=== PATIENT | male | born 1955 | race Caucasian/White ===

== ENCOUNTER → 2017-04-21 | Outpatient (CLI) | payer BC, OTHER ==
[~2017-04-21] MED LIST: ASPI325 PO; ATOR20 PO; ATOR40TA PO; BENA20 PO; BENAML20/5 PO; Benazepril HCl5 MG PO; CEPH500 PO; ELIQUIS2.5 MG PO; ELIQUIS5 MG PO; FENO160 PO; FENO48 PO; GABA600 PO; GLIM4 PO; Keflex500 MG PO; LEVFLO250 PO; LINE600 PO; METO100ER PO; OMEP20ER PO; SPIR25 PO; Silvadene20 GM TOP; TRADJENTA5 MG PO; Toprol Xl200 MG PO; WARF10 PO
[2017-04-21 09:22] LABS: CHOL/HDL RATIO 4.3; Cholesterol 154 mg/dL (50-200); HDL Cholesterol 36 mg/dL (>39); LDL/HDL RATIO 1.3; Low Density Lipoprotein Chol 48 mg/dL (0-110); Triglycerides 348 mg/dL (30-160); Very Low Density Lipoprot Chol 70 mg/dL (6-32)
== END | disposition home or self-care (01) ==
LOC: LAB DAV 08:53
PROVIDERS: Internal Medicine Nephrology
DX: E78.00 Pure hypercholesterolemia, unspecified (principal)
CPT/HCPCS: 80061

== ENCOUNTER → 2017-07-12 | Outpatient (CLI) | payer BC, SELFPAY | END | disposition home or self-care (01) | LOC: LAB EV 11:31 | DX: E11.65 Type 2 diabetes mellitus with hyperglycemia (principal) | CPT/HCPCS: 83036 ==

== ENCOUNTER → 2017-09-25 | Outpatient (CLI) | payer BC, SELFPAY ==
[2017-09-25 11:02] LABS: Albumin, Blood 3.8 g/dL (3.4-5.0); Bilirubin, Direct 0.1 mg/dL (0.0-0.3); Bilirubin, Indirect 0.6 mg/dL (0.1-0.7); Bilirubin, Total 0.7 mg/dL (0.1-1.0); Globulin, Blood 3.7 g/dL (2.2-4.0); Total Protein, Blood 7.5 g/dL (6.4-8.2)
== END ==
LOC: LAB DAV 09:50
PROVIDERS: Internal Medicine Nephrology
DX: R10.9 Unspecified abdominal pain (principal); R19.7 Diarrhea, unspecified
CPT/HCPCS: 80076; 82150; 83690

== ENCOUNTER 2018-05-24 08:19 | Inpatient (IN) | payer BC, MEDICARE ==
[~2018-05-24] VITALS: Ht 188 cm; Wt 131.9 kg
[~2018-05-24 08:19] MED LIST changes: -OMEP20ER PO; +OMEPRAZOLE MAGN20 MG PO
[2018-05-24] MEDS ORDERED: BIOTIN5 MG PO (08:59)
[2018-05-24] MEDS ORDERED: FURO80 PO (09:00)
[2018-05-24] MEDS ORDERED: DILT30 PO (09:00)
[2018-05-24] MEDS ORDERED: GABA100 PO (09:00)
[2018-05-24] MEDS ORDERED: NEPHRO-VITE RX1 EACH PO (09:02)
[2018-05-24] MEDS ORDERED: TAMS.4ER PO (09:02)
[2018-05-24] MEDS ORDERED: Requip0.5 MG PO (09:02)
[2018-05-24] MEDS ORDERED: INSULANPEN SC (09:03)
[2018-05-24] MEDS ORDERED: AMOCLA500 PO (09:29)
[2018-05-24 09:39] LABS: BASOPHILS ABSOLUTE AUTO 0.04 K/mm3 (0.00-0.23); BASOPHILS PERCENT AUTO 0 % (0-2); EOSINOPHILS PERCENT AUTO 2 % (0-6); Hematocrit 27.3 % (37.0-53.0); Hemoglobin 8.5 g/dL (13.5-17.5); IMMATURE GRAN ABSOLUTE AUTO 0.03 K/mm3 (0.00-0.10); IMMATURE GRAN PERCENT AUTO 0 % (0-1); LYMPHOCYTES ABSOLUTE AUTO 1.35 K/mm3 (0.84-5.20); LYMPHOCYTES PERCENT AUTO 12 % (21-46); MONOCYTES ABSOLUTE AUTO 0.88 K/mm3 (0.16-1.47); MONOCYTES PERCENT AUTO 8 % (4-13); Mean Corpuscular HGB 29.9 pg (26.0-34.0); Mean Corpuscular HGB Conc 31.1 g/dL (31.5-36.5); Mean Corpuscular Volume 96 fL (80-100); Mean Platelet Volume 11.5 fL (9.1-12.4); NEUTROPHILS ABSOLUTE AUTO 8.43 K/mm3 (1.96-9.15); NEUTROPHILS PERCENT AUTO 77 % (41-73); Platelet Count 196 K/mm3 (150-400); RDW Coefficient Variation 13.8 % (11.7-14.2); RDW Standard Deviation 48.8 fL (35.1-46.3); Red Blood Cell Count 2.84 M/mm3 (4.30-5.90); White Blood Cell Count 10.93 K/mm3 (4.00-11.30)
[2018-05-24 09:57] LABS: Albumin, Blood 3.2 g/dL (3.4-5.0); Albumin/Globulin Ratio 0.8 (0.8-1.8); Bilirubin, Total 0.4 mg/dL (0.1-1.0); Bun/Creatinine Ratio 7.3 (12.0-20.0); Calcium, Blood 8.4 mg/dL (8.5-10.1); Creatinine, Blood 4.82 mg/dL (0.60-1.20); Potassium, Blood 4.1 mmol/L (3.5-5.5); Total Protein, Blood 7.2 g/dL (6.4-8.2)
[2018-05-24] MEDS ORDERED: TRULICITY1.5 MG/0.5 SC (13:19)
[2018-05-24] MEDS ORDERED: Neupro1 EAC1 TOP (13:19)
[2018-05-24] MEDS ORDERED: VITAMIN D5000 UNIT PO (13:20)
[2018-05-24] MEDS ORDERED: FISH OIL 1,001000 MG PO (13:23)
[2018-05-24] MEDS ORDERED: DILTIAZEM 24HR300 MG PO (15:49)
--- NOTE | 2018-05-24 18:30 | NUR ---
PATIENT ADMISSION THE PATIENT WAS ADMITTED TO THE MEDICAL FLOOR, ROOM # 340 AT 1540, FROM THE . REPORT WAS RECEIVED FROM CHEO PHAM. THE PATIENT'S VITALS WNL, HE IS A&O X4, WITH LUNGS THAT WERE CLEAR, BUT DIM AT THE BASES. THE PATIENT'S ADMISSION WAS COMPLETED AT THAT TIME. THE PATIENT IS RESTING AT THIS TIME WILL CONTINUE TO MONITOR.
[2018-05-25 05:25] LABS: BASOPHILS ABSOLUTE AUTO 0.04 K/mm3 (0.00-0.23); BASOPHILS PERCENT AUTO 1 % (0-2); EOSINOPHILS ABSOLUTE AUTO 0.33 K/mm3 (0.00-0.68); EOSINOPHILS PERCENT AUTO 4 % (0-6); Hematocrit 25.2 % (37.0-53.0); Hemoglobin 8.1 g/dL (13.5-17.5); IMMATURE GRAN ABSOLUTE AUTO 0.03 K/mm3 (0.00-0.10); IMMATURE GRAN PERCENT AUTO 0 % (0-1); LYMPHOCYTES ABSOLUTE AUTO 1.36 K/mm3 (0.84-5.20); LYMPHOCYTES PERCENT AUTO 16 % (21-46); MONOCYTES ABSOLUTE AUTO 0.68 K/mm3 (0.16-1.47); MONOCYTES PERCENT AUTO 8 % (4-13); Mean Corpuscular HGB 30.5 pg (26.0-34.0); Mean Corpuscular HGB Conc 32.1 g/dL (31.5-36.5); Mean Corpuscular Volume 95 fL (80-100); Mean Platelet Volume 11.1 fL (9.1-12.4); NEUTROPHILS ABSOLUTE AUTO 6.11 K/mm3 (1.96-9.15); NEUTROPHILS PERCENT AUTO 71 % (41-73); Platelet Count 187 K/mm3 (150-400); RDW Coefficient Variation 13.8 % (11.7-14.2); RDW Standard Deviation 47.6 fL (35.1-46.3); Red Blood Cell Count 2.66 M/mm3 (4.30-5.90); White Blood Cell Count 8.55 K/mm3 (4.00-11.30)
[2018-05-25 05:45] LABS: Albumin, Blood 2.8 g/dL (3.4-5.0); Albumin/Globulin Ratio 0.8 (0.8-1.8); Bilirubin, Total 0.6 mg/dL (0.1-1.0); Bun/Creatinine Ratio 7.4 (12.0-20.0); Calcium, Blood 8.1 mg/dL (8.5-10.1); Creatinine, Blood 5.65 mg/dL (0.60-1.20); Globulin, Blood 3.7 g/dL (2.2-4.0); Magnesium, Blood 2.3 mg/dL (1.6-2.4); Phosphorus, Blood 4.8 mg/dL (2.5-4.9); Total Protein, Blood 6.5 g/dL (6.4-8.2)
--- NOTE | 2018-05-25 07:30 | NUR ---
call light in reach, a+o, waiting to talk to hospitalist, wrapped toe to protect, room air, up on own, walking rounds completed with day staff
[2018-05-25 18:26] LABS: Vancomycin, Random 8.2 ug/mL
--- NOTE | 2018-05-25 19:02 | NUR ---
SHIFT SUMMARY ANDREA WENT TO HD TODAY. STARTED NEW PIV. INDEPENDENT IN ROOM. WOUND ON L FOOT CLEANSED AND NEW DRESSING PLACED. CBGS WNL. NEED TO CALL PODIATRY ON SUNDAY PER DR VILLARREAL, SHE IS AWARE THAT THERE IS NO PODIATRY RECORDS ASSISTANT THIS WEEKEND. DENIED PAIN. TOOK MEDS PRESCRIBED. WCTM
[2018-05-26 05:10] LABS: Hematocrit 29.5 % (37.0-53.0); Hemoglobin 9.4 g/dL (13.5-17.5)
[2018-05-26 06:03] LABS: Anion Gap 9 mmol/L (6-16); Blood Urea Nitrogen 32 mg/dL (8-24); Bun/Creatinine Ratio 7.2 (12.0-20.0); CO2, Blood 34 mmol/L (21-32); Calcium, Blood 8.6 mg/dL (8.5-10.1); Chloride, Blood 96 mmol/L (98-108); Creatinine, Blood 4.42 mg/dL (0.60-1.20); Glomerular Filtration Rate 14 (60-); Glucose, Blood 115 mg/dL (70-99); Magnesium, Blood 2.4 mg/dL (1.6-2.4); Phosphorus, Blood 5.1 mg/dL (2.5-4.9); Sodium, Blood 139 mmol/L (136-145)
--- NOTE | 2018-05-26 07:31 | NUR ---
a+o, rewrapped toe post shower, awaiting chance to call poditry consult, no feeling in feet or hands, call light in reach, saline locked room air
[2018-05-26 15:54] LABS: Vancomycin, Random 17.1 ug/mL
--- NOTE | 2018-05-26 17:20 | NUR ---
SHIFT SUMMARY NO ACUTE CHANGES. PATIENT INDEPENDENT IN HIS ROOM. DENIES PAIN, NAUSEA, OR SHORTNESS OF BREATH. WOUND CARE GIVEN THIS MORNING. VISITED WITH FAMILY AT BEDSIDE. CALL LIGHT IN REACH, WILL CONTINUE TO MONITOR.
[2018-05-27 05:32] LABS: BASOPHILS ABSOLUTE AUTO 0.07 K/mm3 (0.00-0.23); BASOPHILS PERCENT AUTO 1 % (0-2); EOSINOPHILS PERCENT AUTO 5 % (0-6); Hematocrit 29.3 % (37.0-53.0); Hemoglobin 9.5 g/dL (13.5-17.5); IMMATURE GRAN ABSOLUTE AUTO 0.03 K/mm3 (0.00-0.10); IMMATURE GRAN PERCENT AUTO 0 % (0-1); LYMPHOCYTES ABSOLUTE AUTO 1.68 K/mm3 (0.84-5.20); LYMPHOCYTES PERCENT AUTO 20 % (21-46); MONOCYTES ABSOLUTE AUTO 0.71 K/mm3 (0.16-1.47); MONOCYTES PERCENT AUTO 9 % (4-13); Mean Corpuscular HGB Conc 32.4 g/dL (31.5-36.5); Mean Platelet Volume 10.7 fL (9.1-12.4); NEUTROPHILS ABSOLUTE AUTO 5.41 K/mm3 (1.96-9.15); NEUTROPHILS PERCENT AUTO 65 % (41-73); Platelet Count 210 K/mm3 (150-400); RDW Coefficient Variation 13.8 % (11.7-14.2); RDW Standard Deviation 47.2 fL (35.1-46.3); Red Blood Cell Count 3.17 M/mm3 (4.30-5.90)
[2018-05-27 05:43] LABS: Mean Corpuscular Volume 92 fL (80-100)
[2018-05-27 05:49] LABS: Albumin, Blood 2.8 g/dL (3.4-5.0); Anion Gap 8 mmol/L (6-16); Blood Urea Nitrogen 44 mg/dL (8-24); Bun/Creatinine Ratio 8.3 (12.0-20.0); CO2, Blood 32 mmol/L (21-32); Calcium, Blood 8.5 mg/dL (8.5-10.1); Chloride, Blood 98 mmol/L (98-108); Creatinine, Blood 5.31 mg/dL (0.60-1.20); Glomerular Filtration Rate 12 (60-); Glucose, Blood 72 mg/dL (70-99); Magnesium, Blood 2.2 mg/dL (1.6-2.4); Phosphorus, Blood 5.7 mg/dL (2.5-4.9); Sodium, Blood 138 mmol/L (136-145)
--- NOTE | 2018-05-27 07:31 | NUR ---
a+o, saline locked, room air, report given to day shift, concerned about dialysis and poditrey consult which are scheduled to day, informed day shift
[2018-05-27 14:52] LABS: Vancomycin, Random 14.6 ug/mL
--- NOTE | 2018-05-27 18:05 | NUR ---
SHIFT SUMMARY NO ACUTE CHANGES. DR. BALDERAS CONSULTED TODAY, PATIENT WILL HAVE TOE AMPUTATED TOMORROW. NPO AT MIDNIGHT. PATIENT DENIES PAIN, NAUSEA, OR SHORTNESS OF BREATH. INDEPENDENT IN ROOM. CALL LIGHT IN REACH, WILL CONTINUE TO MONITOR.
[2018-05-28 05:31] LABS: Hematocrit 30.6 % (37.0-53.0); Hemoglobin 9.7 g/dL (13.5-17.5)
[2018-05-28 05:48] LABS: Anion Gap 10 mmol/L (6-16); Blood Urea Nitrogen 52 mg/dL (8-24); Bun/Creatinine Ratio 9.8 (12.0-20.0); CO2, Blood 29 mmol/L (21-32); Calcium, Blood 8.4 mg/dL (8.5-10.1); Chloride, Blood 102 mmol/L (98-108); Creatinine, Blood 5.31 mg/dL (0.60-1.20); Glomerular Filtration Rate 12 (60-); Glucose, Blood 113 mg/dL (70-99); Magnesium, Blood 2.4 mg/dL (1.6-2.4); Potassium, Blood 4.6 mmol/L (3.5-5.5); Sodium, Blood 141 mmol/L (136-145)
--- NOTE | 2018-05-28 07:51 | NUR ---
ready for surgery, npo since 2099, held am meds, call light in reach, saline locked, room air, no feeling in feet, walking rounds completed with day staff
--- NOTE | 2018-05-28 10:52 | NUR ---
Patient gave permission to nursing manager to care for him.
[2018-05-28 12:31] LABS: Vancomycin, Random 12.7 ug/mL
--- NOTE | 2018-05-28 13:34 | NUR ---
PT SDS A&O. VSS. 18G IV TO RT AC PATENT. LT ARM HAS FISTULA.
--- NOTE | 2018-05-28 13:46 | NUR ---
AND DR SANTIAGO HAS SEEN PT. NO NEW ORDERS GIVEN. PT DOES NOT HAVE FAMILY HERE BUT NUMBER FROM WAS OBTAINED.
--- NOTE | 2018-05-28 13:56 | NUR ---
DIRECTOR PAYMENT RN (YOLI). BEDSIDE REPORT DONE.
--- NOTE | 2018-05-28 14:29 | NUR ---
05/28/18 1429 Niranjan Duke LIDOCAINE 1% AND BUPIVICAINE 0.5% 1:1 MIXTURE GIVEN PRIOR TO INCISION.
--- NOTE | 2018-05-28 16:09 | NUR ---
PATIENT RETURNED FROM SURGERY @ 4939. A&O X4, WOUND VAC IN PLACE. 4TH AND 5TH TOE AMPUTATED. DENIES ANY PAIN, NAUSEA, OR SOB. DENIES ANY OTHER COMPLAINS. VITAL SIGNS BP 116/73, PULSE 75, RESP 16, TEMP 97.7, 98%. POST OP VITALS PER PROTOCOL. RN WILL CONTINUE TO MONITOR.
--- NOTE | 2018-05-28 19:26 | NUR ---
PATIENT A&O X4. DENIES ANY PAIN, NAUSEA, SOB. SURGERY TODAY, LEFT 4TH AND 5TH TOE AMPUTATION. WOUND VAC IN PLACE. EXTREMETY ELEVATED. FLUIDS RUNNING PER ORDER. POST OP VSS. NO ACUTE CHANGES.
[2018-05-29 06:11] LABS: BASOPHILS ABSOLUTE AUTO 0.06 K/mm3 (0.00-0.23); BASOPHILS PERCENT AUTO 1 % (0-2); EOSINOPHILS ABSOLUTE AUTO 0.23 K/mm3 (0.00-0.68); EOSINOPHILS PERCENT AUTO 3 % (0-6); Hematocrit 35.8 % (37.0-53.0); Hemoglobin 11.6 g/dL (13.5-17.5); IMMATURE GRAN ABSOLUTE AUTO 0.03 K/mm3 (0.00-0.10); IMMATURE GRAN PERCENT AUTO 0 % (0-1); LYMPHOCYTES ABSOLUTE AUTO 1.68 K/mm3 (0.84-5.20); LYMPHOCYTES PERCENT AUTO 21 % (21-46); MONOCYTES ABSOLUTE AUTO 0.58 K/mm3 (0.16-1.47); MONOCYTES PERCENT AUTO 7 % (4-13); Mean Corpuscular HGB 29.7 pg (26.0-34.0); Mean Corpuscular HGB Conc 32.4 g/dL (31.5-36.5); Mean Corpuscular Volume 92 fL (80-100); Mean Platelet Volume 11.1 fL (9.1-12.4); NEUTROPHILS ABSOLUTE AUTO 5.28 K/mm3 (1.96-9.15); NEUTROPHILS PERCENT AUTO 67 % (41-73); Platelet Count 166 K/mm3 (150-400); RDW Coefficient Variation 13.9 % (11.7-14.2); RDW Standard Deviation 46.5 fL (35.1-46.3); White Blood Cell Count 7.86 K/mm3 (4.00-11.30)
[2018-05-29 06:12] LABS: Albumin, Blood 2.9 g/dL (3.4-5.0); Anion Gap 8 mmol/L (6-16); Blood Urea Nitrogen 41 mg/dL (8-24); Bun/Creatinine Ratio 9.1 (12.0-20.0); CO2, Blood 28 mmol/L (21-32); Calcium, Blood 8.2 mg/dL (8.5-10.1); Chloride, Blood 103 mmol/L (98-108); Creatinine, Blood 4.52 mg/dL (0.60-1.20); Glomerular Filtration Rate 14 (60-); Glucose, Blood 111 mg/dL (70-99); Magnesium, Blood 2.2 mg/dL (1.6-2.4); Phosphorus, Blood 5.3 mg/dL (2.5-4.9); Potassium, Blood 4.7 mmol/L (3.5-5.5); Sodium, Blood 139 mmol/L (136-145)
--- NOTE | 2018-05-29 07:29 | NUR ---
room air, ns infusing, call light in reach, walking rounds completed with day staff, wound vac working well
--- NOTE | 2018-05-29 11:19 | NUR ---
SPOKE WITH DR. GARCIA STATED TO HOLD OFF WOUND VAC CHANGES UNTIL 05/30.
[2018-05-29 16:40] LABS: Vancomycin, Random 19.8 ug/mL
[2018-05-29] MEDS ORDERED: ACET325 PO (17:26)
[2018-05-29] MEDS ORDERED: Bactrim Ds Tab1 EACH PO (17:27)
--- NOTE | 2018-05-29 19:49 | NUR ---
SHIFT SUMMARY PATIENT A&O X4, INDEPENDENT IN THE ROOM. DENIES ANY PAIN. IV X2 IN RIGHT ARM D/C, WNL. DISCHARGE INSTRUCTIONS REVIEWED. WOUND VAC IN PLACE. EXTRA WOUNDVAC SUPPLIES SENT WITH PATIENT. FOLLOW UP APPOINTMENT MADE WITH DR. BALDERAS TOMORROW AT 1030AM. ALL BELONGINGS IN HAND. ESCORTED OUT IN WHEELCHAIR BY BLENDER OPERATOR.
== END 2018-05-29 18:51 | disposition home or self-care (01) | DRG 617 ==
LOC: ER 08:19 → ERHOLD 10:41 → MEDS 10:41
PROVIDERS: Emergency Medicine; Internal Medicine Nephrology; Orthopaedic Surgery; Pharmacist; ADMIT Internal Medicine
PROC: 5A1D70Z Performance of Urinary Filtration, Intermittent, Less than 6 Hours Per Day (ICD-10-PCS; 2018-05-25)
PROC: 30233N1 Transfusion of Nonautologous Red Blood Cells into Peripheral Vein, Percutaneous Approach (ICD-10-PCS; 2018-05-25)
PROC: 0Y6W0Z0 Detachment at Left 4th Toe, Complete, Open Approach (ICD-10-PCS; 2018-05-28)
PROC: 0JBR0ZZ Excision of Left Foot Subcutaneous Tissue and Fascia, Open Approach (ICD-10-PCS; 2018-05-28)
PROC: 5A1D70Z Performance of Urinary Filtration, Intermittent, Less than 6 Hours Per Day (ICD-10-PCS; 2018-05-28)
PROC: 0Y6Y0Z0 Detachment at Left 5th Toe, Complete, Open Approach (ICD-10-PCS; principal; 2018-05-28 14:00)
DX: E11.69 Type 2 diabetes mellitus with other specified complication (principal); E11.52 Type 2 diabetes mellitus with diabetic peripheral angiopathy with gangrene; I96 Gangrene, not elsewhere classified; I12.0 Hypertensive chronic kidney disease with stage 5 chronic kidney disease or end stage renal disease; M86.9 Osteomyelitis, unspecified; E11.621 Type 2 diabetes mellitus with foot ulcer; L97.523 Non-pressure chronic ulcer of other part of left foot with necrosis of muscle; N18.6 End stage renal disease; E11.22 Type 2 diabetes mellitus with diabetic chronic kidney disease; Z99.2 Dependence on renal dialysis; Z87.891 Personal history of nicotine dependence; N40.1 Benign prostatic hyperplasia with lower urinary tract symptoms; G47.33 Obstructive sleep apnea (adult) (pediatric); E11.42 Type 2 diabetes mellitus with diabetic polyneuropathy; E66.01 Morbid (severe) obesity due to excess calories; K21.9 Gastro-esophageal reflux disease without esophagitis; Z86.718 Personal history of other venous thrombosis and embolism; E78.5 Hyperlipidemia, unspecified; E11.610 Type 2 diabetes mellitus with diabetic neuropathic arthropathy; L03.032 Cellulitis of left toe; G25.81 Restless legs syndrome
CPT/HCPCS: 36415; 80053; 80069; 80202; 82947; 83735; 84100; 84132; 85014; 85018; 85025; 85651; 86140; 86850; 86900; 86901; 86923; 87040; 87070; 87071; 87075; 87205; 93005; 93010; 93922; 93971; 96374; 96375; 99285-25; J0696; J0881; J2250; J3010; J3370; J7030; J7050; P9016

== ENCOUNTER 2018-06-07 00:18 | Day surgery (SDC) | payer BC, MEDICARE ==
[~2018-06-07 00:18] MED LIST changes: +ACET325 PO; +AMOCLA500 PO; +BIOTIN5 MG PO; +Bactrim Ds Tab1 EACH PO; +DILT30 PO; +DILTIAZEM 24HR300 MG PO; +FISH OIL 1,001000 MG PO; +FURO80 PO; +GABA100 PO; +INSULANPEN SC; +NEPHRO-VITE RX1 EACH PO; +Neupro1 EAC1 TOP; +Requip0.5 MG PO; +TAMS.4ER PO; +TRULICITY1.5 MG/0.5 SC; +VITAMIN D5000 UNIT PO
== END 2018-06-07 12:00 | disposition home or self-care (01) ==
LOC: WOUND 00:18
DX: E11.621 Type 2 diabetes mellitus with foot ulcer (principal); L97.522 Non-pressure chronic ulcer of other part of left foot with fat layer exposed; E11.69 Type 2 diabetes mellitus with other specified complication; M86.9 Osteomyelitis, unspecified; G47.30 Sleep apnea, unspecified; E11.51 Type 2 diabetes mellitus with diabetic peripheral angiopathy without gangrene; E11.22 Type 2 diabetes mellitus with diabetic chronic kidney disease; I13.2 Hypertensive heart and chronic kidney disease with heart failure and with stage 5 chronic kidney disease, or end stage renal disease; N18.6 End stage renal disease; E11.40 Type 2 diabetes mellitus with diabetic neuropathy, unspecified; I82.409 Acute embolism and thrombosis of unspecified deep veins of unspecified lower extremity; I49.9 Cardiac arrhythmia, unspecified; M14.672 Charcot's joint, left ankle and foot
CPT/HCPCS: G0463

== ENCOUNTER 2018-06-10 13:46 | Day surgery (SDC) | payer BC, MEDICARE | END 2018-06-10 22:49 | disposition home or self-care (01) | LOC: WOUND 13:46 | DX: T81.89XA Other complications of procedures, not elsewhere classified, initial encounter (principal); E11.621 Type 2 diabetes mellitus with foot ulcer; L97.826 Non-pressure chronic ulcer of other part of left lower leg with bone involvement without evidence of necrosis; I13.2 Hypertensive heart and chronic kidney disease with heart failure and with stage 5 chronic kidney disease, or end stage renal disease; E11.22 Type 2 diabetes mellitus with diabetic chronic kidney disease; N18.6 End stage renal disease; I50.9 Heart failure, unspecified; I48.91 Unspecified atrial fibrillation; E11.42 Type 2 diabetes mellitus with diabetic polyneuropathy; E11.40 Type 2 diabetes mellitus with diabetic neuropathy, unspecified; E78.5 Hyperlipidemia, unspecified; G47.30 Sleep apnea, unspecified; Z86.718 Personal history of other venous thrombosis and embolism; Z89.422 Acquired absence of other left toe(s); Z87.39 Personal history of other diseases of the musculoskeletal system and connective tissue ==

== ENCOUNTER 2018-06-14 00:22 | Day surgery (SDC) | payer BC, MEDICARE | END 2018-06-14 23:19 | disposition home or self-care (01) | LOC: WOUND 00:22 | DX: E11.621 Type 2 diabetes mellitus with foot ulcer (principal); M86.9 Osteomyelitis, unspecified; E11.40 Type 2 diabetes mellitus with diabetic neuropathy, unspecified; I13.11 Hypertensive heart and chronic kidney disease without heart failure, with stage 5 chronic kidney disease, or end stage renal disease; E11.22 Type 2 diabetes mellitus with diabetic chronic kidney disease; I50.9 Heart failure, unspecified; N18.6 End stage renal disease; I25.10 Atherosclerotic heart disease of native coronary artery without angina pectoris; G47.30 Sleep apnea, unspecified; Z89.422 Acquired absence of other left toe(s); Z87.39 Personal history of other diseases of the musculoskeletal system and connective tissue ==

== ENCOUNTER 2018-06-19 01:25 | Day surgery (SDC) | payer BC, MEDICARE | END 2018-06-19 23:11 | disposition home or self-care (01) | LOC: WOUND 01:25 | DX: E11.69 Type 2 diabetes mellitus with other specified complication (principal); M86.8X8 Other osteomyelitis, other site; S91.105A Unspecified open wound of left lesser toe(s) without damage to nail, initial encounter; E11.42 Type 2 diabetes mellitus with diabetic polyneuropathy; M14.672 Charcot's joint, left ankle and foot; Z89.442 Acquired absence of left ankle; Z87.39 Personal history of other diseases of the musculoskeletal system and connective tissue | CPT/HCPCS: G0463 ==

== ENCOUNTER 2018-06-21 15:00 | Day surgery (SDC) | payer BC, MEDICARE | END 2018-06-21 23:05 | disposition home or self-care (01) | LOC: WOUND 15:00 | DX: E11.69 Type 2 diabetes mellitus with other specified complication (principal); L97.526 Non-pressure chronic ulcer of other part of left foot with bone involvement without evidence of necrosis; M14.672 Charcot's joint, left ankle and foot; E11.42 Type 2 diabetes mellitus with diabetic polyneuropathy; I13.2 Hypertensive heart and chronic kidney disease with heart failure and with stage 5 chronic kidney disease, or end stage renal disease; E11.22 Type 2 diabetes mellitus with diabetic chronic kidney disease; N18.6 End stage renal disease; I50.9 Heart failure, unspecified; I48.91 Unspecified atrial fibrillation; G47.30 Sleep apnea, unspecified; E78.5 Hyperlipidemia, unspecified; Z89.422 Acquired absence of other left toe(s); Z86.718 Personal history of other venous thrombosis and embolism ==

== ENCOUNTER 2018-06-24 00:20 | Day surgery (SDC) | payer BC, MEDICARE | END 2018-06-24 22:46 | disposition home or self-care (01) | LOC: WOUND 00:20 | DX: T81.89XA Other complications of procedures, not elsewhere classified, initial encounter (principal); E11.621 Type 2 diabetes mellitus with foot ulcer; L97.522 Non-pressure chronic ulcer of other part of left foot with fat layer exposed; G47.30 Sleep apnea, unspecified; E11.51 Type 2 diabetes mellitus with diabetic peripheral angiopathy without gangrene; E11.42 Type 2 diabetes mellitus with diabetic polyneuropathy; E11.22 Type 2 diabetes mellitus with diabetic chronic kidney disease; I13.2 Hypertensive heart and chronic kidney disease with heart failure and with stage 5 chronic kidney disease, or end stage renal disease; I50.9 Heart failure, unspecified; N18.6 End stage renal disease; Z89.422 Acquired absence of other left toe(s) ==

== ENCOUNTER 2018-06-26 14:55 | Day surgery (SDC) | payer BC, MEDICARE | END 2018-06-26 22:59 | disposition home or self-care (01) | LOC: WOUND 14:55 | DX: T87.89 Other complications of amputation stump (principal); E11.622 Type 2 diabetes mellitus with other skin ulcer; L97.526 Non-pressure chronic ulcer of other part of left foot with bone involvement without evidence of necrosis; E11.51 Type 2 diabetes mellitus with diabetic peripheral angiopathy without gangrene; E11.22 Type 2 diabetes mellitus with diabetic chronic kidney disease; I13.2 Hypertensive heart and chronic kidney disease with heart failure and with stage 5 chronic kidney disease, or end stage renal disease; I50.9 Heart failure, unspecified; E11.40 Type 2 diabetes mellitus with diabetic neuropathy, unspecified; N18.6 End stage renal disease; G47.30 Sleep apnea, unspecified ==

== ENCOUNTER 2018-06-28 15:25 | Day surgery (SDC) | payer BC, MEDICARE | END 2018-06-28 23:37 | disposition home or self-care (01) | LOC: WOUND 15:25 | DX: T81.89XA Other complications of procedures, not elsewhere classified, initial encounter (principal); E11.621 Type 2 diabetes mellitus with foot ulcer; L97.526 Non-pressure chronic ulcer of other part of left foot with bone involvement without evidence of necrosis; E11.22 Type 2 diabetes mellitus with diabetic chronic kidney disease; I13.2 Hypertensive heart and chronic kidney disease with heart failure and with stage 5 chronic kidney disease, or end stage renal disease; I50.9 Heart failure, unspecified; N18.6 End stage renal disease; E11.40 Type 2 diabetes mellitus with diabetic neuropathy, unspecified; E11.51 Type 2 diabetes mellitus with diabetic peripheral angiopathy without gangrene; G47.30 Sleep apnea, unspecified ==

== ENCOUNTER 2018-07-01 10:51 | Day surgery (SDC) | payer BC, MEDICARE | END 2018-07-01 22:46 | disposition home or self-care (01) | LOC: WOUND 10:51 | DX: T87.89 Other complications of amputation stump (principal); E11.621 Type 2 diabetes mellitus with foot ulcer; L97.526 Non-pressure chronic ulcer of other part of left foot with bone involvement without evidence of necrosis; E11.42 Type 2 diabetes mellitus with diabetic polyneuropathy; M14.672 Charcot's joint, left ankle and foot; E11.51 Type 2 diabetes mellitus with diabetic peripheral angiopathy without gangrene; E11.40 Type 2 diabetes mellitus with diabetic neuropathy, unspecified; E11.22 Type 2 diabetes mellitus with diabetic chronic kidney disease; I13.2 Hypertensive heart and chronic kidney disease with heart failure and with stage 5 chronic kidney disease, or end stage renal disease; N18.6 End stage renal disease ==

== ENCOUNTER 2018-07-03 14:44 | Day surgery (SDC) | payer BC, MEDICARE | END 2018-07-03 22:42 | disposition home or self-care (01) | LOC: WOUND 14:44 | DX: T87.89 Other complications of amputation stump (principal); E11.621 Type 2 diabetes mellitus with foot ulcer; L97.526 Non-pressure chronic ulcer of other part of left foot with bone involvement without evidence of necrosis; M14.672 Charcot's joint, left ankle and foot; E11.42 Type 2 diabetes mellitus with diabetic polyneuropathy; G47.30 Sleep apnea, unspecified; E11.51 Type 2 diabetes mellitus with diabetic peripheral angiopathy without gangrene; I13.2 Hypertensive heart and chronic kidney disease with heart failure and with stage 5 chronic kidney disease, or end stage renal disease; I50.9 Heart failure, unspecified; N18.6 End stage renal disease; E11.40 Type 2 diabetes mellitus with diabetic neuropathy, unspecified; Z89.422 Acquired absence of other left toe(s); Z87.39 Personal history of other diseases of the musculoskeletal system and connective tissue ==

== ENCOUNTER 2018-07-05 14:50 | Day surgery (SDC) | payer BC, MEDICARE | END 2018-07-05 15:32 | disposition home or self-care (01) | LOC: WOUND 14:50 | DX: T87.89 Other complications of amputation stump (principal); E11.621 Type 2 diabetes mellitus with foot ulcer; L97.526 Non-pressure chronic ulcer of other part of left foot with bone involvement without evidence of necrosis; M14.672 Charcot's joint, left ankle and foot; E11.42 Type 2 diabetes mellitus with diabetic polyneuropathy; E11.22 Type 2 diabetes mellitus with diabetic chronic kidney disease; I13.2 Hypertensive heart and chronic kidney disease with heart failure and with stage 5 chronic kidney disease, or end stage renal disease; I50.9 Heart failure, unspecified; N18.6 End stage renal disease; G47.30 Sleep apnea, unspecified; Z89.422 Acquired absence of other left toe(s); Z87.39 Personal history of other diseases of the musculoskeletal system and connective tissue ==

== ENCOUNTER 2018-07-08 11:14 | Day surgery (SDC) | payer BC, MEDICARE | END 2018-07-08 22:48 | disposition home or self-care (01) | LOC: WOUND 11:14 | DX: T87.89 Other complications of amputation stump (principal); E11.621 Type 2 diabetes mellitus with foot ulcer; L97.526 Non-pressure chronic ulcer of other part of left foot with bone involvement without evidence of necrosis; G47.30 Sleep apnea, unspecified; E11.22 Type 2 diabetes mellitus with diabetic chronic kidney disease; I13.2 Hypertensive heart and chronic kidney disease with heart failure and with stage 5 chronic kidney disease, or end stage renal disease; I50.9 Heart failure, unspecified; N18.6 End stage renal disease; E11.51 Type 2 diabetes mellitus with diabetic peripheral angiopathy without gangrene; E11.42 Type 2 diabetes mellitus with diabetic polyneuropathy; I48.91 Unspecified atrial fibrillation; E78.5 Hyperlipidemia, unspecified; M14.672 Charcot's joint, left ankle and foot; Z86.718 Personal history of other venous thrombosis and embolism; Z87.39 Personal history of other diseases of the musculoskeletal system and connective tissue; Z89.422 Acquired absence of other left toe(s) ==

== ENCOUNTER 2018-07-10 14:40 | Day surgery (SDC) | payer BC, MEDICARE | END 2018-07-10 22:48 | disposition home or self-care (01) | LOC: WOUND 14:40 | DX: T87.89 Other complications of amputation stump (principal); E11.69 Type 2 diabetes mellitus with other specified complication; M86.9 Osteomyelitis, unspecified; E11.42 Type 2 diabetes mellitus with diabetic polyneuropathy; I13.0 Hypertensive heart and chronic kidney disease with heart failure and stage 1 through stage 4 chronic kidney disease, or unspecified chronic kidney disease; E11.22 Type 2 diabetes mellitus with diabetic chronic kidney disease; N18.6 End stage renal disease; I50.9 Heart failure, unspecified; I48.91 Unspecified atrial fibrillation; G47.30 Sleep apnea, unspecified; E78.5 Hyperlipidemia, unspecified; Z86.718 Personal history of other venous thrombosis and embolism ==

== ENCOUNTER 2018-07-12 14:54 | Day surgery (SDC) | payer BC, MEDICARE | END 2018-07-12 23:00 | disposition home or self-care (01) | LOC: WOUND 14:54 | DX: T87.89 Other complications of amputation stump (principal); E11.621 Type 2 diabetes mellitus with foot ulcer; L97.529 Non-pressure chronic ulcer of other part of left foot with unspecified severity; M14.672 Charcot's joint, left ankle and foot; E11.42 Type 2 diabetes mellitus with diabetic polyneuropathy; Z89.422 Acquired absence of other left toe(s); Z87.39 Personal history of other diseases of the musculoskeletal system and connective tissue ==

== ENCOUNTER 2018-07-15 11:07 | Day surgery (SDC) | payer BC, MEDICARE | END 2018-07-15 23:06 | disposition home or self-care (01) | LOC: WOUND 11:07 | DX: T87.89 Other complications of amputation stump (principal); M14.672 Charcot's joint, left ankle and foot; E11.42 Type 2 diabetes mellitus with diabetic polyneuropathy; G47.30 Sleep apnea, unspecified; E78.5 Hyperlipidemia, unspecified; E11.22 Type 2 diabetes mellitus with diabetic chronic kidney disease; I13.2 Hypertensive heart and chronic kidney disease with heart failure and with stage 5 chronic kidney disease, or end stage renal disease; I50.9 Heart failure, unspecified; N18.6 End stage renal disease; Z87.39 Personal history of other diseases of the musculoskeletal system and connective tissue; Z89.422 Acquired absence of other left toe(s); Z86.718 Personal history of other venous thrombosis and embolism ==

== ENCOUNTER 2018-07-24 14:35 | Day surgery (SDC) | payer BC, MEDICARE | END 2018-07-25 22:48 | disposition home or self-care (01) | LOC: WOUND 14:35 | DX: E11.69 Type 2 diabetes mellitus with other specified complication (principal); M86.9 Osteomyelitis, unspecified; E11.622 Type 2 diabetes mellitus with other skin ulcer; L97.822 Non-pressure chronic ulcer of other part of left lower leg with fat layer exposed; M14.672 Charcot's joint, left ankle and foot; I13.0 Hypertensive heart and chronic kidney disease with heart failure and stage 1 through stage 4 chronic kidney disease, or unspecified chronic kidney disease; E11.22 Type 2 diabetes mellitus with diabetic chronic kidney disease; N18.6 End stage renal disease; I50.9 Heart failure, unspecified; E11.42 Type 2 diabetes mellitus with diabetic polyneuropathy; E78.5 Hyperlipidemia, unspecified; I48.91 Unspecified atrial fibrillation; G47.30 Sleep apnea, unspecified; Z86.718 Personal history of other venous thrombosis and embolism; Z89.422 Acquired absence of other left toe(s); Z87.39 Personal history of other diseases of the musculoskeletal system and connective tissue ==

== ENCOUNTER 2018-08-07 11:26 | Day surgery (SDC) | payer BC, MEDICARE | END 2018-08-07 22:48 | disposition home or self-care (01) | LOC: WOUND 11:26 | DX: E11.69 Type 2 diabetes mellitus with other specified complication (principal); E11.621 Type 2 diabetes mellitus with foot ulcer; M86.9 Osteomyelitis, unspecified; L97.522 Non-pressure chronic ulcer of other part of left foot with fat layer exposed; M14.672 Charcot's joint, left ankle and foot; I13.0 Hypertensive heart and chronic kidney disease with heart failure and stage 1 through stage 4 chronic kidney disease, or unspecified chronic kidney disease; E11.22 Type 2 diabetes mellitus with diabetic chronic kidney disease; N18.6 End stage renal disease; I50.9 Heart failure, unspecified; E11.42 Type 2 diabetes mellitus with diabetic polyneuropathy; I48.91 Unspecified atrial fibrillation; G47.30 Sleep apnea, unspecified; E78.5 Hyperlipidemia, unspecified; Z86.718 Personal history of other venous thrombosis and embolism; Z89.422 Acquired absence of other left toe(s); Z87.39 Personal history of other diseases of the musculoskeletal system and connective tissue | CPT/HCPCS: G0463 ==

== ENCOUNTER 2018-08-14 15:03 | Day surgery (SDC) | payer BC, MEDICARE | END 2018-08-14 22:53 | disposition home or self-care (01) | LOC: WOUND 15:03 | DX: T81.89XA Other complications of procedures, not elsewhere classified, initial encounter (principal); E11.621 Type 2 diabetes mellitus with foot ulcer; L97.522 Non-pressure chronic ulcer of other part of left foot with fat layer exposed; G47.30 Sleep apnea, unspecified; I13.2 Hypertensive heart and chronic kidney disease with heart failure and with stage 5 chronic kidney disease, or end stage renal disease; I50.9 Heart failure, unspecified; N18.6 End stage renal disease; E11.51 Type 2 diabetes mellitus with diabetic peripheral angiopathy without gangrene; M14.672 Charcot's joint, left ankle and foot; E11.42 Type 2 diabetes mellitus with diabetic polyneuropathy; Z89.422 Acquired absence of other left toe(s); Z87.39 Personal history of other diseases of the musculoskeletal system and connective tissue | CPT/HCPCS: G0463 ==

== ENCOUNTER 2018-08-27 11:16 | Emergency (ER) | payer BC, MEDICARE ==
[~2018-08-27] VITALS: Ht 188 cm; Wt 129.3 kg
[2018-08-27 11:57] LABS: BASOPHILS ABSOLUTE AUTO 0.09 K/mm3 (0.00-0.23); BASOPHILS PERCENT AUTO 1 % (0-2); EOSINOPHILS ABSOLUTE AUTO 0.24 K/mm3 (0.00-0.68); EOSINOPHILS PERCENT AUTO 4 % (0-6); Hematocrit 34.1 % (37.0-53.0); Hemoglobin 11.3 g/dL (13.5-17.5); IMMATURE GRAN ABSOLUTE AUTO 0.03 K/mm3 (0.00-0.10); IMMATURE GRAN PERCENT AUTO 0 % (0-1); LYMPHOCYTES ABSOLUTE AUTO 1.05 K/mm3 (0.84-5.20); LYMPHOCYTES PERCENT AUTO 15 % (21-46); MONOCYTES ABSOLUTE AUTO 0.56 K/mm3 (0.16-1.47); MONOCYTES PERCENT AUTO 8 % (4-13); Mean Corpuscular HGB 31.9 pg (26.0-34.0); Mean Corpuscular HGB Conc 33.1 g/dL (31.5-36.5); Mean Corpuscular Volume 96 fL (80-100); Mean Platelet Volume 11.3 fL (9.1-12.4); NEUTROPHILS ABSOLUTE AUTO 4.98 K/mm3 (1.96-9.15); NEUTROPHILS PERCENT AUTO 72 % (41-73); Platelet Count 183 K/mm3 (150-400); RDW Coefficient Variation 14.5 % (11.7-14.2); RDW Standard Deviation 50.4 fL (35.1-46.3); Red Blood Cell Count 3.54 M/mm3 (4.30-5.90); White Blood Cell Count 6.95 K/mm3 (4.00-11.30)
[2018-08-27 12:20] LABS: Alanine Aminotransfer (ALT/SGP 31 U/L (12-78); Albumin, Blood 3.8 g/dL (3.4-5.0); Albumin/Globulin Ratio 1.1 (0.8-1.8); Alk Phos 135 U/L (50-136); Anion Gap 7 mmol/L (6-16); Aspartate Aminotrans (AST/SGOT 23 U/L (12-37); Bilirubin, Total 0.4 mg/dL (0.1-1.0); Blood Urea Nitrogen 30 mg/dL (8-24); Bun/Creatinine Ratio 11.2 (12.0-20.0); CO2, Blood 35 mmol/L (21-32); Calcium, Blood 8.7 mg/dL (8.5-10.1); Chloride, Blood 97 mmol/L (98-108); Creatinine, Blood 2.67 mg/dL (0.60-1.20); Globulin, Blood 3.6 g/dL (2.2-4.0); Glomerular Filtration Rate 26 (60-); Glucose, Blood 223 mg/dL (70-99); Potassium, Blood 4.2 mmol/L (3.5-5.5); Sodium, Blood 139 mmol/L (136-145); Total Protein, Blood 7.4 g/dL (6.4-8.2); Troponin I <0.015 ng/mL (0.000-0.040)
== END 2018-08-27 14:23 | disposition home or self-care (01) ==
LOC: ER 11:16
PROVIDERS: Emergency Medicine
DX: R07.81 Pleurodynia (principal); I12.9 Hypertensive chronic kidney disease with stage 1 through stage 4 chronic kidney disease, or unspecified chronic kidney disease; E11.22 Type 2 diabetes mellitus with diabetic chronic kidney disease; N18.9 Chronic kidney disease, unspecified; Z79.899 Other long term (current) drug therapy; Z87.891 Personal history of nicotine dependence
CPT/HCPCS: 36415; 71046; 71260; 80053; 83880; 84484; 85025; 93005; 93010; 99285-25; Q9967

== ENCOUNTER 2018-09-04 14:44 | Day surgery (SDC) | payer BC, MEDICARE | END 2018-09-04 22:47 | disposition home or self-care (01) | LOC: WOUND | DX: T87.89 Other complications of amputation stump (principal); E11.621 Type 2 diabetes mellitus with foot ulcer; E11.22 Type 2 diabetes mellitus with diabetic chronic kidney disease; M14.672 Charcot's joint, left ankle and foot; E11.42 Type 2 diabetes mellitus with diabetic polyneuropathy; I13.2 Hypertensive heart and chronic kidney disease with heart failure and with stage 5 chronic kidney disease, or end stage renal disease; I50.9 Heart failure, unspecified; N18.6 End stage renal disease; G47.30 Sleep apnea, unspecified; E78.5 Hyperlipidemia, unspecified; I48.91 Unspecified atrial fibrillation; Z87.39 Personal history of other diseases of the musculoskeletal system and connective tissue; Z86.718 Personal history of other venous thrombosis and embolism | CPT/HCPCS: G0463 ==

== ENCOUNTER → 2018-10-13 | Outpatient (CLI) | payer BC, MEDICARE | END | disposition home or self-care (01) | LOC: LAB SHORT 12:42 → LAB EV 12:42 | DX: L08.9 Local infection of the skin and subcutaneous tissue, unspecified (principal) | CPT/HCPCS: 87070; 87205 ==

== ENCOUNTER 2019-02-28 19:02 | Observation (INO) | payer BC, MEDICARE ==
[~2019-02-28] VITALS: Ht 188 cm; Wt 137.8 kg
[2019-02-28 19:53] LABS: BASOPHILS PERCENT AUTO 0 % (0-2); EOSINOPHILS PERCENT AUTO 0 % (0-6); Hematocrit 39.1 % (37.0-53.0); IMMATURE GRAN ABSOLUTE AUTO 0.16 K/mm3 (0.00-0.10); IMMATURE GRAN PERCENT AUTO 1 % (0-1); LYMPHOCYTES ABSOLUTE AUTO 0.53 K/mm3 (0.84-5.20); LYMPHOCYTES PERCENT AUTO 4 % (21-46); MONOCYTES ABSOLUTE AUTO 0.51 K/mm3 (0.16-1.47); MONOCYTES PERCENT AUTO 4 % (4-13); Mean Corpuscular HGB 31.3 pg (26.0-34.0); Mean Corpuscular HGB Conc 33.2 g/dL (31.5-36.5); Mean Corpuscular Volume 94 fL (80-100); Mean Platelet Volume 11.6 fL (9.1-12.4); NEUTROPHILS ABSOLUTE AUTO 11.65 K/mm3 (1.96-9.15); NEUTROPHILS PERCENT AUTO 91 % (41-73); NRBC ABSOLUTE 0.02 K/mm3 (0.00-0.02); NRBC Auto 0.2 /100 WBC (0.0-0.2); Platelet Count 232 K/mm3 (150-400); RDW Coefficient Variation 13.5 % (11.7-14.2); RDW Standard Deviation 46.5 fL (35.1-46.3); Red Blood Cell Count 4.16 M/mm3 (4.30-5.90); White Blood Cell Count 12.85 K/mm3 (4.00-11.30)
[2019-02-28 20:10] LABS: Source, Urine Clean Catch
[2019-02-28 20:15] LABS: Base Excess Venous -0.2 mmol/L; PCO2 Venous 43.3 mmHg (38-42); PO2 Venous 75.7 mmHg (38-42); pH Blood Venous 7.37 (7.34-7.37)
[2019-02-28 20:16] LABS: Bilirubin, Urine Neg (Neg); Blood, Urine 4+ (Neg); Glucose Qualitative, Urine 4+ (Neg); Ketones, Urine Neg (Neg); Leukocyte Esterase, Urine Neg (Neg); Nitrite, Urine Neg (Neg); Protein, Urine 4+ (Neg); Urobilinogen, Urine NORM (Normal)
[2019-02-28 20:24] LABS: Appearance, Urine Clear (Clear); Color, Urine Yellow (P-Yellow)
[2019-02-28 20:25] LABS: Bacteria Rare /hpf; Squamous Epithelial Cells Not Seen /hpf (Few); White Blood Cells, Urine Not Seen /hpf (0-5)
[2019-02-28 20:38] LABS: Albumin, Blood 3.1 g/dL (3.4-5.0); Albumin/Globulin Ratio 0.8 (0.8-1.8); Bilirubin, Total 0.3 mg/dL (0.1-1.0); Bun/Creatinine Ratio 17.1 (12.0-20.0); Calcium, Blood 7.8 mg/dL (8.5-10.1); Creatinine, Blood 4.33 mg/dL (0.60-1.20); Globulin, Blood 3.7 g/dL (2.2-4.0); Potassium, Blood 5.3 mmol/L (3.5-5.5); Total Protein, Blood 6.8 g/dL (6.4-8.2)
[2019-02-28] MEDS ORDERED: Humalog100 UNIT/3 SC (21:31)
[2019-02-28] MEDS ORDERED: ROPINIROLE HCL1 MG PO (21:32)
[2019-02-28] MEDS ORDERED: MULVITB PO (21:32)
[2019-02-28] MEDS ORDERED: GABA100 PO ×3 (21:32→22:58)
[2019-02-28] MEDS ORDERED: CARTIA XT PO (21:33)
[2019-02-28] MEDS ORDERED: CALCITRIOL0.5 MCG PO (21:34)
[2019-02-28] MEDS ORDERED: TRESIBA FL100 UNIT/1 SC (21:36)
[2019-02-28] MEDS ORDERED: ELIQUIS5 MG PO (21:38)
[2019-02-28] MEDS ORDERED: Ropinirole HCl1 MG PO ×2 (22:59)
--- NOTE | 2019-02-28 23:00 | NUR ---
ASSUMED PT CARE FROM ALEE RN AT 2150. PT ARRIVED ON UNIT ALERT AND ORIENTED AND ABLE TO MAKE NEEDS KNOWN. INSULIN GTT INFUSING AT 6.9 UNITS/HR, WHICH WAS TURNED DOWN TO 3 UNITS/HR UPON ARRIVAL. CHECKED BLOOD SUGAR UPON ARRIVAL WITH READING TO HIGH TO READ ON GLUCOMETER. CHAIR AND COUCH MAKER ARRIVED SHORTLY AFTER TO OBTAIN BLOOD GLUCOSE. DR. ALONSO AT BEDSIDE SHORTLY AFTER PT'S ARRIVAL. DR. BUSTILLO CALLED TO GIVE ORDERS FOR PERITONEAL DIALYSIS AND MORNING LABS. AV FISTULA TO LEFT FOREARM POSTIIVE BRUIT/THRILL. 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 PT HYPERTENSIVE WITH SBP IN THE 200'S UPON ARRIVAL; HOWEVER, ONCE SETTLED; BP DECREASED TO SBP 150'S. RT AT BEDSIDE TO SET UP CPAP. CALL LIGHT LEFT WITHIN REACH. PT ABLE TO MAKE HIS NEEDS KNOWN. WILL CONTINUE TO MONITOR.
--- NOTE | 2019-02-28 23:17 | NUR ---
CHEO QUIROZ AT BEDSIDE TO SET UP PERITONEAL DIALYSIS
[2019-02-28 23:30] LABS: Glucose, Blood 662 mg/dL (70-99)
--- NOTE | 2019-02-28 23:56 | NUR ---
PERITONEAL DIALYSIS ORDERED BY DR BUSTILLO FOR PATIENT ADMITTED TO ICU WITH CRITCAL HYPERGLYCEMIA. PATIENT AWAKE, ALERT AND CURRENTLY IN NO OVERT DISTRESS FOLLOWING STABILIZING TREATMENT IN ER AND ICU. CYCLER OBTAINED FROM STORAGE AND SET UP AND PROGRAMMED PER DR BUSTILLO'S RX. FOLLOWING TEST AND PRIME PATIENT AESEPTICALLY CONNECTED AND THERAPY STARTED. PATIENT IS NORMALLY " DRY " IN THE DAYTIME, INITIAL DRAIN WAS MINIMAL AND REQUIRED BYPASS. FILL #1 TOLERATED WITH NO DISCOMFORT REPORTED. EXIT SITE CARE WAS DONE. SITE CLEANSED WITH EXCEPT AND NEW STERILE DRESSING APPLIED WITH STRAIN RELIEFS. NO TENDERNESS OR DISCHARGE NOTED. ICU STAFF AWARE OF OVERNIGHT CCPD IN PROGRESS AND POSSIBLE ALARMS THAT MAY OCCUR AND MEASURES TO ADDRESS. [facility] BACK UP AVAILABLE BY PHONE.
[2019-03-01 00:12] LABS: Glucose, Blood 589 mg/dL (70-99)
[2019-03-01 01:11] LABS: Glucose, Blood 541 mg/dL (70-99)
[2019-03-01 02:36] LABS: Glucose, Blood 530 mg/dL (70-99)
[2019-03-01 03:37] LABS: Hematocrit 37.1 % (37.0-53.0); Hemoglobin 12.3 g/dL (13.5-17.5); Mean Corpuscular HGB 30.7 pg (26.0-34.0); Mean Corpuscular HGB Conc 33.2 g/dL (31.5-36.5); Mean Corpuscular Volume 93 fL (80-100); Mean Platelet Volume 11.3 fL (9.1-12.4); Platelet Count 205 K/mm3 (150-400); RDW Coefficient Variation 13.3 % (11.7-14.2); RDW Standard Deviation 45.1 fL (35.1-46.3); Red Blood Cell Count 4.01 M/mm3 (4.30-5.90)
[2019-03-01 04:10] LABS: Glucose, Blood 474 mg/dL (70-99)
[2019-03-01 04:14] LABS: Alanine Aminotransfer (ALT/SGP 41 U/L (12-78); Albumin, Blood 2.8 g/dL (3.4-5.0); Albumin/Globulin Ratio 0.8 (0.8-1.8); Alk Phos 129 U/L (50-136); Anion Gap 11 mmol/L (6-16); Aspartate Aminotrans (AST/SGOT 28 U/L (12-37); Bilirubin, Total 0.3 mg/dL (0.1-1.0); Blood Urea Nitrogen 71 mg/dL (8-24); CO2, Blood 25 mmol/L (21-32); Calcium, Blood 7.7 mg/dL (8.5-10.1); Chloride, Blood 99 mmol/L (98-108); Creatinine, Blood 4.18 mg/dL (0.60-1.20); Globulin, Blood 3.4 g/dL (2.2-4.0); Glomerular Filtration Rate 15 (60-); Glucose, Blood 463 mg/dL (70-99); Phosphorus, Blood 4.3 mg/dL (2.5-4.9); Potassium, Blood 4.9 mmol/L (3.5-5.5); Sodium, Blood 135 mmol/L (136-145); Total Protein, Blood 6.2 g/dL (6.4-8.2)
--- NOTE | 2019-03-01 05:35 | NUR ---
END OF SHIFT SUMMARY NO SIGNIFICANT CHANGES SINCE LAST ENTRY. PT CURRENTLY AT 5 UNITS/HR ON INSULIN GTT. NS INFUSING AT 75MLS/HR. PT IS CURRENTLY DIALYZING VIA PERITONEAL DIALYSIS. PT IS INDEPENDENT WITH URINAL USE. VOIDS ADEQUATELY IN URINAL. PT EAGER TO GET HOME. VERY COOPERATIVE AND COMPLIANT WITH CARE. WILL CONTINUE TO MONITOR UNTIL REPORT IS HANDED OFF TO ONCOMING RN.
--- NOTE | 2019-03-01 07:10 | NUR ---
ASSUMED CARE: RECEIVED BEDSIDE REPORT FROM DARCI RN. PT SITTING UP IN BED UPON ENTERING THE ROOM. PT IS IN HOME CLOTHES AND DENIES ANY PAIN OR DISCOMFORT. BLOOD SUGAR CHECKED DURING REPORT BLOOD SUGAR NOTED TO BE 348, WILL KEEP INSULIN AT CURRENT RATE OF 5 UNITS/HR FOR NOW AND REASSESS WITH NEXT BLOOD SUGAR CHECK. PERITONEAL DIALYSIS CURRENTLY RUNNING AT BEDSIDE. WILL CONTINUE TO MONITOR AND ASSESS FURTHER.
--- NOTE | 2019-03-01 10:51 | NUR ---
DIALYSIS-PD PT NOT CONNECTED TO PD TIL MIDNIGHT,SO LATE BEING COMPLETED.SITE CLEAR. DC'ED TX PER PROTOCAL. SITTING UP IN BED EATING. A&O. DISCUSSED HIS TX IN THE HOSPITAL. ID [id number]. UF [id number]. CHARTED ON I&O. COLOR CLEAR, VERY LIGHT YELLOW. NO SEDATMENT NOTED, NO BLOOD.
--- NOTE | 2019-03-01 13:30 | NUR ---
INSULIN DRIP: DRIP TURNED OFF AT THIS TIME.
--- NOTE | 2019-03-01 18:36 | NUR ---
SHIFT SUMMARY PATIENT IS PLEASANT, ALERT AND ORIENTED INDEPENDENT. BROUGHT TO THE FLOOR FROM ICU AT 1800. PATIENT IS PLEASANT. BLOOD SUGARS HAVE BEEN HIGH ALL DAY BUT SLOWLY COMING DOWN. HE IS PERITONEAL DIALYSIS.
[2019-03-01 19:42] LABS: Glucose, Blood 377 mg/dL (70-99)
--- NOTE | 2019-03-01 20:51 | NUR ---
DIALYSIS-PD PT MOVED OUT OF ICU TO MEDICAL. DR BUSTILLO ORDERED 20 U REG INSULIN TO EACH 6 LITER BAG OF DIANEAL 2.5% DEXTROSE BAGS. SET FOR 9 HOURS TOTAL. 1.43 DWELL TIME, 27462 TOTAL FLUID, 2400 FILL, 1000 LAST FILL. SITE WNL. PT ALERT AND ORIENTED. CONNECTED THE TX TO THE PT AFTER. PRIMING AND PROGRAMING THE MACHINE. DISCUSSED THE TX WITH THE PT AND RN. GAVE HER MY PHONE FOR ALARMS.
[2019-03-02 05:05] LABS: BASOPHILS ABSOLUTE AUTO 0.03 K/mm3 (0.00-0.23); BASOPHILS PERCENT AUTO 0 % (0-2); EOSINOPHILS PERCENT AUTO 0 % (0-6); Hematocrit 42.8 % (37.0-53.0); Hemoglobin 14.1 g/dL (13.5-17.5); IMMATURE GRAN ABSOLUTE AUTO 0.27 K/mm3 (0.00-0.10); IMMATURE GRAN PERCENT AUTO 2 % (0-1); LYMPHOCYTES ABSOLUTE AUTO 1.27 K/mm3 (0.84-5.20); LYMPHOCYTES PERCENT AUTO 10 % (21-46); MONOCYTES ABSOLUTE AUTO 0.85 K/mm3 (0.16-1.47); MONOCYTES PERCENT AUTO 7 % (4-13); Mean Corpuscular HGB 30.8 pg (26.0-34.0); Mean Corpuscular HGB Conc 32.9 g/dL (31.5-36.5); Mean Corpuscular Volume 93 fL (80-100); Mean Platelet Volume 11.1 fL (9.1-12.4); NEUTROPHILS ABSOLUTE AUTO 9.85 K/mm3 (1.96-9.15); NEUTROPHILS PERCENT AUTO 80 % (41-73); NRBC ABSOLUTE 0.02 K/mm3 (0.00-0.02); NRBC Auto 0.2 /100 WBC (0.0-0.2); Platelet Count 232 K/mm3 (150-400); RDW Coefficient Variation 13.4 % (11.7-14.2); RDW Standard Deviation 45.4 fL (35.1-46.3); Red Blood Cell Count 4.58 M/mm3 (4.30-5.90); White Blood Cell Count 12.27 K/mm3 (4.00-11.30)
--- NOTE | 2019-03-02 05:20 | NUR ---
03/02/19 0445 AWAKENED FOR AM VITALS AND LABWORK. STATES HE SLEPT WELL. CONTINUOUS PERITONEAL DIALYSIS IN PROCESS ALL NIGHT WITHOUT PROBLEMS. VITALS STABLE. DENIES ANY S/S OR DISCOMFORT AT THIS TIME.
[2019-03-02 05:45] LABS: Alanine Aminotransfer (ALT/SGP 42 U/L (12-78); Albumin, Blood 2.9 g/dL (3.4-5.0); Albumin/Globulin Ratio 0.8 (0.8-1.8); Alk Phos 124 U/L (50-136); Anion Gap 11 mmol/L (6-16); Aspartate Aminotrans (AST/SGOT 20 U/L (12-37); Bilirubin, Total 0.5 mg/dL (0.1-1.0); Blood Urea Nitrogen 68 mg/dL (8-24); Bun/Creatinine Ratio 16.7 (12.0-20.0); CO2, Blood 23 mmol/L (21-32); Calcium, Blood 8.3 mg/dL (8.5-10.1); Chloride, Blood 101 mmol/L (98-108); Creatinine, Blood 4.07 mg/dL (0.60-1.20); Globulin, Blood 3.5 g/dL (2.2-4.0); Glomerular Filtration Rate 16 (60-); Glucose, Blood 376 mg/dL (70-99); Magnesium, Blood 2.2 mg/dL (1.6-2.4); Phosphorus, Blood 4.4 mg/dL (2.5-4.9); Potassium, Blood 4.7 mmol/L (3.5-5.5); Sodium, Blood 135 mmol/L (136-145); Total Protein, Blood 6.4 g/dL (6.4-8.2)
--- NOTE | 2019-03-02 12:11 | NUR ---
DIALYSIS PT UP EATING BREAKFAST. TX DC'ED PER PROTOCAL. ID [id number] ML. UF [id number]. SOLUTION AFLUENT CLEAR. SITE CLEAR.
[2019-03-02] MEDS ORDERED: Humulin R500 UNIT/1 (12:42)
--- NOTE | 2019-03-02 15:10 | NUR ---
DISCHARGE SUMMARY PATIENT IS PLEASANT, NO ACUTE CONCERNS. NO QUESTIONS AT TME OF DISCARGE. PATIENT MEDICATIONS SENT TO PATIENTS PHARMACY OF CHOICE. REFERRALS PLACED.
== END 2019-03-02 13:05 | disposition home or self-care (01) ==
LOC: ER 19:02 → ICUW 19:04 → ER 21:19 → ICUE 21:19 → ICUW 21:19 → MEDS 21:19 → ICUW 22:02 → ICUE 22:02 → MEDS 03-01 17:32 → ICUE 03-01 17:32 → ENPENDDIS 03-02 12:38 → MEDS 03-02 13:05
PROVIDERS: Internal Medicine; Internal Medicine Nephrology; Physician Assistant; ADMIT Internal Medicine
DX: E11.65 Type 2 diabetes mellitus with hyperglycemia (principal); I16.0 Hypertensive urgency; I12.0 Hypertensive chronic kidney disease with stage 5 chronic kidney disease or end stage renal disease; E11.22 Type 2 diabetes mellitus with diabetic chronic kidney disease; N18.6 End stage renal disease; D63.1 Anemia in chronic kidney disease; N25.81 Secondary hyperparathyroidism of renal origin; K21.9 Gastro-esophageal reflux disease without esophagitis; N40.0 Benign prostatic hyperplasia without lower urinary tract symptoms; E78.5 Hyperlipidemia, unspecified; E87.1 Hypo-osmolality and hyponatremia; G47.30 Sleep apnea, unspecified; E11.40 Type 2 diabetes mellitus with diabetic neuropathy, unspecified; E66.9 Obesity, unspecified; Z68.38 Body mass index [BMI] 38.0-38.9, adult; Z99.2 Dependence on renal dialysis; Z86.718 Personal history of other venous thrombosis and embolism; Z79.01 Long term (current) use of anticoagulants; Z79.4 Long term (current) use of insulin; Z79.899 Other long term (current) drug therapy; Z91.048 Other nonmedicinal substance allergy status
CPT/HCPCS: 36415; 80053; 80069; 81001; 82010; 82803; 82947; 83735; 83880; 83930; 84100; 85025; 85027; 93005; 93010; 99284-25; G0257; G0378; J1815; J7030

== ENCOUNTER 2019-09-08 00:13 | Day surgery (SDC) | payer MEDICARE ==
[~2019-09-08 00:13] MED LIST changes: +CALCITRIOL0.5 MCG PO; +CARTIA XT PO; +Humalog100 UNIT/3 SC; +Humulin R500 UNIT/1; +MULVITB PO; +ROPINIROLE HCL1 MG PO; +Ropinirole HCl1 MG PO; +TRESIBA FL100 UNIT/1 SC
[2019-09-08] MEDS ORDERED: LANTUS SOL100 UNIT/1 SC (15:20)
[2019-09-08] MEDS ORDERED: MELATONIN5 M1 PO (15:21)
== END 2019-09-08 16:30 | disposition home or self-care (01) ==
LOC: ATC 00:13
DX: E11.22 Type 2 diabetes mellitus with diabetic chronic kidney disease (principal); N18.6 End stage renal disease; D63.1 Anemia in chronic kidney disease; N25.81 Secondary hyperparathyroidism of renal origin; Z99.2 Dependence on renal dialysis; Z79.01 Long term (current) use of anticoagulants; Z79.4 Long term (current) use of insulin
CPT/HCPCS: 36415; 36430; 86850; 86900; 86901; 86923; J7050; P9016

== ENCOUNTER 2019-11-21 16:08 | Emergency (ER) | payer MEDICARE, BC ==
[~2019-11-21] VITALS: Ht 188 cm; Wt 137.4 kg
[~2019-11-21 16:08] MED LIST changes: +LANTUS SOL100 UNIT/1 SC; +MELATONIN5 M1 PO
== END 2019-11-21 17:47 | disposition home or self-care (01) ==
LOC: ER 16:08
DX: T85.691A Other mechanical complication of intraperitoneal dialysis catheter, initial encounter (principal); E11.40 Type 2 diabetes mellitus with diabetic neuropathy, unspecified; I10 Essential (primary) hypertension; E78.5 Hyperlipidemia, unspecified; F17.200 Nicotine dependence, unspecified, uncomplicated; Z79.899 Other long term (current) drug therapy; Z91.09 Other allergy status, other than to drugs and biological substances; Z79.4 Long term (current) use of insulin; Z86.718 Personal history of other venous thrombosis and embolism
CPT/HCPCS: 76857; 99284-25

== ENCOUNTER → 2020-06-28 | Outpatient (CLI) | payer MEDICARE, BC ==
[2020-06-28 11:39] LABS: BASOPHILS ABSOLUTE AUTO 0.07 K/mm3 (0.00-0.23); BASOPHILS PERCENT AUTO 1 % (0-2); EOSINOPHILS ABSOLUTE AUTO 0.11 K/mm3 (0.00-0.68); EOSINOPHILS PERCENT AUTO 1 % (0-6); Hematocrit 31.6 % (37.0-53.0); Hemoglobin 10.2 g/dL (13.5-17.5); IMMATURE GRAN ABSOLUTE AUTO 0.05 K/mm3 (0.00-0.10); IMMATURE GRAN PERCENT AUTO 0 % (0-1); LYMPHOCYTES ABSOLUTE AUTO 1.32 K/mm3 (0.84-5.20); LYMPHOCYTES PERCENT AUTO 10 % (21-46); MONOCYTES ABSOLUTE AUTO 1.06 K/mm3 (0.16-1.47); MONOCYTES PERCENT AUTO 8 % (4-13); Mean Corpuscular HGB 29.8 pg (26.0-34.0); Mean Corpuscular HGB Conc 32.3 g/dL (31.5-36.5); Mean Corpuscular Volume 92 fL (80-100); Mean Platelet Volume 12.3 fL (9.1-12.4); NEUTROPHILS ABSOLUTE AUTO 11.15 K/mm3 (1.96-9.15); NEUTROPHILS PERCENT AUTO 81 % (41-73); Platelet Count 215 K/mm3 (150-400); RDW Coefficient Variation 15.1 % (11.7-14.2); RDW Standard Deviation 49.5 fL (35.1-46.3); Red Blood Cell Count 3.42 M/mm3 (4.30-5.90); White Blood Cell Count 13.76 K/mm3 (4.00-11.30)
[2020-06-28 11:49] LABS: Albumin, Blood 2.7 g/dL (3.4-5.0); Albumin/Globulin Ratio 0.7 (0.8-1.8); Bilirubin, Total 0.4 mg/dL (0.1-1.0); Bun/Creatinine Ratio 6.7 (12.0-20.0); Potassium, Blood 4.5 mmol/L (3.5-5.5); Total Protein, Blood 6.7 g/dL (6.4-8.2)
[2020-06-28 11:59] LABS: Creatinine, Blood 8.72 mg/dL (0.60-1.20)
== END | disposition home or self-care (01) ==
LOC: LAB EV 11:34 → LAB SHORT 11:34
PROVIDERS: Physician Assistant
DX: N17.9 Acute kidney failure, unspecified (principal); R11.2 Nausea with vomiting, unspecified
CPT/HCPCS: 80053; 83690; 85025

== ENCOUNTER 2021-01-17 16:04 | Emergency (ER) | payer MEDICARE, BC ==
[~2021-01-17] VITALS: Ht 188 cm; Wt 131.5 kg
[2021-01-17 17:48] LABS: BASOPHILS ABSOLUTE AUTO 0.07 K/mm3 (0.00-0.23); BASOPHILS PERCENT AUTO 1 % (0-2); EOSINOPHILS ABSOLUTE AUTO 0.29 K/mm3 (0.00-0.68); EOSINOPHILS PERCENT AUTO 2 % (0-6); Hematocrit 39.3 % (37.0-53.0); IMMATURE GRAN ABSOLUTE AUTO 0.05 K/mm3 (0.00-0.10); IMMATURE GRAN PERCENT AUTO 0 % (0-1); LYMPHOCYTES ABSOLUTE AUTO 1.12 K/mm3 (0.84-5.20); LYMPHOCYTES PERCENT AUTO 9 % (21-46); MONOCYTES ABSOLUTE AUTO 0.93 K/mm3 (0.16-1.47); MONOCYTES PERCENT AUTO 8 % (4-13); Mean Corpuscular HGB 32.2 pg (26.0-34.0); Mean Corpuscular HGB Conc 33.1 g/dL (31.5-36.5); Mean Corpuscular Volume 97 fL (80-100); Mean Platelet Volume 11.1 fL (9.1-12.4); NEUTROPHILS ABSOLUTE AUTO 9.51 K/mm3 (1.96-9.15); NEUTROPHILS PERCENT AUTO 79 % (41-73); Platelet Count 135 K/mm3 (150-400); RDW Coefficient Variation 14.7 % (11.7-14.2); Red Blood Cell Count 4.04 M/mm3 (4.30-5.90); White Blood Cell Count 11.97 K/mm3 (4.00-11.30)
[2021-01-17 18:08] LABS: Troponin I <0.015 ng/mL (0.000-0.040)
[2021-01-17 18:12] LABS: Alanine Aminotransfer (ALT/SGP 22 U/L (12-78); Albumin/Globulin Ratio 0.7 (0.8-1.8); Alk Phos 113 U/L (50-136); Anion Gap 11 mmol/L (6-16); Aspartate Aminotrans (AST/SGOT 11 U/L (12-37); Bilirubin, Total 0.3 mg/dL (0.1-1.0); Blood Urea Nitrogen 68 mg/dL (8-24); Bun/Creatinine Ratio 5.8 (12.0-20.0); CO2, Blood 27 mmol/L (21-32); Chloride, Blood 97 mmol/L (98-108); Globulin, Blood 4.1 g/dL (2.2-4.0); Glomerular Filtration Rate 4 (60-); Glucose, Blood 285 mg/dL (70-99); Potassium, Blood 4.1 mmol/L (3.5-5.5); Sodium, Blood 135 mmol/L (136-145); Total Protein, Blood 7.1 g/dL (6.4-8.2)
== END 2021-01-17 19:37 | disposition home or self-care (01) ==
LOC: ER 16:04
PROVIDERS: Physician Assistant
DX: I48.91 Unspecified atrial fibrillation (principal); I49.3 Ventricular premature depolarization; E11.22 Type 2 diabetes mellitus with diabetic chronic kidney disease; I12.0 Hypertensive chronic kidney disease with stage 5 chronic kidney disease or end stage renal disease; N18.6 End stage renal disease; F17.210 Nicotine dependence, cigarettes, uncomplicated; Z99.2 Dependence on renal dialysis; Z79.899 Other long term (current) drug therapy
CPT/HCPCS: 36415; 80053; 83735; 84484; 85025; 93005; 93010; 99284-25

== ENCOUNTER 2021-02-10 11:28 | Emergency (ER) | payer MEDICARE, BC ==
[~2021-02-10] VITALS: Ht 188 cm; Wt 136.1 kg
[2021-02-10 12:27] LABS: BASOPHILS ABSOLUTE AUTO 0.07 K/mm3 (0.00-0.23); BASOPHILS PERCENT AUTO 1 % (0-2); EOSINOPHILS ABSOLUTE AUTO 0.43 K/mm3 (0.00-0.68); EOSINOPHILS PERCENT AUTO 5 % (0-6); Hemoglobin 11.7 g/dL (13.5-17.5); IMMATURE GRAN ABSOLUTE AUTO 0.03 K/mm3 (0.00-0.10); IMMATURE GRAN PERCENT AUTO 0 % (0-1); LYMPHOCYTES ABSOLUTE AUTO 0.89 K/mm3 (0.84-5.20); LYMPHOCYTES PERCENT AUTO 9 % (21-46); MONOCYTES PERCENT AUTO 11 % (4-13); Mean Corpuscular HGB 31.7 pg (26.0-34.0); Mean Corpuscular HGB Conc 32.5 g/dL (31.5-36.5); Mean Corpuscular Volume 98 fL (80-100); Mean Platelet Volume 11.5 fL (9.1-12.4); NEUTROPHILS ABSOLUTE AUTO 7.08 K/mm3 (1.96-9.15); NEUTROPHILS PERCENT AUTO 75 % (41-73); Platelet Count 120 K/mm3 (150-400); RDW Coefficient Variation 14.5 % (11.7-14.2); RDW Standard Deviation 51.6 fL (35.1-46.3); Red Blood Cell Count 3.69 M/mm3 (4.30-5.90)
[2021-02-10] MEDS ORDERED: Mupirocin22 GM TOP (12:45)
== END 2021-02-10 13:15 | disposition home or self-care (01) ==
LOC: ER 11:28
PROVIDERS: Emergency Medicine
DX: S90.222A Contusion of left lesser toe(s) with damage to nail, initial encounter (principal); S80.812A Abrasion, left lower leg, initial encounter; S80.811A Abrasion, right lower leg, initial encounter; J40 Bronchitis, not specified as acute or chronic; W01.10XA Fall on same level from slipping, tripping and stumbling with subsequent striking against unspecified object, initial encounter; E11.22 Type 2 diabetes mellitus with diabetic chronic kidney disease; I12.0 Hypertensive chronic kidney disease with stage 5 chronic kidney disease or end stage renal disease; N18.6 End stage renal disease; Z99.2 Dependence on renal dialysis
CPT/HCPCS: 36415; 71045; 85025; 93005; 93010; 99284-25; A9270

== ENCOUNTER 2021-02-16 22:34 | Emergency (ER) | payer MEDICARE, BC ==
[~2021-02-16] VITALS: Ht 188 cm; Wt 136.1 kg
[~2021-02-16 22:34] MED LIST changes: +Mupirocin22 GM TOP
== END 2021-02-17 00:10 | disposition home or self-care (01) ==
LOC: ER 22:34
DX: L29.8 Other pruritus (principal); I12.9 Hypertensive chronic kidney disease with stage 1 through stage 4 chronic kidney disease, or unspecified chronic kidney disease; E11.22 Type 2 diabetes mellitus with diabetic chronic kidney disease; N18.9 Chronic kidney disease, unspecified; F17.210 Nicotine dependence, cigarettes, uncomplicated; Z79.899 Other long term (current) drug therapy; Z79.4 Long term (current) use of insulin; Z86.718 Personal history of other venous thrombosis and embolism
CPT/HCPCS: 99283; A9270

== ENCOUNTER 2021-03-17 15:23 | Emergency (ER) | payer MEDICARE, BC ==
[~2021-03-17] VITALS: Ht 188 cm; Wt 129.3 kg
[2021-03-17 16:04] LABS: BASOPHILS ABSOLUTE AUTO 0.05 K/mm3 (0.00-0.23); BASOPHILS PERCENT AUTO 0 % (0-2); EOSINOPHILS ABSOLUTE AUTO 0.18 K/mm3 (0.00-0.68); EOSINOPHILS PERCENT AUTO 2 % (0-6); Hematocrit 35.2 % (37.0-53.0); Hemoglobin 11.6 g/dL (13.5-17.5); IMMATURE GRAN ABSOLUTE AUTO 0.05 K/mm3 (0.00-0.10); IMMATURE GRAN PERCENT AUTO 0 % (0-1); LYMPHOCYTES ABSOLUTE AUTO 1.03 K/mm3 (0.84-5.20); LYMPHOCYTES PERCENT AUTO 9 % (21-46); MONOCYTES ABSOLUTE AUTO 1.04 K/mm3 (0.16-1.47); MONOCYTES PERCENT AUTO 9 % (4-13); Mean Corpuscular HGB 32.1 pg (26.0-34.0); Mean Corpuscular Volume 98 fL (80-100); NEUTROPHILS ABSOLUTE AUTO 8.85 K/mm3 (1.96-9.15); NEUTROPHILS PERCENT AUTO 79 % (41-73); Platelet Count 184 K/mm3 (150-400); RDW Coefficient Variation 15.1 % (11.7-14.2); RDW Standard Deviation 54.4 fL (35.1-46.3); Red Blood Cell Count 3.61 M/mm3 (4.30-5.90)
[2021-03-17 16:05] LABS: Calcium, Ionized (POC) 1.14 mmol/L (1.10-1.46); Chloride (POC) 95 mmol/L (98-108); Creatinine (POC) 13.9 mg/dL (0.8-1.3); Glucose (ISTAT POC) 163 mg/dL (70-99); Hemoglobin (POC) 11.6 g/dL (13.5-17.5); Potassium (POC) 5.1 mmol/L (3.5-5.5); Sodium (POC) 130 mmol/L (135-148); Total CO2 (POC) 25 mmol/L (21-32)
[2021-03-17 16:27] LABS: International Normalized Ratio 0.95
[2021-03-17 16:36] LABS: Troponin I 0.028 ng/mL (0.000-0.040)
[2021-03-17 16:39] LABS: Bun/Creatinine Ratio 6.1 (12.0-20.0); Calcium, Blood 9.3 mg/dL (8.5-10.1); Creatinine, Blood 13.5 mg/dL (0.60-1.20); Potassium, Blood 5.1 mmol/L (3.5-5.5)
[2021-03-17 17:07] LABS: Influenza A, PCR NEGATIVE (NEGATIVE); Influenza B, PCR NEGATIVE (NEGATIVE); Resp Syncytial Virus, PCR NEGATIVE (NEGATIVE); SARS-Cov-2 (COVID-19) PCR, MMC NEGATIVE (NEGATIVE)
[2021-03-17] MEDS ORDERED: Cardizem Cd180 MG PO (18:23)
== END 2021-03-17 18:50 | disposition home or self-care (01) ==
LOC: ER 15:23
PROVIDERS: Student in an Organized Health Care Education/Training Program
DX: S91.111A Laceration without foreign body of right great toe without damage to nail, initial encounter (principal); S40.011A Contusion of right shoulder, initial encounter; S90.31XA Contusion of right foot, initial encounter; I95.9 Hypotension, unspecified; R00.1 Bradycardia, unspecified; E87.8 Other disorders of electrolyte and fluid balance, not elsewhere classified; N18.6 End stage renal disease; Z99.2 Dependence on renal dialysis; W01.10XA Fall on same level from slipping, tripping and stumbling with subsequent striking against unspecified object, initial encounter; Z79.899 Other long term (current) drug therapy; Z79.4 Long term (current) use of insulin; I10 Essential (primary) hypertension; E11.40 Type 2 diabetes mellitus with diabetic neuropathy, unspecified; G47.30 Sleep apnea, unspecified; E78.5 Hyperlipidemia, unspecified; I48.91 Unspecified atrial fibrillation; F17.200 Nicotine dependence, unspecified, uncomplicated
CPT/HCPCS: 0241U; 36415; 70450; 71045; 73030; 73630; 80047; 80048; 83605; 83735; 84145; 84484; 85014; 85025; 85610; 85730; 90471; 90714; 93005; 93010; 99285-25; A9270; J7030

== ENCOUNTER 2021-04-19 13:13 | Inpatient (IN) | payer MEDICARE, BC ==
[~2021-04-19] VITALS: Ht 188 cm; Wt 123.4 kg
[~2021-04-19 13:13] MED LIST changes: +Cardizem Cd180 MG PO
[2021-04-19 13:36] LABS: BASOPHILS ABSOLUTE AUTO 0.04 K/mm3 (0.00-0.23); BASOPHILS PERCENT AUTO 0 % (0-2); EOSINOPHILS ABSOLUTE AUTO 0.48 K/mm3 (0.00-0.68); EOSINOPHILS PERCENT AUTO 3 % (0-6); Hematocrit 30.2 % (37.0-53.0); Hemoglobin 9.7 g/dL (13.5-17.5); IMMATURE GRAN ABSOLUTE AUTO 0.12 K/mm3 (0.00-0.10); IMMATURE GRAN PERCENT AUTO 1 % (0-1); LYMPHOCYTES ABSOLUTE AUTO 1.57 K/mm3 (0.84-5.20); LYMPHOCYTES PERCENT AUTO 10 % (21-46); MONOCYTES ABSOLUTE AUTO 1.61 K/mm3 (0.16-1.47); MONOCYTES PERCENT AUTO 10 % (4-13); Mean Corpuscular HGB 31.7 pg (26.0-34.0); Mean Corpuscular HGB Conc 32.1 g/dL (31.5-36.5); Mean Corpuscular Volume 99 fL (80-100); NEUTROPHILS ABSOLUTE AUTO 12.75 K/mm3 (1.96-9.15); NEUTROPHILS PERCENT AUTO 77 % (41-73); Platelet Count 193 K/mm3 (150-400); RDW Coefficient Variation 13.9 % (11.7-14.2); RDW Standard Deviation 50.3 fL (35.1-46.3); Red Blood Cell Count 3.06 M/mm3 (4.30-5.90); White Blood Cell Count 16.57 K/mm3 (4.00-11.30)
[2021-04-19 14:10] LABS: Calcium, Ionized (POC) 1.01 mmol/L (1.10-1.46); Chloride (POC) 101 mmol/L (98-108); Glucose (ISTAT POC) 102 mg/dL (70-99); Hemoglobin (POC) 8.5 g/dL (13.5-17.5); Potassium (POC) 7.6 mmol/L (3.5-5.5); Sodium (POC) 132 mmol/L (135-148); Total CO2 (POC) 25 mmol/L (21-32)
[2021-04-19 14:39] LABS: Alanine Aminotransfer (ALT/SGP 22 U/L (12-78); Albumin, Blood 2.6 g/dL (3.4-5.0); Albumin/Globulin Ratio 0.7 (0.8-1.8); Alk Phos 104 U/L (50-136); Anion Gap 13 mmol/L (6-16); Aspartate Aminotrans (AST/SGOT 14 U/L (12-37); Bilirubin, Direct <0.1 mg/dL (0.0-0.3); Bilirubin, Indirect Unable to Calculate mg/dL (0.1-0.7); Bilirubin, Total 0.3 mg/dL (0.1-1.0); Blood Urea Nitrogen 57 mg/dL (8-24); CO2, Blood 24 mmol/L (21-32); Calcium, Blood 9.5 mg/dL (8.5-10.1); Chloride, Blood 99 mmol/L (98-108); Globulin, Blood 3.7 g/dL (2.2-4.0); Glomerular Filtration Rate 4 (60-); Glucose, Blood 46 mg/dL (70-99); Potassium, Blood 4.5 mmol/L (3.5-5.5); Sodium, Blood 136 mmol/L (136-145); Total Protein, Blood 6.3 g/dL (6.4-8.2)
[2021-04-19 15:10] LABS: Influenza A, PCR NEGATIVE (NEGATIVE); Influenza B, PCR NEGATIVE (NEGATIVE); Resp Syncytial Virus, PCR NEGATIVE (NEGATIVE); SARS-Cov-2 (COVID-19) PCR, MMC NEGATIVE (NEGATIVE)
--- NOTE | 2021-04-19 16:45 | NUR ---
ADMIT PT ARRIVED TO ICU 15 FROM EDUCATIONAL PSYCHOLOGY PROFESSOR. TEMP PACER IN PLACE ON L CHEST. CORONARY CARE UNIT NURSE WITH NEARLY 100% CAPTURE. PT WAS LETHARGIC UPON ARRIVAL, CBG CHECKED AND PT WAS 59. 1/2 AMP D50 GIVEN AND PT BECAME ALERT AND ORIENTED. PT THEN DRANK 4 OZ APPLE JUICE. CALLED DR. ROLAND AND RECEIVED OK TO SWITCH PT FROM GLUCOSE LAB DRAWS TO FINGER STICKS EVERY 4 HOURS. ALSO RECEIVED ORDERS TO CONSULT DR. BUSTILLO FOR PERITONEAL DIALYSIS. DR. BUSTILLO NOTIFIED BY MIGEL SIMS RN. WITH DIALYSIS NOTIFIED PER DR. BUSTILLO'S ORDERS.
[2021-04-19 16:46] LABS: Calcium, Blood 9.8 mg/dL (8.5-10.1); Creatinine, Blood 11.5 mg/dL (0.60-1.20); Potassium, Blood 4.3 mmol/L (3.5-5.5)
--- NOTE | 2021-04-19 18:37 | NUR ---
PT CONTINUED TO BECOME HYPOGLYCEMIC AGAIN ABOUT AN HOUR AFTER HE GOT HERE. MORE D50 GIVEN AND ONCE PT WAS MORE ALERT PT DRANK MORE JUICE, BUT THEN HE VOMITTED IT BACK UP. ZOFRAN GIVEN PER MAY. SPOKE WITH DR. BENNETT AND RECEIVED ORDERS FOR MROE D50 AND TO START D5 DRIP. PT'S BLOOD SUGAR CAME UP TO 104, BUT PT'S MENTATION HAS NOT IMPROVED. DR. BENNETT NOTIFIED AND ORDERED STAT ABG. RT NOTIFIED. DR. BENNETT TO THE BEDSIDE.
--- NOTE | 2021-04-19 19:37 | NUR ---
DIALYSIS-PD PT IS CONFUSED AND JERKY. HAS TROUBLE STAYING AWAKE. ANSWER QUESTION APPROPRIATELY ABOUT PD. UNABLE TO GET A CULTURE DUE TO RX HAS NO LAST FILL. WILL TRY TO GET ONE TOMORROW. RX 11 HOURS, 5 EXCHANGES, 2300ML FILL,300 LAST FULL,1 HR 42 MIN DWELL TIME STARTED AT 1910. DUE TO LARGE VOLUME, I PLACED THE DRAIN TUBE TO DRAIN IN THE TOILET. OUR DRAINAGE BAG IS TOO SMALL. SITE CLEAR. CLEANED AND DRESSED. I PUSHED ON HIS ABD, HE DENIES ANY PAIN.
[2021-04-19 19:48] LABS: Base Excess Venous 2.1 mmol/L; Bicarbonate Venous 25.1 mmol/L (24.0-30.0); PCO2 Venous 54.1 mmHg (38-42); PO2 Venous 32.6 mmHg (38-42); pH Blood Venous 7.32 (7.34-7.37)
--- NOTE | 2021-04-20 00:07 | NUR ---
ASSUMED CARE AT 1900 PATIENT IS LETHARGIC, RESPONDS TO VERBAL STIMULI. ORIENTED X3, UNABLE TO TELL ME THE MONTH, AND IS SLOW TO RESPOND. PATIENT OS VERY RESTLESS AND UNABLE TO STOP MOVING, HAS TO BE REMININDED CONSTANTLY THAT HE HAS A TEMP PACEMAKER AND PERITONEAL DIALYSIS. PATIENT CURRENTLY ON CPAP HE USES ONE AT HOME. 02 SATS 99%. PATIENT IS PACED AT 60s. BP VERY LABILE. PATIENT STATES HE NEEDS TO HAVE BM, PLACED ON BEDPAN MULTIPLE TIMES AND NO BM SO FAR. LINEN CHANGE DONE, BRIEF IN PLACE.
[2021-04-20 03:53] LABS: BASOPHILS ABSOLUTE AUTO 0.03 K/mm3 (0.00-0.23); BASOPHILS PERCENT AUTO 0 % (0-2); EOSINOPHILS ABSOLUTE AUTO 0.36 K/mm3 (0.00-0.68); EOSINOPHILS PERCENT AUTO 2 % (0-6); Hematocrit 28.9 % (37.0-53.0); Hemoglobin 9.2 g/dL (13.5-17.5); IMMATURE GRAN PERCENT AUTO 1 % (0-1); LYMPHOCYTES ABSOLUTE AUTO 1.19 K/mm3 (0.84-5.20); LYMPHOCYTES PERCENT AUTO 7 % (21-46); MONOCYTES ABSOLUTE AUTO 1.32 K/mm3 (0.16-1.47); MONOCYTES PERCENT AUTO 8 % (4-13); Mean Corpuscular HGB Conc 31.8 g/dL (31.5-36.5); Mean Corpuscular Volume 97 fL (80-100); Mean Platelet Volume 10.9 fL (9.1-12.4); NEUTROPHILS ABSOLUTE AUTO 13.81 K/mm3 (1.96-9.15); NEUTROPHILS PERCENT AUTO 82 % (41-73); Platelet Count 175 K/mm3 (150-400); RDW Coefficient Variation 13.9 % (11.7-14.2); RDW Standard Deviation 49.5 fL (35.1-46.3); Red Blood Cell Count 2.97 M/mm3 (4.30-5.90); White Blood Cell Count 16.81 K/mm3 (4.00-11.30)
[2021-04-20 04:36] LABS: Albumin, Blood 2.4 g/dL (3.4-5.0); Albumin/Globulin Ratio 0.7 (0.8-1.8); Bilirubin, Total 0.4 mg/dL (0.1-1.0); Bun/Creatinine Ratio 5.2 (12.0-20.0); Calcium, Blood 9.2 mg/dL (8.5-10.1); Creatinine, Blood 11.2 mg/dL (0.60-1.20); Globulin, Blood 3.6 g/dL (2.2-4.0); Phosphorus, Blood 8.2 mg/dL (2.5-4.9); Potassium, Blood 4.7 mmol/L (3.5-5.5)
--- NOTE | 2021-04-20 06:33 | NUR ---
SHIFT SUMMARY PATIENT IS ALERT AND ORIENTED X3 AT START OF SHIFT, ABLE TO STATE PLACE, YEAR SELF, PATIENT NOW ORIENTED X1-2, UNABLE TO STATE YEAR OR PLACE. MORE ALERT THAN START OF SHIFT. 02 SATS >93% ON 2L VIA NC. BP LABILE, PATIENT DOES NOT HOLD STILL AND IS DIFFICULT TO GET CONSISTENT BP READING ON. TEMP PACEMAKER IN PLACE, HR >60 THROUGH THE NIGHT. PACER MAY NOT BE PACING EVERY BEAT, RHYTHM STRIPS IN CHART. PATIENT HAD AN EPISODE OF VOMITING, MEDICATED PER EMAR. BLOOD GLUCOSE STABLE ON D5 INF. PATIENT VERY DIFFICULT TO REDIRECT AND NEEDS CONSTANT REMINDERS THAT HE HAS DIALYSIS GOING AND A TEMP PACEMAKER. PATIENT CONSTANTLY MOVING. PICTURES IN CHART OF WOUNDS.
--- NOTE | 2021-04-20 07:19 | NUR ---
DIALYSIS - PD PT STILL THRASHING AROUND. HAD ONE LEG UP IN THE AIR. BUT HE ANSWERS QUESTIONS APPROPRIATELY. SITE CLEAR. ID [id number], UF [id number] ML. TX NOT COMPLETED PRESCIBED, LAST FILL APPROXIMATELY 160ML SHORT OF PRESCRIBED AMT.
--- NOTE | 2021-04-20 08:47 | NUR ---
LUIS M RN, TERESSA, @ BEDSIDE FOR PD FLUID SAMPLE. SPEC SENT TO LAB BY TERESSA. SPOKE W/ PT'S SPOUSE, RAMÓN, FOR PT UPDATE & FOR FULL MED LIST. SHE REPORTS PT ACTUALLY DOES TAKE MEDS FOR RESTLESS LEG, THOUGH THEY DON'T HELP MUCH, HE IS OFTEN RESTLESS & KICKING HIS LEGS AROUND. WILL CALL YESSI & LEANN SHORTLY FOR FULL MED REC.
[2021-04-20] MEDS ORDERED: PREGABALIN50 MG PO (09:16)
[2021-04-20] MEDS ORDERED: DILTIAZEM 24HR180 M3 PO (09:17)
[2021-04-20] MEDS ORDERED: Rena-Vite Tabl0.8 MG PO (09:19)
[2021-04-20] MEDS ORDERED: OMEPRAZOLE20 M2 PO (09:20)
--- NOTE | 2021-04-20 09:44 | NUR ---
UPDATE: PACER OFF. DR SKINNER @ BEDSIDE FOR AM EVAL. WHILE @ REST, MONITOR INDICATES 100% CAPTURE. FREQUENT PVCs. RATE 70s. PACER TURNED OFF BY BRODY. ORDERS TO TURN PACER BACK ON W/ RATE OF 60 IF HR BEGINS TO TREND DOWN INTO THE 30s. BRODY WILL RETURN IN 1hr TO EVALUATE REMOVING THE TEMP PACER. INSPECTOR MACHINED PARTS AWARE.
[2021-04-20] MEDS ORDERED: ROPINIROLE HCL0.5 MG PO (09:52)
[2021-04-20] MEDS ORDERED: ZOLOFT50 MG PO (09:53)
[2021-04-20] MEDS ORDERED: RENVELA800 MG PO (09:54)
[2021-04-20] MEDS ORDERED: MIDODRINE HCL10 M6 PO (09:57)
[2021-04-20] MEDS ORDERED: HUMALOG KW100 UNIT/1 SQ (09:57)
[2021-04-20] MEDS ORDERED: TRESIBA FL100 UNIT/2 (10:11)
[2021-04-20] MEDS ORDERED: ALUMINUM H320 MG/5 M PO (10:14)
--- NOTE | 2021-04-20 11:19 | NUR ---
I called and spoke with the patient's this morning (Duke Blair [phone]) who lives with the patient in their single story home with two steps to the side enterance of the home. This enterance is the easiest for the patient. He currently uses a four wheeled walker every day, and a CPAP machine. He also has a cane for his use, if needed. Patient was receiving [facility] health services. Patient's works part time, so patient is mainly home alone during the day. Although, his brother lives with them as well and helps provide ADL support if needed. Patient's and daughter help provide transportation, patient no longer drives. Patient's reports he has had no feeling in his hands for a few months and creates a barrier at times. She manages his medication. Their preferred pharmacy is [facility]. There is no preference for a SNF, he has never been to one. The patient is not a .
--- NOTE | 2021-04-20 11:34 | NUR ---
UPDATE: PACER DC'd DR SKINNER @ BEDSIDE. PT CONTINUES TO HAVE FREQUENT PVCs & CONSISTENTLY IN BIGEMINY W/ RATE 60s-70s. BP HYPOTENSIVE @ TIMES, MAPs 55-65. DR SKINNER IS PLEASE W/ PT PROGRESS W/ PACER OFF. TEMP PACER REMOVED BY BRODY, PRESSURE HELD TO INSERTION SITE FOR APPROX 10min, W/ RESULTING HEMOSTASIS. CHG DRESSING PLACED. PT CONTINUES TO BE RESTLESS, FREQUENTLY TURNING IN BED & KICKING LEGS. MENTATION APPEARS TO BE IMPROVING, PT ABLE TO RECALL WHAT MEDS HE TAKES & FOLLOW COMMANDS.
--- NOTE | 2021-04-20 12:27 | NUR ---
UPDATE: HYPOGLYCEMIA & HOME MEDS. PT OBSERVED TO HAVE DEC LOC W/ INC AMS, PICKING @ GOWN & DIFFICULT TO AROUSE. CBG READS 47, PT MEDICATED W/ 1/2amp D50 PER PROTOCOL. RECHECK WAS 79 & PT IS MUCH MORE ALERT & ABLE TO ANSWER QUESTIONS. DR PIZARRO CALLED & UPDATED. DISCUSSED PT's HOME MEDS FOR RLS, BONS TO PLACE ORDERS. ALSO DISCUSSED D5 gtt AND WHETHER TO INC RATE. ORDERS TO KEEP RATE @ 50ml/hr & CONTINUE W/ Q2hr CBGs. PT NO LONGER NPO, REGULAR TRAY ORDERED TO KEEP SUGARS UP -PER BONCarlos. WILL CONTINUE TO REASSESS & REPORT APPROPRIATE.
[2021-04-20 13:43] LABS: Automated BF WBC Count 0.077 K/mm3 (0-999)
[2021-04-20 14:32] LABS: Body Fluid WBC Count 77 /mm3 (0-999)
[2021-04-20 14:34] LABS: RBC Count, Body Fluid 28 /mm3 (0-0)
--- NOTE | 2021-04-20 14:45 | NUR ---
UPDATE: HYPOGLYCEMIA PT CONTINUES TO HAVE EPISODES OF SYMPTOMATIC HYPOGLYCEMIA; CONFUSED, SOMNOLENT. LAST TWO CBGs 41 & 56, REQUIRING PRN D50. PT REFUSES LUNCH. DR PIZARRO UPDATED, ORDERS RECEIVED TO INC D5 gtt TO 75ml/hr. DR PIZARRO TO F/U W/ PT's AUTOMATION TEST ENGINEER.
[2021-04-20] MEDS ORDERED: Calcium Carbon500 MG PO (15:25)
[2021-04-20] MEDS ORDERED: TAMS.4ER PO (15:26)
[2021-04-20] MEDS ORDERED: BRINTELLIX10 MG PO (15:29)
--- NOTE | 2021-04-20 15:30 | NUR ---
UPDATE: RECENT MED Hx FROM SPOUSE. FULL & ACCURATE MED LIST RECEIVED FROM [facility] & HOME MEDS RECONCILED. SPOUSE CALLED & UPDATED ON PT PROGRESSION. SPOUSE STS THE PT HAS BEEN HAVING EPISODES OF HYPOGLYCEMIA OVER THE PAST FEW DAYS W/ CBGs 70s-150s. THE DAY HE WAS ADMITTED, CBGs WERE IN THE 50s W/ HR 30s-40s @ HOME. OVER THE PAST FEW WEEKS, PT HAS HAD A SIGNIFICANT DECREASE IN APETITE & WEIGHT LOSS.
[2021-04-20 16:15] LABS: Total Cell Count, Body Fluid 100
[2021-04-20 16:16] LABS: Appearance, Body Fluid Clear (Clear); Color, Body Fluid No color (None-Yellow)
--- NOTE | 2021-04-20 16:23 | NUR ---
UPDATE: DR SKINNER UPDATED, ECHO & EKG ORDERED. PT CONTINUES TO BE IN BIGEMINY, W/ PVC COUNT IN THE 30s. INTERMITTENT 1-2 BEAT PAUSES. PT GENERALLY ALTERED W/ EPISODES OF UNRESPONSIVENESS, REQUIRING STERNAL RUB TO AROUSE. EPISODES OF HYPOGLYCEMIA ALSO CONTINUE, SEE PREVIOUS NOTATIONS. EKG DONE. DR SKINNER CALLED & UPDATED BY SPORTS BOOK SERVERDOMENIC. ART CRITIC @ BEDSIDE & RESULTS TO DICTATE FURTHER PLAN OF CARE PER DR SKINNER.
[2021-04-20] MEDS ORDERED: GENT15TO TOP (16:43)
[2021-04-20] MEDS ORDERED: CALCITRIOL0.5 MC1 PO (16:47)
[2021-04-20] MEDS ORDERED: ATOR40TA PO (16:52)
--- NOTE | 2021-04-20 18:06 | NUR ---
SHIFT SUMMARY: PT RESTING IN BED W/ EYES CLOSED. RR EVEN & UNLABORED. INTERMITTENT NONPRODUCTIVE COUGH. PT NO LONGER RESTLESS IN BED OR PULLING @ EQUIP. HE CONTINUES TO BE CONFUSED, FOLLOWING SOME COMMANDS & EASILY STARTLED BUT ABLE TO BE REORIENTED W/ VERBAL REDIRECTION. DIALYSIS RNs @ BEDSIDE TO INITIATE OVERNIGHT PD. NO ACUTE CHANGES SINCE PREVIOUS NOTATION. AWAITING ECHO RESULTS. BLE WOUNDS REDRESSED W/ HEEL PROTECTORS & MEPITEL. PT UNABLE TO TOLERATE & PULLED DRESSINGS OFF. WOUNDS LEFT STOCK PREPARATION SUPERVISOR.
--- NOTE | 2021-04-20 18:48 | NUR ---
TO ICU 15 FOR EVENING PD TX. PT LYING IN BED, QUIET BUT RESTLESS.COOPERATIVE BUT MILDLY CONFUSED. ORIENTED TO PERSON AND PLACE. SITE WNL, SKIN CLEANED OF ADHESIVE, PT RESTLESS. REPORT TO RN.
--- NOTE | 2021-04-20 19:00 | NUR ---
UPDATE: PD CATH PULLED PT AGAIN PULLING @ VS EQUIP., CONFUSED. PT REMOVED PD TUBING. DIALYSIS RNs @ BEDSIDE REPLACING TUBING & MANAGING SITE. PD REINSTATED.
--- NOTE | 2021-04-20 19:49 | NUR ---
ADDEMDUM TO EARLIER ASSESSMENT: 1899 PT DISCONNECTED HIS CATHETER AND LINE WAS CONTAMINATED. PD LINE CAPPED WITH STERIL CAP. TX RESTARTED WITH NEW FLUID AND TUBING. SAME RX. LINE SECURED WITH COBAN AND RN EDUCATED ON WHAT TO DO IF DISCONNECT HAPPENS AGAIN. PT PUT IN SOFT RESTRAINTS. CONTINUES CONFUSED AND WANTING TO TOUCH PD LINES. CALL TO RICHIE GUZMAN RN TO UPDATE FOR TOMORROW. WILL BE AVAILABLE TO ICU STAFF THROUGHOUT THE NIGHT. DOUGLAS
--- NOTE | 2021-04-20 20:53 | NUR ---
ASSUMED CARE AT 1900 PATIENT IS LETHARGIC BUT OPENS EYES SPONTANEOUSLY. ORIENTED TIMES SELF AND THAT HE IS IN THE HOSPITAL, UNABLE TO STATE WHICH HOSPITAL, YEAR, MONTH OR CITY. NEEDS REORIENTED FREQUENTLY. 02 SATS >93% ON 2L VIA NC, NOW ON CPAP TO SLEEP, SATS 100%. HR A. FIB WITH BIGEMINY, EPISODES OF BRADYCARDIA DOWN TO THE UPPER 40s. BP LABILE AT TIMES, MAP REMIANS >60. PATIENT CURRENTLY RECIEVING PERITONEAL DIALYSIS. AT START OF SHIFT PATIENT UNHOOKED HIS DIALYSIS WHILE IT WAS GOING, PLACED IN RESTRAINTS FOR SAFETY. MEPILEX APPLIED TO COCCYX. HEEL PROTECTORS APPLIED TO BLE. CLEAN GOWN AND LINEN CHANGED, PATIENT TURNED.
[2021-04-21 04:02] LABS: BASOPHILS ABSOLUTE AUTO 0.02 K/mm3 (0.00-0.23); BASOPHILS PERCENT AUTO 0 % (0-2); EOSINOPHILS ABSOLUTE AUTO 0.32 K/mm3 (0.00-0.68); EOSINOPHILS PERCENT AUTO 3 % (0-6); Hematocrit 27.4 % (37.0-53.0); Hemoglobin 8.8 g/dL (13.5-17.5); IMMATURE GRAN ABSOLUTE AUTO 0.05 K/mm3 (0.00-0.10); IMMATURE GRAN PERCENT AUTO 0 % (0-1); LYMPHOCYTES ABSOLUTE AUTO 1.18 K/mm3 (0.84-5.20); LYMPHOCYTES PERCENT AUTO 10 % (21-46); MONOCYTES ABSOLUTE AUTO 1.01 K/mm3 (0.16-1.47); MONOCYTES PERCENT AUTO 8 % (4-13); Mean Corpuscular HGB 31.2 pg (26.0-34.0); Mean Corpuscular HGB Conc 32.1 g/dL (31.5-36.5); Mean Corpuscular Volume 97 fL (80-100); Mean Platelet Volume 11.2 fL (9.1-12.4); NEUTROPHILS ABSOLUTE AUTO 9.83 K/mm3 (1.96-9.15); NEUTROPHILS PERCENT AUTO 79 % (41-73); Platelet Count 137 K/mm3 (150-400); RDW Coefficient Variation 13.8 % (11.7-14.2); Red Blood Cell Count 2.82 M/mm3 (4.30-5.90); White Blood Cell Count 12.41 K/mm3 (4.00-11.30)
[2021-04-21 04:42] LABS: Albumin, Blood 2.3 g/dL (3.4-5.0); Albumin/Globulin Ratio 0.6 (0.8-1.8); Bilirubin, Total 0.3 mg/dL (0.1-1.0); Bun/Creatinine Ratio 4.8 (12.0-20.0); Creatinine, Blood 11.8 mg/dL (0.60-1.20); Globulin, Blood 3.7 g/dL (2.2-4.0); Phosphorus, Blood 8.3 mg/dL (2.5-4.9); Potassium, Blood 4.3 mmol/L (3.5-5.5)
--- NOTE | 2021-04-21 06:01 | NUR ---
SHIFT SUMMARY PATIENT CONFUSED AND ORIENTED TO SELF ONLY AT START OF SHIFT, NOW ABLE TO STATE YEAR, MONTH, CITY, AND SELF. FOLLOWS COMMANDS BETTER AND EASIY REDIRECTED WHEN NEEDED. PATIENT WORE CPAP FOR ABOUT AN HOUR WHILE SLEEPING, HAS BEEN AWAKE MOSTTHE NIGHT ON 2L VIA NC, 02 SATS 95%. HR A.FIB 70s-80s, WITH BIGEMINY. BP STABLE WITH MAP >60. PD ONGOING THROUGH THE NIGHT, NO ISSUES. D10 REMIANS INF, CBG THIS AM ABOVE 100 AND STABLE THROUGHT THE NIGHT. PATIENT REFUSES REPOSITIONING AND IS ABLE TO REPOSITION HIMSELF, BOOSTED IN BED A COUPLE TIMES THROUGH THE NIGHT. MEPILEX ON COCCYX. PATIENT KICKS OFF HEEL PROTECTORS. CALL LIGHT IN REACH.
--- NOTE | 2021-04-21 07:42 | NUR ---
PATIENT IN BED / AWAKE / QUESTIONABLE ORIENT. OVERNIGHT CCPD COMPLETE ORDERED. PT DISCONNECTED AND CAPPED. CYCLER STRIPPED AND CLEANED. DR BUSTILLO CONSULTED VIA PHONE FOR NEW ORDERS/ PLAN OF CARE.
--- NOTE | 2021-04-21 08:44 | NUR ---
[place] of Care: Care assumed at 0700hr. Patient alert and oriented to self, place, reason for admission. Intermittent confusion r/t current date/time. Denies pain, discomfort, SOB, or dyspnea. VSS, spO2-96% on RA. Heart rhythm shows Afibb, with frequent PVC's, rate 70's-80's. BP stable. Peritoneal dialysis finished shortly before shift change. Jules GRIDER (dialysis), to room shortly after shift change to disconnect catheter. Peritoneal site and catheter C/D/I. Power-glide to ANABELLE patent and intact, infusing without difficulty. D10% infusing at 75ml/hr, blood glucose stable in low 100's. Will assess glucose q2-4hr. Calm and cooperative with staff. Will continue to monitor.
--- NOTE | 2021-04-21 10:02 | NUR ---
ASSUMPTION OF CARE: ASSUMED CARE AT 0700; PATIENT SEEMED TO BE RESTLESS BUT HAD NO COMPLAINTS OF PAIN OR SOB. CONNECTED TO PERITONEAL DIALYSIS BUT WAS DISCONNECTED BY BAG ADJUSTER SHORTLY AFTER ASSUMING CARE OF PATIENT. VSS; PATIENT IS IN AFIB WITH FREQUENT PVCs AT A RATE OF 70-80BPM. O2 SAT 96% ON RA. PATIENT IS RECEIVING D10W FOR PREVIOUS LOW BLOOD SUGARS. MOST RECENT CBG AT 0730 WAS 114. WILL CONTINUE TO MONITOR BLOOD SUGARS Q2-4HR.
--- NOTE | 2021-04-21 11:58 | NUR ---
DR. MAIN SPOKE WITH REGARDING PATIENTS SODIUM AND BLOOD SUGAR. PRIMARY RN, DOMENIC, GIVEN ORDER TO SWITCH PATIENT TO D51/2NS AND RUN AT THE SAME RATE OF 75ML/HR. WILL CONTINUE TO MONITOR BLOOD GLUCOSE Q2-4HR. PATIENT WAS BLADDER SCANNED AND READ AT 100-140ML. LASIX WAS GIVEN.
--- NOTE | 2021-04-21 16:57 | NUR ---
Shift Summary: Patient remains stable throughout shift. Sleeping most of shift, but responds to verbal stimuli, oriented x4. Continues to deny pain, discomfort, SOB. Blood sugars remains in 90's, after changing fluids from d10% to d5 1/2NS (see previous note). Amount of PVC's increased throughout the morning and into the afternoon, over 30/min at times. Patient also had x2-3 pauses up to 1.7sec. BP remained stable. Call then placed to Dr. Holley (approx 1400) to report patient's rhythm. Dr. Holley reported to patient's room shortly after phone call. Received plan to take patient to labor economics teacher for angiogram tomorrow 03/22. Also informed that Dr. Holley not concerned about the high amount of PVC's as long as patient is asymptomatic and BP remains stable. Pauses also ok unless greater than 3sec. Patient remains stable, will continue to monitor.
--- NOTE | 2021-04-21 18:38 | NUR ---
PATIENT AWAKE / ALERT / SOMEWHAT BLUNTED AFFECT. DINNER TRAY UNTOUCHED ON OVERBED TABLE. CYCLER STRUNG, PRIMED AND PROGRAMMED PER RX. EXIT SITE CARE DONE. EXIT CLEANSED WITH EXCEPT AND NEW STERILE DRESSING APPLIED. WHILE CYCLER PRIMING, PT WAS ASSISTED WITH SEVERAL BITES OF DINNER. PT SOON BECAME NAUSEATED AND VOMITED IN WASTE BASKET. PT ASSISTED WITH WARM WASHCLOTHS AND WATER TO RINSE MOUTH. DIAGNOSTIC SALES SPECIALIST NOTIFIED OF EMISIS. WHEN DIAGNOSTIC SALES SPECIALIST ASSESSED PT HE WAS NO LONGER NAUSEATED AND REPORTED HIS STOMACH WAS SETTLED AT THAT TIME. WHEN PRIME COMPLETE, PT WAS AESEPTICALLY CONNECTED AND THERPY STARTED. THERAPY MONITORED THROUGH INITIAL DRAIN AND START OF FILL #1. NO COMPLAINT OR SIGN OF DISCOMFORT NOTED. ICU STAFF AWARE OF OVERNIGHT THERAPY IN PROGRESS. PT COMFORTABLE IN BED. OF DISCOMFORT
--- NOTE | 2021-04-21 19:33 | NUR ---
ASSUMED CARE PATIENT IS ALERT AND ORIENTED X4, SLOW TO RESPOND AT TIMES. FOLLOWING COMMANDS AND COOPERATIVE WITH CARE. 02 SATS 98% ON RA WHILE AWAKE. CPAP CURRENTLY ON WHILE SLEEPING. LUNGS CLEAR TO DIMINISHED. HR A.FIB WITH MANY PVCs PER REPORT DR. SKINNER IS AWARE. BP STABLE. BLOOD GLUCOSE CHECKED AT START OF SHIFT. PATIENT CURRENTLY RECIEVING PD. WOUNDS ON BLE OPEN TO AIR. MEPILEX ON COCCYX. PATIENT IS ABLE TO REPOSITION SELF. CALL LIGHT IN REACH.
[2021-04-22 04:31] LABS: BASOPHILS ABSOLUTE AUTO 0.03 K/mm3 (0.00-0.23); BASOPHILS PERCENT AUTO 0 % (0-2); EOSINOPHILS ABSOLUTE AUTO 0.35 K/mm3 (0.00-0.68); EOSINOPHILS PERCENT AUTO 3 % (0-6); Hematocrit 27.2 % (37.0-53.0); Hemoglobin 8.9 g/dL (13.5-17.5); IMMATURE GRAN ABSOLUTE AUTO 0.06 K/mm3 (0.00-0.10); IMMATURE GRAN PERCENT AUTO 1 % (0-1); LYMPHOCYTES ABSOLUTE AUTO 1.12 K/mm3 (0.84-5.20); LYMPHOCYTES PERCENT AUTO 11 % (21-46); MONOCYTES ABSOLUTE AUTO 1.04 K/mm3 (0.16-1.47); MONOCYTES PERCENT AUTO 10 % (4-13); Mean Corpuscular HGB 31.2 pg (26.0-34.0); Mean Corpuscular HGB Conc 32.7 g/dL (31.5-36.5); Mean Corpuscular Volume 95 fL (80-100); Mean Platelet Volume 10.6 fL (9.1-12.4); NEUTROPHILS ABSOLUTE AUTO 7.87 K/mm3 (1.96-9.15); NEUTROPHILS PERCENT AUTO 75 % (41-73); Platelet Count 133 K/mm3 (150-400); RDW Coefficient Variation 13.7 % (11.7-14.2); RDW Standard Deviation 47.1 fL (35.1-46.3); Red Blood Cell Count 2.85 M/mm3 (4.30-5.90); White Blood Cell Count 10.47 K/mm3 (4.00-11.30)
--- NOTE | 2021-04-22 05:26 | NUR ---
SHIFT SUMMARY PATIENT IS ALERT AND ORIENTED THROUGH THE NIGHT. SLOW TO RESPOND TO QUESTIONS AND EASILY STARTLED. 02 SATS >95% ON CPAP WHILE SLEEPING. HR A.FIB WITH PVCs 50s-70s, SOME PAUSES LESS THAN THREE SECONDS THROUGH THE NIGHT. BP STABLE. PATIENT RECIEVING PD THROUGH THE NIGHT. NPO AFTER MIDNIGHT. PATIENT ABLE TO REPOSITION SELF IN BED, HELPED BOOST PATIENT IN BED MULTIPLE TIMES. BLOOD GLUCOSE STABLE THROUGH THE NIGHT WITH D5 1/2NS INF. CALL LIGHT IN REACH.
[2021-04-22 05:57] LABS: Albumin, Blood 2.2 g/dL (3.4-5.0); Albumin/Globulin Ratio 0.6 (0.8-1.8); Bilirubin, Total 0.5 mg/dL (0.1-1.0); Calcium, Blood 8.7 mg/dL (8.5-10.1); Globulin, Blood 3.6 g/dL (2.2-4.0); Total Protein, Blood 5.8 g/dL (6.4-8.2)
[2021-04-22 05:59] LABS: Bun/Creatinine Ratio 4.4 (12.0-20.0); Creatinine, Blood 12.2 mg/dL (0.60-1.20)
--- NOTE | 2021-04-22 07:07 | NUR ---
ASSUME CARE: I have assumed care of pt at this time. Pt is awake and alert; PD just completed.
--- NOTE | 2021-04-22 07:40 | NUR ---
PT AWAKE / RESING IN BED UPON ENCOUNTER THIS AM. OVERNIGHT CCPD COMPLETED ORDERED. PT AESEPTICALLY DISCONNECTED AND CAPPED. CYCLER STRIPPED AND CLEANED. DR BUSTILLO CONSULTED VIA PHONE FOR NEW ORDERS / PLAN OF CARE. NEW ORDERS RECEIVED FOR ADDITIONAL EXCHANGE AND INCREASED DWELL VOLUME TO 2600/FILL.
--- NOTE | 2021-04-22 08:15 | NUR ---
SENIOR ANDROID DEVELOPER: Pt transferred to concrete mixing plant laborer in hospital bed by RN.
--- NOTE | 2021-04-22 09:27 | NUR ---
RETURN: Pt returned from greenskeeper laborer with TR band in place to maintain hemostasis. Distal perfusion intact.
--- NOTE | 2021-04-22 15:01 | NUR ---
UPDATE: This RN spoke with Dr. Holley and Dr. Borden regarding follow up ECHO; will cancel ECHO per provider.
--- NOTE | 2021-04-22 15:16 | NUR ---
PROVIDER UPDATE: Pt complaining of sharp, 8, right sided chest pain when he inhales. Dr Holley called and notified. Will obtain EKG.
--- NOTE | 2021-04-22 18:37 | NUR ---
PATIENT AWAKE AND ALERT THIS EVENING. CONVERSANT AND ABLE TO EAT DINNER WITHOUT NAUSEA. CYCLER STRUNG, PRIMED AND PROGRAMMED PER RX. EXIT SITE CARE DONE. NEW STERILE DRESSING APPLIED. PT CONNECTED AND THERAPY STARTED WHEN PRIME COMPLETE. PT MONITORED THROUGH INITIAL DRAIN AND START OF FILL #1 FOR ANY SIGNS OF DISCOMFORT. ICU STAFF AWARE ON OVERNIGHT THERAPY IN PROGRESS.
--- NOTE | 2021-04-22 18:46 | NUR ---
SHIFT SUMMARY: AM dose of midodrine held this morning due to elevated BP. Pt to labor operator and returned with TR band in place. TR band was removed after two hours as there was no recent ACT in chart. There were no complications with removal; arterial insertion site is clean, dry, and dressed with occlusive dressing. He transferred to chair with assistance. Medium sized liquid stool today. Foam dressing changed on coccyx; small, pencil eraser sized wound cleaned with water. Foam dressings applied to skin tears on bilateral shins as well.
--- NOTE | 2021-04-22 19:57 | NUR ---
ASSUMED CARE PATIENT LYING IN BED AWAKE. PERITONEAL DIALYSIS IN PROGRESS TO RT ABD. SPO2 MID TO HIGH 90'S ON ROOM AIR AND HR 60'S-90'S; BP STABLE SBP 120'S-130'S WITH MAPS GREATER THAN 65. WATER CUP AND CELL PHONE SITTING ON BEDSIDE TABLE. CPAP MACHINE IN ROOM BUT NOT RUNNING AT THIS TIME. PATIENT HAS MULTIPLE CLOVER DRESSINGS TO CARISSA LEGS WITH OPEN BLEEDING SORES UNDERNEATH. PG TO ANABELLE AND 20G TO RT AC NOT INFUSING MEDICATIONS AT THIS TIME. BEDSIDE REPORT COMPLETED WITH MARIIA GRIDER.
--- NOTE | 2021-04-22 22:58 | NUR ---
TRANSCUTANEOUS PACING PATIENT HAS AN INCREASE IN BRADYCARDIA EPISODES WITH RATE DROPPING INTO THE 30'S-40'S WITH POOR PERFUSION AND LENGTHENING PAUSES. TRANSCUTANEOUS PACING PADS PLACED ON PATIENT AND ZOLL SET AT RATE 36 W/ mA 8 AT THIS TIME.
--- NOTE | 2021-04-22 23:28 | NUR ---
SETTINGS ADJUSTED-EXTERNAL PACER RATE INCREASED FROM 36 TO 40; mA REMAIN @ 8. DR. SKINNER UPDATED ON PATIENT CONDITION AND INITIATION OF TRANSCUTANEOUS PACING. NO OTHER ORDERS GIVEN.
--- NOTE | 2021-04-22 23:41 | NUR ---
SETTING ADJUST-EXTERNAL PACER PACING CAPTURE NOT CONSISTANT; mA INCREASED FROM 8 TO 10. RATE STILL AT 40 BPM.
[2021-04-23 04:36] LABS: BASOPHILS ABSOLUTE AUTO 0.05 K/mm3 (0.00-0.23); BASOPHILS PERCENT AUTO 0 % (0-2); EOSINOPHILS ABSOLUTE AUTO 0.42 K/mm3 (0.00-0.68); EOSINOPHILS PERCENT AUTO 4 % (0-6); Hematocrit 26.9 % (37.0-53.0); Hemoglobin 8.9 g/dL (13.5-17.5); IMMATURE GRAN ABSOLUTE AUTO 0.06 K/mm3 (0.00-0.10); IMMATURE GRAN PERCENT AUTO 1 % (0-1); LYMPHOCYTES ABSOLUTE AUTO 1.19 K/mm3 (0.84-5.20); LYMPHOCYTES PERCENT AUTO 11 % (21-46); MONOCYTES ABSOLUTE AUTO 1.16 K/mm3 (0.16-1.47); MONOCYTES PERCENT AUTO 10 % (4-13); Mean Corpuscular HGB 31.7 pg (26.0-34.0); Mean Corpuscular HGB Conc 33.1 g/dL (31.5-36.5); Mean Corpuscular Volume 96 fL (80-100); Mean Platelet Volume 11.1 fL (9.1-12.4); NEUTROPHILS ABSOLUTE AUTO 8.42 K/mm3 (1.96-9.15); NEUTROPHILS PERCENT AUTO 75 % (41-73); Platelet Count 157 K/mm3 (150-400); RDW Coefficient Variation 13.7 % (11.7-14.2); RDW Standard Deviation 47.8 fL (35.1-46.3); Red Blood Cell Count 2.81 M/mm3 (4.30-5.90)
--- NOTE | 2021-04-23 04:45 | NUR ---
SETTING ADJUST-EXTERNAL PACER RATE INCREASED FROM 40BPM TO 50BPM; mA STILL @ 10.
--- NOTE | 2021-04-23 05:43 | NUR ---
DR. SKINNER UPDATE/SETTING ADJUST DR. SKINNER CALLED AND UPDATE ON PATIENT CONDITION GIVEN. ORDERS RECIEVED TO TURN RATE DOWN TO 40 AWAITING EVALUATION THIS MORNING.
[2021-04-23 05:44] LABS: Albumin, Blood 2.2 g/dL (3.4-5.0); Albumin/Globulin Ratio 0.6 (0.8-1.8); Bilirubin, Total 0.4 mg/dL (0.1-1.0); Calcium, Blood 8.9 mg/dL (8.5-10.1); Globulin, Blood 3.8 g/dL (2.2-4.0); Potassium, Blood 3.7 mmol/L (3.5-5.5)
[2021-04-23 05:45] LABS: Bun/Creatinine Ratio 4.8 (12.0-20.0); Creatinine, Blood 12.2 mg/dL (0.60-1.20)
[2021-04-23 05:47] LABS: Phosphorus, Blood 9.1 mg/dL (2.5-4.9)
--- NOTE | 2021-04-23 06:32 | NUR ---
SHIFT SUMMARY PATIENT REMAINED PACED THROUGHOUT SHIFT, BUT ONCE HE WOKE UP JUST AFTER 0600 HIS RHYTHM DID NOT SHOW ADEQUATE CAPTURING. PACER TURNED OFF AND UNDERLYING RHYTHM SEEN A-FIB WITH FREQUENT PVC'S RATE 60'S-70'S. AWAITING DR. SKINNER RE-EVAL THIS MORINNG. NO MEDICATIONS INF AT THIS TIME. MORNING LABS SHOWED CRITICAL CREATININE OF 12.200 AND PHOS 9.1. CALLED LAB RESULTS TO DR. UBSTILLO WITH NO NEW ORDERS; RECHECK LABS TOMORROW MORNING. NO OTHER MAJOR CHANGES DURING SHIFT.
--- NOTE | 2021-04-23 07:19 | NUR ---
ASSUME CARE: I have assumed care of patient.
--- NOTE | 2021-04-23 08:05 | NUR ---
DIALYSIS PD I HAVEN'T SEEN THE PT FOR 2 DAYS, HE IS SO MUCH MORE ALERT. WHILE I WAS DISCONNECTING THE PD TX, HE WAS GIVING ME INSTRUCTIONS ON HOW TO DO. HE WAS ASKING QUESTIONS ABOUT SOME OF WIRES ON HIM AND APPEARED TO UNDERSTAND THE ANSWERS. ID [id number], UF [id number]. OUTPUT CLEAR. HAD A LOW FLOW ERROR DURING THE NIGHT. THE RN CALLED ME. INSTRUCTED HER TO MOVE THE PT'S POSITION. RESOLVED PROBLEM. TX COMPLETED PRESCRIBED.
--- NOTE | 2021-04-23 16:28 | NUR ---
UPDATE: Dr Muñoz called and updated regarding pt's hypotension. Verbal order for one time dose of 10mg midodrine in aditi of 5mg. He was also notified that amphojel is on back order.
--- NOTE | 2021-04-23 18:57 | NUR ---
DIALYSIS-PD PT IS MUCH MORE ALERT AND ORIENTED. SAME PROGRAM LAST NIGHT. HE HAS THE SAME RN LAST NIGHT. CLEANED AND DRESSED HIS TUBE SITE. IT IS CLEAR AND DRY. HE MADE IT THROUGH ID WITHOUT ANY ALARMS. REPORTED TO HIS RN. HE ASKED SOME APPROPRIATE QUESTION ABOUT THE TX. STARTED AT 1840.
--- NOTE | 2021-04-23 19:34 | NUR ---
SHIFT SUMMARY: front desk monitor with frequent PVCs and pauses again today. BP low after midodrine dose was lowered today; one time 10mg dose obtained. Pt has been alert and oreinted. Dr Holley notified of pt status at 1700 per his request. Case was discussed with Dr Holley and charge master specialist; at this time cardiology plans to follow as outpatient without further inpatient intervention. Dr Borden was consulted and pt transitioned to medical status.
[2021-04-24 04:37] LABS: Hematocrit 27.4 % (37.0-53.0)
[2021-04-24 05:25] LABS: Albumin, Blood 2.2 g/dL (3.4-5.0); Anion Gap 16 mmol/L (6-16); Blood Urea Nitrogen 54 mg/dL (8-24); Bun/Creatinine Ratio 4.5 (12.0-20.0); CO2, Blood 26 mmol/L (21-32); Chloride, Blood 95 mmol/L (98-108); Glomerular Filtration Rate 4 (60-); Glucose, Blood 131 mg/dL (70-99); Phosphorus, Blood 8.8 mg/dL (2.5-4.9); Potassium, Blood 3.4 mmol/L (3.5-5.5); Sodium, Blood 137 mmol/L (136-145)
--- NOTE | 2021-04-24 05:32 | NUR ---
SHIFT SUMMARY PATIENT SLEPT T/O SHIFT. VS REMAINED STABLE WITH HR IN 60'S-80'S AND BP WITH MAPS GREATER THAN 65. NO URINE OUTPUT; DIALYSIS CONTINUED T/O SHIFT. PATIENT IS MORE ORIENTED THIS MORNING UPON WAKING UP AND KNOWS WHERE HE IS NOW. NO OTHER CHANGES DURING SHIFT.
--- NOTE | 2021-04-24 07:18 | NUR ---
ASSUME CARE: I have assumed care of this pt.
--- NOTE | 2021-04-24 11:06 | NUR ---
DIALYSIS-PD 08 DISCONNECTED PT FROM PD PER PROTOCAL. TX COMPLETED PRESCRIBED. UF [id number], ID [id number]. SOLUTION CLEAR. PT ASKED ME SOME QUESTIONS ABOUT PD. HIS QUESTIONS WERE APPROPRATE AND HE SEEMED TO UNDERSTAND THE ANSWERS. NO ALARMS DURING THE NIGHT.
--- NOTE | 2021-04-24 14:38 | NUR ---
DISCHARGE: Discharge, follow up, and medication teaching discussed with patient and his daughter. Pt verbalizes understanding and agreement. He is transported out to private vehicle by nurse via wheelchair.
== END 2021-04-24 14:50 | disposition home or self-care (01) | DRG 260 ==
LOC: ER 13:13 → ICUW 14:24
PROVIDERS: Family Medicine; Internal Medicine; Internal Medicine Nephrology; Student in an Organized Health Care Education/Training Program; ADMIT Family Medicine
PROC: 5A1223Z Performance of Cardiac Pacing, Continuous (ICD-10-PCS; principal; 2021-04-19)
PROC: 02HK3JZ Insertion of Pacemaker Lead into Right Ventricle, Percutaneous Approach (ICD-10-PCS; 2021-04-19)
PROC: B2111ZZ Fluoroscopy of Multiple Coronary Arteries using Low Osmolar Contrast (ICD-10-PCS; 2021-04-22)
PROC: 4A023N7 Measurement of Cardiac Sampling and Pressure, Left Heart, Percutaneous Approach (ICD-10-PCS; 2021-04-22)
DX: I48.19 Other persistent atrial fibrillation (principal); N18.6 End stage renal disease; I13.2 Hypertensive heart and chronic kidney disease with heart failure and with stage 5 chronic kidney disease, or end stage renal disease; E87.0 Hyperosmolality and hypernatremia; R00.1 Bradycardia, unspecified; I50.9 Heart failure, unspecified; D72.829 Elevated white blood cell count, unspecified; E87.5 Hyperkalemia; E83.39 Other disorders of phosphorus metabolism; E66.9 Obesity, unspecified; G47.33 Obstructive sleep apnea (adult) (pediatric); E11.22 Type 2 diabetes mellitus with diabetic chronic kidney disease; E11.40 Type 2 diabetes mellitus with diabetic neuropathy, unspecified; Z20.822 Contact with and (suspected) exposure to COVID-19; I35.0 Nonrheumatic aortic (valve) stenosis; I47.2 Ventricular tachycardia; E11.649 Type 2 diabetes mellitus with hypoglycemia without coma; T38.3X5A Adverse effect of insulin and oral hypoglycemic [antidiabetic] drugs, initial encounter; E11.51 Type 2 diabetes mellitus with diabetic peripheral angiopathy without gangrene; I95.9 Hypotension, unspecified; R91.1 Solitary pulmonary nodule; D63.1 Anemia in chronic kidney disease; I71.2 Thoracic aortic aneurysm, without rupture; E55.9 Vitamin D deficiency, unspecified; I25.10 Atherosclerotic heart disease of native coronary artery without angina pectoris; Z99.89 Dependence on other enabling machines and devices; Z99.2 Dependence on renal dialysis; Z87.891 Personal history of nicotine dependence; Z98.52 Vasectomy status; Z98.890 Other specified postprocedural states; Z79.899 Other long term (current) drug therapy
CPT/HCPCS: 0241U; 33210; 36415; 71045; 76937; 80047; 80048; 80053; 80069; 80076; 82803; 82947; 83605; 83690; 83735; 83880; 84100; 84145; 84484; 85014; 85018; 85025; 87040; 87070; 87075; 87205; 89051; 93005; 93010; 93306; 93454; 94660; 94762; 96374; 96375; 96376; 99152; 99153; 99285-25; A9270; C1751; C1769; C1887; C1894; J0461; J0610; J0881; J1644; J1815; J2250; J2370; J2405; J2543; J3010; J7030; J7042; J7050; J7070; J7799; Q9967

== ENCOUNTER 2021-05-29 11:00 | Inpatient (IN) | payer MEDICARE, BC ==
[~2021-05-29] VITALS: Ht 188 cm; Wt 110.4 kg
[~2021-05-29 11:00] MED LIST changes: +ALUMINUM H320 MG/5 M PO; +BRINTELLIX10 MG PO; +CALCITRIOL0.5 MC1 PO; +Calcium Carbon500 MG PO; +DILTIAZEM 24HR180 M3 PO; +GENT15TO TOP; +HUMALOG KW100 UNIT/1 SQ; +MIDODRINE HCL10 M6 PO; +OMEPRAZOLE20 M2 PO; +PREGABALIN50 MG PO; +RENVELA800 MG PO; +ROPINIROLE HCL0.5 MG PO; +Rena-Vite Tabl0.8 MG PO; +TRESIBA FL100 UNIT/2; +ZOLOFT50 MG PO
[2021-05-29 11:32] LABS: BASOPHILS ABSOLUTE AUTO 0.06 K/mm3 (0.00-0.23); BASOPHILS PERCENT AUTO 0 % (0-2); EOSINOPHILS ABSOLUTE AUTO 0.07 K/mm3 (0.00-0.68); EOSINOPHILS PERCENT AUTO 0 % (0-6); Hematocrit 39.1 % (37.0-53.0); Hemoglobin 13.2 g/dL (13.5-17.5); IMMATURE GRAN ABSOLUTE AUTO 0.09 K/mm3 (0.00-0.10); IMMATURE GRAN PERCENT AUTO 0 % (0-1); LYMPHOCYTES ABSOLUTE AUTO 0.91 K/mm3 (0.84-5.20); LYMPHOCYTES PERCENT AUTO 4 % (21-46); MONOCYTES ABSOLUTE AUTO 1.42 K/mm3 (0.16-1.47); MONOCYTES PERCENT AUTO 7 % (4-13); Mean Corpuscular HGB 30.7 pg (26.0-34.0); Mean Corpuscular HGB Conc 33.8 g/dL (31.5-36.5); Mean Corpuscular Volume 91 fL (80-100); Mean Platelet Volume 11.1 fL (9.1-12.4); NEUTROPHILS ABSOLUTE AUTO 18.82 K/mm3 (1.96-9.15); NEUTROPHILS PERCENT AUTO 88 % (41-73); Platelet Count 223 K/mm3 (150-400); RDW Coefficient Variation 15.1 % (11.7-14.2); RDW Standard Deviation 49.9 fL (35.1-46.3); White Blood Cell Count 21.37 K/mm3 (4.00-11.30)
[2021-05-29 11:51] LABS: Albumin, Blood 3.2 g/dL (3.4-5.0); Albumin/Globulin Ratio 0.7 (0.8-1.8); Bilirubin, Total 0.4 mg/dL (0.1-1.0); Bun/Creatinine Ratio 4.1 (12.0-20.0); Calcium, Blood 10.1 mg/dL (8.5-10.1); Creatinine, Blood 9.68 mg/dL (0.60-1.20); Globulin, Blood 4.5 g/dL (2.2-4.0); Potassium, Blood 3.1 mmol/L (3.5-5.5); Total Protein, Blood 7.7 g/dL (6.4-8.2)
[2021-05-29 12:44] LABS: Influenza A, PCR NEGATIVE (NEGATIVE); Influenza B, PCR NEGATIVE (NEGATIVE); Resp Syncytial Virus, PCR NEGATIVE (NEGATIVE); SARS-Cov-2 (COVID-19) PCR, MMC NEGATIVE (NEGATIVE)
--- NOTE | 2021-05-29 16:40 | NUR ---
DAY SHIFT SUMMARY ER ADMIT TO MED FLOOR D/T SEPSIS. PT IS A PERITONEAL DIALYSIS PT STATING HE LAST HAD PD YESTERDAY. A/O X3 SLIGHTLY CONFUSED AND SLOW TO RESPOND AT TIMES. ORIENTED TO SELF AND SURROUNDING BUT NOT TIME. PT STATES THE YEAR 2011. PT STATES HE HAS LITTLE TO NO URINE OUTPUT. SCATTERED BRUISING PRESENT WITH A BLACKENED AREA AT PT LEFT ELBOW. PT ORIENTED TO ROOM/ SURROUNDINGS/ CALL LIGHT. CALL LIGHT WITHIN REACH.
--- NOTE | 2021-05-30 01:10 | NUR ---
PERITONEAL DIALYSIS PATIENT TO ROOM 328 MED FLOOR WITH C/O WEAKNESS AND SOME CONFUSION OPNGOING FOR THE RECENT PAST. DR BUSTILLO IN ROOM WHEN THIS NURSE ARRIVED. PERITONEAL EFFLUENT SAMPLE OBTAINED FOR CULTURE, GRAM STAIN, CELL COUNT AND DIFFERENTIAL PER DR BUSTILLO'S ORDER. SAMPLE CLEAR / EMELINA AND OBSERVED BY DR BUSTILLO, THEN TRANSPORTED TO LAB. OVERNIGHT CCPD SET UP PER ORDER AND THERAPY STARTED WHEN PRIME COMPLETE. PD CATH EXIT SITE CLEAR, DRY, TIGHT AND NON-TENDER. PT DOES NOT DRESS EXIT SITE PER REGULAR ROUTINE SO DRESSING DEFERRED. CATHETER AND LINE SECURED IN PT'S " PD BELT " TO PREVENT TUGGING AT SITE DURING NIGHT. MED FLOOR STAFF AWARE OF OVERNIGHT CCPD THERAPY IN PROGRESS.
[2021-05-30 04:57] LABS: BASOPHILS ABSOLUTE AUTO 0.06 K/mm3 (0.00-0.23); BASOPHILS PERCENT AUTO 0 % (0-2); EOSINOPHILS ABSOLUTE AUTO 0.12 K/mm3 (0.00-0.68); EOSINOPHILS PERCENT AUTO 1 % (0-6); Hematocrit 36.1 % (37.0-53.0); Hemoglobin 12.4 g/dL (13.5-17.5); IMMATURE GRAN ABSOLUTE AUTO 0.06 K/mm3 (0.00-0.10); IMMATURE GRAN PERCENT AUTO 0 % (0-1); LYMPHOCYTES ABSOLUTE AUTO 1.18 K/mm3 (0.84-5.20); LYMPHOCYTES PERCENT AUTO 6 % (21-46); MONOCYTES ABSOLUTE AUTO 1.65 K/mm3 (0.16-1.47); MONOCYTES PERCENT AUTO 9 % (4-13); Mean Corpuscular HGB 31.3 pg (26.0-34.0); Mean Corpuscular HGB Conc 34.3 g/dL (31.5-36.5); Mean Corpuscular Volume 91 fL (80-100); Mean Platelet Volume 11.5 fL (9.1-12.4); NEUTROPHILS ABSOLUTE AUTO 15.55 K/mm3 (1.96-9.15); NEUTROPHILS PERCENT AUTO 84 % (41-73); Platelet Count 210 K/mm3 (150-400); RDW Coefficient Variation 14.9 % (11.7-14.2); RDW Standard Deviation 49.8 fL (35.1-46.3); Red Blood Cell Count 3.96 M/mm3 (4.30-5.90); White Blood Cell Count 18.62 K/mm3 (4.00-11.30)
--- NOTE | 2021-05-30 05:06 | NUR ---
PT IS AWAKE THIS MORNING. PT HAS BEEN FIDGITY ALL NIGHT, WITH THIS HE ACCIDENTLY SCRAPED HIS LEFT SECOND TOE ON THE EDGE OF THE BED CAUSING IT TO BLEED. PT HAS DIABETIC NERUOPATHY SO HE IS UNABLE TO FEEL SENSATION BELOW THE KNEE. CLEANSED TO WOUND WITH SALINE. NEPHROLOGY CONSULTED DUE TO HX OF PERITONEAL DIALYSIS AND ELEVATED CREATININE. PT RECIEVING PD OF RIGHT NOW AND TOLERATING JUST FINE. OTHERWISE NO ACUTE EVENTS OVERNIGHT. PT BELONGINGS AND CALL LIGHT WITHIN REACH . WILL REQUEST BED MOTOR EQUIPMENT SERGEANT FOR THE MORNING.
[2021-05-30 05:25] LABS: Magnesium, Blood 2.1 mg/dL (1.6-2.4)
[2021-05-30 05:30] LABS: Albumin, Blood 2.8 g/dL (3.4-5.0); Anion Gap 17 mmol/L (6-16); Blood Urea Nitrogen 43 mg/dL (8-24); Bun/Creatinine Ratio 4.2 (12.0-20.0); CO2, Blood 23 mmol/L (21-32); Calcium, Blood 9.4 mg/dL (8.5-10.1); Chloride, Blood 90 mmol/L (98-108); Glomerular Filtration Rate 5 (60-); Glucose, Blood 214 mg/dL (70-99); Phosphorus, Blood 7.8 mg/dL (2.5-4.9); Potassium, Blood 3.4 mmol/L (3.5-5.5); Sodium, Blood 130 mmol/L (136-145)
--- NOTE | 2021-05-30 15:01 | NUR ---
HEADACHE/CHRONIC PAIN 650MG PO TYLENOL GIVEN AT 1359 FOR HEADACHE AND CHRONIC BODY PAIN, PT DENIES RELIEF FROM HEADACHE AND BODY PAIN AT THIS TIME.
--- NOTE | 2021-05-30 15:28 | NUR ---
DIALYSIS-PD COME UP TO CHECK ON PT. PT EXTREMELY RESTLESS. SEEMS SLIGHTLY CONFUSED. KNEW WHO WERE. SITTING UP IN THE RECLINER TRYING TO EAT BREAKFAST. NO DRESSING ON PD SITE. CLEANED AND DRESSED. WENT BACK UP AT 1245 TO DC TX. MOST OF THE DRESSING WAS GONE. REDRESSED AND DC TX PER PROTOCAL . ID [id number], UF [id number] ML SITE CLEAR. FLUID CLEAR.
--- NOTE | 2021-05-30 16:16 | NUR ---
PT TO CT SCAN VIA [facility] FOR HEAD CT
--- NOTE | 2021-05-30 16:40 | NUR ---
PT RETURN FROM CAT SCAN, TRANSFERRED BACK TO BED
--- NOTE | 2021-05-30 16:47 | NUR ---
HEADACHE PT GIVEN O.5 MG IV DILAUDID FOR HEADACHE, WITH REASSESSMENT PT REPORTS NO RELIEF
--- NOTE | 2021-05-30 18:19 | NUR ---
PT STARTED THE DAY WITH A "FALL", HE STATED THAT HE "SLID" TO THE FLOOR, THERE WERE NO NEW CONTUSIONS OR ABRAISIONS NOTED AND HE WAS ASSISTED TO BEDSIDE CHAIR WHERE HE ATE SMALL AMOUNT OF BREAKFAST. MD, CURRICULUM DEVELOPMENT SPECIALIST AND FAMILY NOTIFIED OF PT FALL. DR BURNS UP TO SEE PT AND HOME MEDICATIONS ORDERED. PT HAS BEEN C/O OF HEADACHE, SPOUSE SAYS HE HAS HAD IT FOR 3-4 DAYS, CT OF HEAD ORDERED AND COMPLETED, IV DILAUDID ORDERED TYLENOL DID NOT WORK AND PT REPORTED DILAUDID NOT VERY EFFECTIVE EITHER. FAMILY IN AND OUT THIS AFTERNOON, TO RETURN TOMORROW. PD DIALYSIS LAST NIGHT. WILL CONTINUE TO MONITOR AND REPORT TO ONCOMING RN.
[2021-05-30] MEDS ORDERED: ROPI1 PO (18:39)
[2021-05-30] MEDS ORDERED: RENVELA800 MG PO (18:40)
[2021-05-30] MEDS ORDERED: TRESIBA FL100 UNIT/2 (18:41)
--- NOTE | 2021-05-30 19:58 | NUR ---
DIALYSIS-PD PT VERY RESTLESS. MOVING FROM SIDE TO SIDE CONSTANTLY. ASKED HIM TO PUT ON A MASK, HE TRIED UNSUCCESSFULLY. TOTAL VOLUME [id number]. FILL 2500, CYCLES 6, LAST FILL 2000 DWELL, TIME 79 MIN. CHANGED DRESSING 3 TIMES TODAY.
[2021-05-31 05:09] LABS: BASOPHILS ABSOLUTE AUTO 0.04 K/mm3 (0.00-0.23); BASOPHILS PERCENT AUTO 0 % (0-2); EOSINOPHILS ABSOLUTE AUTO 0.09 K/mm3 (0.00-0.68); EOSINOPHILS PERCENT AUTO 0 % (0-6); Hematocrit 36.5 % (37.0-53.0); Hemoglobin 12.3 g/dL (13.5-17.5); IMMATURE GRAN ABSOLUTE AUTO 0.11 K/mm3 (0.00-0.10); IMMATURE GRAN PERCENT AUTO 1 % (0-1); LYMPHOCYTES ABSOLUTE AUTO 0.88 K/mm3 (0.84-5.20); LYMPHOCYTES PERCENT AUTO 4 % (21-46); MONOCYTES ABSOLUTE AUTO 1.39 K/mm3 (0.16-1.47); MONOCYTES PERCENT AUTO 7 % (4-13); Mean Corpuscular HGB 31.1 pg (26.0-34.0); Mean Corpuscular HGB Conc 33.7 g/dL (31.5-36.5); Mean Corpuscular Volume 92 fL (80-100); Mean Platelet Volume 11.1 fL (9.1-12.4); NEUTROPHILS ABSOLUTE AUTO 17.56 K/mm3 (1.96-9.15); NEUTROPHILS PERCENT AUTO 88 % (41-73); NRBC ABSOLUTE 0.02 K/mm3 (0.00-0.02); NRBC Auto 0.1 /100 WBC (0.0-0.2); Platelet Count 196 K/mm3 (150-400); RDW Coefficient Variation 14.9 % (11.7-14.2); RDW Standard Deviation 50.3 fL (35.1-46.3); Red Blood Cell Count 3.95 M/mm3 (4.30-5.90); White Blood Cell Count 20.07 K/mm3 (4.00-11.30)
--- NOTE | 2021-05-31 05:24 | NUR ---
PT HAS BEEN RESTLESS MOST OF THE NIGHT. PT ALERT AND ORIENTED X3 HE CAN BE FORGETFUL AND SLIGHTLY CONFUSED AT TIMES. PT IS ON RA, NOT MONITORED. PT HAS MULTIPLE LOOSE BM'S LAST NIGHT, PT USED BSC WITH A HEAVY X2 ASSIST. PT IS VERY WEAK AND IS BARELY ABLE TO HELP GETTING HIMSELF UP. SWITCHED TO BEDPAN SECONDARY TEACHER DUE TO INCREASED WEAKNESS. PT C/O PAIN GAVE DOSE OF TYLENOL AND DILAUDID (SEE EMAR FOR DETAILS). PT HAS BEEN RECIEVING DIALYSIS OVERNIGHT, TOLERATING WELL. PT CALL LIGHT AND BELONGINGS WITHIN REACH.
[2021-05-31 05:49] LABS: Albumin, Blood 2.6 g/dL (3.4-5.0); Anion Gap 15 mmol/L (6-16); Blood Urea Nitrogen 38 mg/dL (8-24); CO2, Blood 24 mmol/L (21-32); Calcium, Blood 9.6 mg/dL (8.5-10.1); Chloride, Blood 91 mmol/L (98-108); Glucose, Blood 240 mg/dL (70-99); Phosphorus, Blood 5.9 mg/dL (2.5-4.9); Potassium, Blood 3.1 mmol/L (3.5-5.5); Sodium, Blood 130 mmol/L (136-145)
[2021-05-31 05:51] LABS: Glomerular Filtration Rate 6 (60-)
--- NOTE | 2021-05-31 12:24 | NUR ---
DIALYSIS-PD PT STILL REMAINS RESTLESS. DRESSING NEXT TO IMPOSSIBLE TO KEEP ON. LOW FLOW ERROR ON THE MACHINE WHEN I FIRST CAME IN. RESET AND CAME BACK A FEW MINUTES LATER TO TAKE HIM OFF.ID [id number], [id number] BUSTILLO TALKED TO PT AND HE AGREED TO DO PD TONIGHT AND HD TOMORROW. SOLUTION CLEAR. SITE CLEAR.
--- NOTE | 2021-05-31 16:36 | NUR ---
PATIENT AWAKE / RESTLESS UPON ENTERING ROOM. PT IN BED WITHN BED ALARM ACTIVATED DUE TO FALL RISK. CYCLER STRUNG, PRIMED AND PROGRAMMED PER RX. OVERNIGHT THERAPY STARTED WHEN PRIME COMPLETE. PT MONITORED THROUGH INITIAL DRAIN AND START OF FILL #1 FOR PT TOLERANCE. NO COMPLAINTS RECIEVED. EXIT SITE CARE DONE. NEW STERILE DRESSING APPLIED. LINE SECURED IN PT'S PD BELT. SITE IS DRY, TIGHT, NON-TENDER. NO REDNESS NOTED. MED FLOOR STAFF AWARE OF OVERNIGHT THERAPY IN PROGRESS.
--- NOTE | 2021-05-31 17:20 | NUR ---
PT WITH LOW BP THIS AFTERNOON, 86/68 - 92/64, T/C TO DR BURNS TO INFORM, SHE WILL INCREASED MIDODRINE TO 7.5MG TID, MANUAL BP DONE - /50. PT IS NOT SYMPTOMATIC AT THIS TIME. RICHIE FROM DIALYSIS IS STARTING P.D. AT THIS TIME, PT IS TO HAVE HD IN THE AM. WILL CONTINUE TO MONITOR.
--- NOTE | 2021-05-31 21:10 | NUR ---
NURSE NOTE: ZULEIKA GIRON NOTIFIED AT 2100 PT BP 81/38 NON SYMPTOMATIC. PREVIOUS BP AT 1999 CHECKED MANUALLY PRIOR TO O.5 MG DILAUDID WAS 100/70. PER MD NO INTERVENTIONS AT THIS TIME DUE TO PATIENT HAVING FREQUENT HYPOTENSIVE TRENDS AND REMAINING ASYMPTOMATIC. RE-CHECK BP IN 1 HOUR AND INFORM IF HYPOTNESION HAS WORSENED.
[2021-06-01 05:18] LABS: BASOPHILS ABSOLUTE AUTO 0.07 K/mm3 (0.00-0.23); BASOPHILS PERCENT AUTO 0 % (0-2); EOSINOPHILS ABSOLUTE AUTO 0.42 K/mm3 (0.00-0.68); EOSINOPHILS PERCENT AUTO 2 % (0-6); Hematocrit 36.7 % (37.0-53.0); Hemoglobin 12.2 g/dL (13.5-17.5); IMMATURE GRAN ABSOLUTE AUTO 0.09 K/mm3 (0.00-0.10); IMMATURE GRAN PERCENT AUTO 1 % (0-1); LYMPHOCYTES ABSOLUTE AUTO 1.25 K/mm3 (0.84-5.20); LYMPHOCYTES PERCENT AUTO 7 % (21-46); MONOCYTES ABSOLUTE AUTO 1.61 K/mm3 (0.16-1.47); MONOCYTES PERCENT AUTO 9 % (4-13); Mean Corpuscular HGB 30.9 pg (26.0-34.0); Mean Corpuscular HGB Conc 33.2 g/dL (31.5-36.5); Mean Corpuscular Volume 93 fL (80-100); Mean Platelet Volume 11.1 fL (9.1-12.4); NEUTROPHILS PERCENT AUTO 80 % (41-73); Platelet Count 224 K/mm3 (150-400); RDW Coefficient Variation 15.1 % (11.7-14.2); RDW Standard Deviation 51.7 fL (35.1-46.3); Red Blood Cell Count 3.95 M/mm3 (4.30-5.90); White Blood Cell Count 17.44 K/mm3 (4.00-11.30)
--- NOTE | 2021-06-01 05:31 | NUR ---
SHIFT SUMMARY: PARATONEAL DIALYSIS CONTINUED THROUHGOUT THE NIGHT. HYPOTENSION NOTED THROUGHOUT SHIFT-SEE TREND IN CHART. HYPOTENSION RESOLVED THIS MORNING POST ADMINISTRATION 1X 500ML BOLUS AND 2 ADDITIONAL DOSES OF MIDODRINE. PT VERY RESTLESS THROUGHOUT THE NIGHT, MULTIPLE ATTEMPTS TO SIT UP ON SIDE OF BED -PT FORGETS LIMITATIONS. BED ALARM ACTIVATED, BED IN LOWEST POSITION, CALL DELGADO IN REACH. ANURIC- DIALYSIS PT- SMALL BOWEL MOVEMENT THIS SHIFT
[2021-06-01 05:54] LABS: Albumin, Blood 2.6 g/dL (3.4-5.0); Anion Gap 13 mmol/L (6-16); Blood Urea Nitrogen 36 mg/dL (8-24); CO2, Blood 28 mmol/L (21-32); Calcium, Blood 9.5 mg/dL (8.5-10.1); Chloride, Blood 92 mmol/L (98-108); Glucose, Blood 189 mg/dL (70-99); Phosphorus, Blood 6.5 mg/dL (2.5-4.9); Potassium, Blood 3.2 mmol/L (3.5-5.5); Sodium, Blood 133 mmol/L (136-145)
[2021-06-01 05:58] LABS: Bun/Creatinine Ratio 3.8 (12.0-20.0); Creatinine, Blood 9.43 mg/dL (0.60-1.20); Glomerular Filtration Rate 6 (60-)
--- NOTE | 2021-06-01 08:11 | NUR ---
PATIENT IN BED, AWAKE , ALERT. OVERNIGHT CCPD COMPLETED PRESCRIBED. PT AESEPTICALLY DISCONNECTED AND CAPPED. DR BUSTILLO CONSULTED FOR NEW ORDERS / PLANOF CARE. PT SCHEDULED FOR BACK UP HEMODIALYSIS THIS AM.
--- NOTE | 2021-06-01 16:27 | NUR ---
TO ROOM 328 FOR PERITONEAL DIALYSIS TX PER DR DANIEL ORDERS. PT HAVING A BED BATH, VSS. PT VERY WIPED OUT FROM EARLIER HEMO TX. TALKING WITH ON PHONE AND FALLING ASLEEP DURING CONVERSATION. PT TX INITIATED PER DR DANIEL ORDERS. PT TOLERATED WELL. RN APPRISED OF PLAN OF CARE. PT LEFT IN STABLE CONDITION. BEATRICE QUIROS RN
--- NOTE | 2021-06-01 17:38 | NUR ---
SHIFT SUMMARY PT IS ON 2L OF O2 SATTING AT 94%. CPAP HAS BEEN SET UP FOR NIGHT HSIFT. PT IS STILL HAVING SOFT BP AND HAS RECIEVED 10MG OF PRN MIDODRINE DURING HEMODIALYSIS. PT IS CURRENTLY RECIEVING PERITONEAL DIALYSIS FOR THE NEXT 12 HRS. MENTATION HAS IMPROVED SINCE DIALYSIS THIS AM. WAS ABLE TO WORK WITH PT AND OT. WILL CONTINUE TO MONITOR.
--- NOTE | 2021-06-02 01:09 | NUR ---
DIALYSIS NURSE CONTACTED: 8 0048: TERESSA RN- DIALYSIS NURSE CONTACTED DUE TO ALARM READING ON PERITONEAL DIALYSIS MACHINE "CHECK LINES, BAGS REFILLING THE HEATER". REPORTED TO TERESSA GRIDER THAT THE BAG ON TOP OF DIALYSIS MACHINE IS EMPTY, THE DRAWER TO THE MACHINE HAD AN ADDITIONAL BAG EMPTY WELL A FULL BAG NOT INFUSING. TERESSA GRIDER INFORMED SHE WILL BE IN TO ASSESS THE ISSUE AT 0600 AND REQUESTED THIS RN TO TURN THE MACHINE OFF. CLARIFIED IF IT WAS APPROPRIATE FOR PATIENT TO NOT COMPLETE PERITONEAL DIALYSIS TONIGHT THAT WAS SUPPOSED TO RUN UNITL O400. NURSE RESPONDED THAT PATIENT RECEIVED HEMODIALYSIS YESTERDAY AND IT WOULD BE OKAY IF THE PERITONEAL DIALYSIS WAS NOT FULLY COMPLETED TONIGHT. -CHARGE NURSE ON UNIT UPDATED- PERITONEAL DIALYSIS MACHINE TURNED OFF.
--- NOTE | 2021-06-02 05:11 | NUR ---
SHIFT SUMMARY: PT REMAINS A/O X3, ABLE TO REST BETTER TONIGHT DECREASED RESTLESSNESS NOTED. CPAP USED WHILE RESTING, REQUIRED O2 TO BE CONNECTED DUE TO DESSATING OBSERVED ON CONTINUOUS PULSE OX WHILE ASLEEP. PERITONEAL DIALYSIS WAS UNABLE TO BE COMPLETED TONIGHT DUE TO COMPLICATIONS WITH INFUSION/ALERT ON MACHINE (SEE NURSE NOTE). ANURIC DUE TO BEING DIALYSIS PT. BED ALARM ACTIVATED, BED IN LOW POSITION, CALL DELGADO AND BELONGINGS IN REACH. NO PAIN REPORTED THROUGHOUT SHIFT. IMPROVEMENT NOTED WITH PATIENT FOLLOWING COMMANDS DURING THIS SHIFT.
[2021-06-02 05:28] LABS: BASOPHILS ABSOLUTE AUTO 0.09 K/mm3 (0.00-0.23); BASOPHILS PERCENT AUTO 1 % (0-2); EOSINOPHILS ABSOLUTE AUTO 0.69 K/mm3 (0.00-0.68); EOSINOPHILS PERCENT AUTO 4 % (0-6); Hematocrit 37.5 % (37.0-53.0); Hemoglobin 12.1 g/dL (13.5-17.5); IMMATURE GRAN ABSOLUTE AUTO 0.05 K/mm3 (0.00-0.10); IMMATURE GRAN PERCENT AUTO 0 % (0-1); LYMPHOCYTES PERCENT AUTO 6 % (21-46); MONOCYTES ABSOLUTE AUTO 1.63 K/mm3 (0.16-1.47); MONOCYTES PERCENT AUTO 10 % (4-13); Mean Corpuscular HGB 31.1 pg (26.0-34.0); Mean Corpuscular HGB Conc 32.3 g/dL (31.5-36.5); Mean Corpuscular Volume 96 fL (80-100); NEUTROPHILS ABSOLUTE AUTO 12.53 K/mm3 (1.96-9.15); NEUTROPHILS PERCENT AUTO 79 % (41-73); Platelet Count 227 K/mm3 (150-400); RDW Coefficient Variation 15.6 % (11.7-14.2); RDW Standard Deviation 54.4 fL (35.1-46.3); Red Blood Cell Count 3.89 M/mm3 (4.30-5.90); White Blood Cell Count 15.89 K/mm3 (4.00-11.30)
[2021-06-02 05:42] LABS: Albumin, Blood 2.3 g/dL (3.4-5.0); Anion Gap 12 mmol/L (6-16); Blood Urea Nitrogen 28 mg/dL (8-24); Bun/Creatinine Ratio 3.7 (12.0-20.0); CO2, Blood 25 mmol/L (21-32); Calcium, Blood 9.3 mg/dL (8.5-10.1); Chloride, Blood 100 mmol/L (98-108); Creatinine, Blood 7.56 mg/dL (0.60-1.20); Glomerular Filtration Rate 7 (60-); Glucose, Blood 198 mg/dL (70-99); Phosphorus, Blood 4.9 mg/dL (2.5-4.9); Potassium, Blood 3.4 mmol/L (3.5-5.5); Sodium, Blood 137 mmol/L (136-145)
--- NOTE | 2021-06-02 11:57 | NUR ---
TO ROOM 328 TO D/C PERITONEAL DIALYSIS. TREATMENT IS COMPLETE PER DR DANIEL ORDERS. PT TOLERATED WELL. NO COMPLAINTS. PT APPEARS TO NOT BE CONFUSED YESTERDAY. VERBALIZING DESIRE TO GO HOME TODAY. PT IS SCHEDULED TO HAVE BOTH PD AND HEMO PER DR DANIEL ORDERS.LEFT IN STABLE CONDITION. DOUGLAS
[2021-06-02] MEDS ORDERED: VITAMIN D32000 UNI2 PO (16:37)
[2021-06-02] MEDS ORDERED: FISH OIL 1,2001 EAC4 PO (16:37)
[2021-06-02] MEDS ORDERED: B-12500 MC2 PO (16:38)
[2021-06-02] MEDS ORDERED: INSULIN LI100 UNIT/6 SC ×2 (16:50→16:52)
--- NOTE | 2021-06-02 18:15 | NUR ---
DISCHARGE PT LEFT TO HOME WITH FAMILY AT 1700. IV REMOVED AND ALL DISCHARGE INFORMATION GONE OVER WITH AND FAMILY. PHARMACIST WENT OVER MEDICATIONS WITH OVER THE PHONE WELL. ALL BELONGINGS SENT WITH PT FAMILY.
--- NOTE | 2021-06-02 20:29 | NUR ---
REVIEWED PT'S INFORMATION R/T TO PATIENT CALLED WITH QUESTIONS RE MEDS
--- NOTE | 2021-06-03 07:29 | NUR ---
Per Dr. Wendi Ching discharge appropriate. Patient does not oppose discharge. Patient is discharged home with home health order. Gabriela was contacted and notified of discharge. Fred has an outpatient dialysis chair available. Intake is 06/03/21 at 12:40. Patient and [facility] given intake form and notified of intake appointment and chair availability and dialysis schedule: Tue, Wed, and Orly at 3:40. Patient's residence: [address] [place] [address] Date of discharge: 06/02/2021 Date of admission: 05/30/2021 Transportation provided by: Family/ DME Ordered: N/A Follow-ups needed: [facility] will contact patient to schedule hospital follow-up with PCP. Reinforced importance of follow-up appointments. Provider/PCP: Dr. Kirby Stewart MD Specialty: Outpatient follow-up with Dr. Muñoz Confirmed numbers: Patient [phone] [facility] Spouse [phone] Comment: Patient to contact PCP with any questions regarding medication management, social service needs, and if condition worsens go to Urgent Care/ER. No barriers to discharge on this date. Patient has fanily support.
== END 2021-06-02 17:27 | disposition home or self-care (01) | DRG 699 ==
LOC: ER 11:00 → MEDS 11:01
PROVIDERS: Emergency Medicine; Family Medicine; ADMIT Internal Medicine
PROC: 5A1D70Z Performance of Urinary Filtration, Intermittent, Less than 6 Hours Per Day (ICD-10-PCS; principal; 2021-06-01)
DX: E11.21 Type 2 diabetes mellitus with diabetic nephropathy (principal); E87.1 Hypo-osmolality and hyponatremia; E46 Unspecified protein-calorie malnutrition; I48.19 Other persistent atrial fibrillation; R65.10 Systemic inflammatory response syndrome (SIRS) of non-infectious origin without acute organ dysfunction; G93.49 Other encephalopathy; Z20.822 Contact with and (suspected) exposure to COVID-19; N18.6 End stage renal disease; N25.81 Secondary hyperparathyroidism of renal origin; I95.9 Hypotension, unspecified; E87.6 Hypokalemia; E88.09 Other disorders of plasma-protein metabolism, not elsewhere classified; E83.39 Other disorders of phosphorus metabolism; I50.9 Heart failure, unspecified; E78.5 Hyperlipidemia, unspecified; D63.1 Anemia in chronic kidney disease; J44.9 Chronic obstructive pulmonary disease, unspecified; I35.0 Nonrheumatic aortic (valve) stenosis; I25.10 Atherosclerotic heart disease of native coronary artery without angina pectoris; Z68.32 Body mass index [BMI] 32.0-32.9, adult; E11.51 Type 2 diabetes mellitus with diabetic peripheral angiopathy without gangrene; G25.81 Restless legs syndrome; E66.9 Obesity, unspecified; E11.42 Type 2 diabetes mellitus with diabetic polyneuropathy; I73.9 Peripheral vascular disease, unspecified; I11.0 Hypertensive heart disease with heart failure; N40.0 Benign prostatic hyperplasia without lower urinary tract symptoms; G47.33 Obstructive sleep apnea (adult) (pediatric); Z99.2 Dependence on renal dialysis; Z98.890 Other specified postprocedural states; Z95.9 Presence of cardiac and vascular implant and graft, unspecified; Z86.73 Personal history of transient ischemic attack (TIA), and cerebral infarction without residual deficits; Z79.899 Other long term (current) drug therapy; Z86.718 Personal history of other venous thrombosis and embolism; Z95.0 Presence of cardiac pacemaker
CPT/HCPCS: 0241U; 36415; 70450; 71045; 80053; 80069; 82947; 83605; 83735; 85025; 87040; 87070; 87205; 93005; 93010; 94660; 94762; 96365; 96372; 97110; 97116; 97162; 97166; 97530; 97530-CQ; 97535; 99285-25; A9270; G0378; J1170; J1650; J2405; J2543; J7030

== ENCOUNTER 2021-06-11 13:46 | Inpatient (IN) | payer MEDICARE, BC ==
[~2021-06-11] VITALS: Ht 188 cm; Wt 115.2 kg
[~2021-06-11 13:46] MED LIST changes: +B-12500 MC2 PO; +FISH OIL 1,2001 EAC4 PO; +INSULIN LI100 UNIT/6 SC; +ROPI1 PO; +VITAMIN D32000 UNI2 PO
[2021-06-11 15:03] LABS: BASOPHILS PERCENT AUTO 1 % (0-2); EOSINOPHILS ABSOLUTE AUTO 0.38 K/mm3 (0.00-0.68); EOSINOPHILS PERCENT AUTO 2 % (0-6); Hematocrit 34.7 % (37.0-53.0); Hemoglobin 11.5 g/dL (13.5-17.5); IMMATURE GRAN ABSOLUTE AUTO 0.16 K/mm3 (0.00-0.10); IMMATURE GRAN PERCENT AUTO 1 % (0-1); LYMPHOCYTES PERCENT AUTO 7 % (21-46); MONOCYTES PERCENT AUTO 8 % (4-13); Mean Corpuscular HGB 30.7 pg (26.0-34.0); Mean Corpuscular HGB Conc 33.1 g/dL (31.5-36.5); Mean Corpuscular Volume 93 fL (80-100); NEUTROPHILS PERCENT AUTO 82 % (41-73); RDW Coefficient Variation 14.8 % (11.7-14.2); RDW Standard Deviation 50.1 fL (35.1-46.3); Red Blood Cell Count 3.75 M/mm3 (4.30-5.90); White Blood Cell Count 17.94 K/mm3 (4.00-11.30)
[2021-06-11 15:05] LABS: Albumin, Blood 2.2 g/dL (3.4-5.0); Albumin/Globulin Ratio 0.5 (0.8-1.8); BASOPHILS ABSOLUTE AUTO 0.11 K/mm3 (0.00-0.23); Bilirubin, Total 0.3 mg/dL (0.1-1.0); Bun/Creatinine Ratio 5.4 (12.0-20.0); Calcium, Blood 9.6 mg/dL (8.5-10.1); Creatinine, Blood 6.47 mg/dL (0.60-1.20); Globulin, Blood 4.4 g/dL (2.2-4.0); LYMPHOCYTES ABSOLUTE AUTO 1.19 K/mm3 (0.84-5.20); MONOCYTES ABSOLUTE AUTO 1.36 K/mm3 (0.16-1.47); Mean Platelet Volume 11.9 fL (9.1-12.4); NEUTROPHILS ABSOLUTE AUTO 14.92 K/mm3 (1.96-9.15); Potassium, Blood 5.3 mmol/L (3.5-5.5); Total Protein, Blood 6.6 g/dL (6.4-8.2)
[2021-06-11 15:43] LABS: Platelet Count 211 K/mm3 (150-400)
[2021-06-11] MEDS ORDERED: Rena-Vite Tabl0.8 MG PO (17:20)
--- NOTE | 2021-06-11 23:30 | NUR ---
HEMODIALYSIS 1:1 NON-ROUTINE HOURS ORDERED BY DR BUSTILLO FOR PATIENT ADMITTED WITH SEPTIC WOUNDS. PT HAD MISSED ROUTINE CHRONIC HD APPOINTMENT THAT HAD BEEN SCHEDULED EARLIER TODAY. PT RECIEVED CT WITH CONTRAST AFTER ADMISSION, THUS REQUIRING NON-ROUTINE HD FOR CLEARANCE.
--- NOTE | 2021-06-12 02:45 | NUR ---
NURSE NOTE: 2225- IWONA GIRON GAVE VERBAL ORDER CHANGE RATE OF ORDERED IV FLUIDS TO 50ML/HOUR WHILE PATIENT IS RECEIVING DIALYSIS. DISCONTINUE WHEN DIALYSIS IS COMPLETED. 0000- DONALD GIRON GAVE TELEPHONE ORDER FOR CPAP PROTOCOL AND CONTINUOUS PULSE OXIMETRY WHILE CPAP IS IN USE. -PT DECLINED TO USE CPAP- REFUSAL FORM SIGNED AND PLACED IN CHART 0235- DONALD GIRON GAVE TELEPHONE ORDER TO INITIATE BD PROTOCOL FOR RESPIRATORY TO ORDER NEBS TREATMENT.
--- NOTE | 2021-06-12 05:41 | NUR ---
SHIFT SUMMARY: PT A/O X3 DISORIENTED TO TIME, POOR HISTORIAN, FOREGETFULLNESS, DROWSY, RESTLESS MOVEMENT,WEAKNESS. LEFT FINGER WOUND MODERATE PURULENT DRAINAGE- CLEANSED AND COVERED GAUZE AND KERLEX ( NOTIFIED IT APPEARS ABCESS HAS RUPTURED) -SHORTNESS OF BREATH- RESPIRATORY THERAPIST TO ASSESS- 2L O2 APPLIED. -DIALYSIS COMPLETED ON UNIT IN ROOM- PER DIALYSIS NURSE 1.5 L REMOVED. LEFT FOREARM FISTULA & PERITONEAL DIALYSIS CATHETER ABDOMEN (SPLIT GAUZE PLACED AROUND CATHETER SITE) BED ALARM ACTIVATED, BED IN LOW POSITION, CALL DELGADO AND BELONGINGS IN REACH.
[2021-06-12 06:02] LABS: BASOPHILS PERCENT AUTO 1 % (0-2); EOSINOPHILS ABSOLUTE AUTO 0.38 K/mm3 (0.00-0.68); EOSINOPHILS PERCENT AUTO 3 % (0-6); Hematocrit 31.9 % (37.0-53.0); IMMATURE GRAN PERCENT AUTO 1 % (0-1); LYMPHOCYTES ABSOLUTE AUTO 1.08 K/mm3 (0.84-5.20); LYMPHOCYTES PERCENT AUTO 8 % (21-46); MONOCYTES ABSOLUTE AUTO 1.07 K/mm3 (0.16-1.47); MONOCYTES PERCENT AUTO 8 % (4-13); Mean Corpuscular HGB 30.3 pg (26.0-34.0); Mean Corpuscular HGB Conc 31.3 g/dL (31.5-36.5); Mean Corpuscular Volume 97 fL (80-100); Mean Platelet Volume 11.4 fL (9.1-12.4); NEUTROPHILS ABSOLUTE AUTO 11.44 K/mm3 (1.96-9.15); NEUTROPHILS PERCENT AUTO 81 % (41-73); Platelet Count 180 K/mm3 (150-400); RDW Standard Deviation 53.1 fL (35.1-46.3); White Blood Cell Count 14.17 K/mm3 (4.00-11.30)
[2021-06-12 06:22] LABS: Albumin, Blood 1.9 g/dL (3.4-5.0); Albumin/Globulin Ratio 0.5 (0.8-1.8); Bilirubin, Total 0.5 mg/dL (0.1-1.0); Bun/Creatinine Ratio 4.4 (12.0-20.0); Calcium, Blood 9.4 mg/dL (8.5-10.1); Creatinine, Blood 4.99 mg/dL (0.60-1.20); Globulin, Blood 3.8 g/dL (2.2-4.0); Potassium, Blood 4.4 mmol/L (3.5-5.5); Total Protein, Blood 5.7 g/dL (6.4-8.2)
[2021-06-12 09:37] LABS: Influenza A, PCR NEGATIVE (NEGATIVE); Influenza B, PCR NEGATIVE (NEGATIVE); Resp Syncytial Virus, PCR NEGATIVE (NEGATIVE); SARS-Cov-2 (COVID-19) PCR, MMC NEGATIVE (NEGATIVE)
[2021-06-12 14:51] LABS: Vancomycin, Random 15.9 ug/mL
--- NOTE | 2021-06-13 02:42 | NUR ---
EMAIL ENGINEER SUMMARY PATIENT HAD A FAIR SHIFT. HE IS ALERT AND ORIENTED. HIS LEFT FORE ARM WHRE I/D WAS DONE IS STILL BLEEDING AND I APPLIED PRESSURE DRESSING, MORE LIKE A REINFORCEMENT. OXYGEN STILL ON 2L HE DESATURATES ON 1L. HE HAD HIS PAIN MED NEEDED. HIS VITALS ARE STABLE, WILL CONTINUE TO MONITOR HIM.
[2021-06-13 05:39] LABS: Hematocrit 29.8 % (37.0-53.0); Hemoglobin 9.3 g/dL (13.5-17.5)
[2021-06-13 06:00] LABS: Anion Gap 9 mmol/L (6-16); Blood Urea Nitrogen 28 mg/dL (8-24); Bun/Creatinine Ratio 4.5 (12.0-20.0); CO2, Blood 32 mmol/L (21-32); Calcium, Blood 9.5 mg/dL (8.5-10.1); Chloride, Blood 98 mmol/L (98-108); Creatinine, Blood 6.18 mg/dL (0.60-1.20); Glomerular Filtration Rate 9 (60-); Glucose, Blood 110 mg/dL (70-99); Magnesium, Blood 2.2 mg/dL (1.6-2.4); Phosphorus, Blood 4.7 mg/dL (2.5-4.9); Potassium, Blood 4.6 mmol/L (3.5-5.5); Sodium, Blood 139 mmol/L (136-145)
--- NOTE | 2021-06-13 11:00 | NUR ---
Echocardiogram completed.
[2021-06-13 13:44] LABS: Vancomycin, Random 10.1 ug/mL
--- NOTE | 2021-06-14 05:00 | NUR ---
PT IS AWAKE THIS MORNING. PT IS ALERT AND ORIENTED X3-4 CAN BE FORGETFUL AT TIMES, NOT MONITORED, PT CURRENTLY ON RA PT DID USE CPAP FOR MOST OF THE NIGHT AND DID NOT REQURE OXYGEN AFTER REMOVAL. PT DOES HAVE A NON-PRODUCTIVE WET SOUNDING COUGH, RT TREATMENTS IN PLACE. PER MORNING SHIFT RN PT DOES NOT MAKE URINE BUT PT MADE LITTLE INCONTINENT URINE THIS MORNING. PT IS LEFT HEEL WT BEARING ONLY AND IS A HEAVY X2 ASSIST, WOULD RECOMMEND USING BED HELTON IF NEEDING TO USE THE RESTROOM. PT CURRENTLY NPO FOR POSSIBLE PROCEDURE TODAY. OTHERWISE NO ACUTE EVENTS OVENIGHT. PT CALL LIGHT AND BELONGINGS WITHIN REACH.
[2021-06-14 05:33] LABS: Hematocrit 29.4 % (37.0-53.0); Hemoglobin 9.1 g/dL (13.5-17.5)
[2021-06-14 06:09] LABS: Anion Gap 11 mmol/L (6-16); Blood Urea Nitrogen 18 mg/dL (8-24); Bun/Creatinine Ratio 3.8 (12.0-20.0); CO2, Blood 32 mmol/L (21-32); Calcium, Blood 9.3 mg/dL (8.5-10.1); Chloride, Blood 96 mmol/L (98-108); Creatinine, Blood 4.78 mg/dL (0.60-1.20); Glomerular Filtration Rate 12 (60-); Glucose, Blood 109 mg/dL (70-99); Magnesium, Blood 2.2 mg/dL (1.6-2.4); Phosphorus, Blood 3.5 mg/dL (2.5-4.9); Potassium, Blood 4.2 mmol/L (3.5-5.5); Sodium, Blood 139 mmol/L (136-145)
[2021-06-14 14:20] LABS: Vancomycin, Random 18.5 ug/mL
--- NOTE | 2021-06-14 15:00 | NUR ---
ASSUMED CARE AT 13:30 PATIENT ALERT AND ORIENTED X 3-4, FORGETFUL AT TIMES, ON OXYGEN AT 2L/MIN, CPAP AT NIGHT, A NON PRODUCTUVE WEL COUGH, PER REPORT DR. BALDERAS DID A DRESSING CHANGE THIS MORNING. FWD HEEL ONLY L LEG. DENIES PAIN OR DISCOMFORT AT THIS TIME. WILL CONTINUE TO MONITOR.
[2021-06-15 13:07] LABS: Vancomycin, Random 12.9 ug/mL
--- NOTE | 2021-06-15 15:07 | NUR ---
History, Chart, Medications and Allergies reviewed before start of procedure.Patient confirms NPO status and agrees with scheduled surgery. Pre-Op teaching done. Pt verbalizes understanding.
--- NOTE | 2021-06-15 18:13 | NUR ---
SHIFT SUMMARY: PATIENT ALERT AND ORIENTED X 3-4, FORGETFUL AT TIMES, ON RA, DENIES SOB, CPAP AT NIGHT, A NON PRODUCTUVE WEL COUGH NOTED. HAD DIALYSIS THIS MORNING AND L HAND WOUND REVISION WITH DR BALDERAS THIS AFTERNOON. DRESSING TO L HAND DCI. PATIENT DENIES PAIN OR DISCOMFORT. WILL CONTINUE TO MONITOR.
[2021-06-16 05:31] LABS: BASOPHILS ABSOLUTE AUTO 0.11 K/mm3 (0.00-0.23); BASOPHILS PERCENT AUTO 1 % (0-2); EOSINOPHILS ABSOLUTE AUTO 0.48 K/mm3 (0.00-0.68); EOSINOPHILS PERCENT AUTO 5 % (0-6); Hematocrit 26.9 % (37.0-53.0); Hemoglobin 8.3 g/dL (13.5-17.5); IMMATURE GRAN ABSOLUTE AUTO 0.11 K/mm3 (0.00-0.10); IMMATURE GRAN PERCENT AUTO 1 % (0-1); LYMPHOCYTES ABSOLUTE AUTO 1.17 K/mm3 (0.84-5.20); LYMPHOCYTES PERCENT AUTO 11 % (21-46); MONOCYTES ABSOLUTE AUTO 0.81 K/mm3 (0.16-1.47); MONOCYTES PERCENT AUTO 8 % (4-13); Mean Corpuscular HGB 30.3 pg (26.0-34.0); Mean Corpuscular HGB Conc 30.9 g/dL (31.5-36.5); Mean Corpuscular Volume 98 fL (80-100); NEUTROPHILS ABSOLUTE AUTO 7.57 K/mm3 (1.96-9.15); NEUTROPHILS PERCENT AUTO 74 % (41-73); Platelet Count 205 K/mm3 (150-400); RDW Coefficient Variation 15.3 % (11.7-14.2); RDW Standard Deviation 54.3 fL (35.1-46.3); Red Blood Cell Count 2.74 M/mm3 (4.30-5.90); White Blood Cell Count 10.25 K/mm3 (4.00-11.30)
[2021-06-16 05:49] LABS: Anion Gap 8 mmol/L (6-16); Blood Urea Nitrogen 15 mg/dL (8-24); Bun/Creatinine Ratio 2.9 (12.0-20.0); CO2, Blood 33 mmol/L (21-32); Calcium, Blood 9.1 mg/dL (8.5-10.1); Chloride, Blood 99 mmol/L (98-108); Creatinine, Blood 5.21 mg/dL (0.60-1.20); Glomerular Filtration Rate 11 (60-); Glucose, Blood 105 mg/dL (70-99); Phosphorus, Blood 3.8 mg/dL (2.5-4.9); Sodium, Blood 140 mmol/L (136-145)
--- NOTE | 2021-06-16 10:45 | NUR ---
06/16/21 1044 Dilcia Soto VERIFICATION: EDIT CHART.
[2021-06-16] MEDS ORDERED: ATOR40TA PO (11:07)
[2021-06-16] MEDS ORDERED: VISBIOME 112.51 EACH PO (11:26)
[2021-06-16] MEDS ORDERED: AMOCLA875 PO (11:27)
[2021-06-16] MEDS ORDERED: Norco 5-325 Ta1 EACH PO (11:28)
--- NOTE | 2021-06-16 13:07 | NUR ---
SHIFT SUMMARY: PATIENT ALERT AND ORIENTED X 3-4, FORGETFUL AT TIMES, ON RA, DENIES SOB, CPAP AT NIGHT, CONTINUES HAVING A NON PRODUCTUVE WET COUGH. DR BALDERAS VISITED THIS MORNING AND CHANGED DRESSING TO L HAND. PATIENT DENIES PAIN TO L HAND. PATIENT DISCHARGING HOME TODAY WITH HOME HEALTH AND WOUND CARE.
== END 2021-06-16 15:18 | disposition home health service (06) | DRG 853 ==
LOC: ER 13:46 → MEDS 19:23
PROVIDERS: Emergency Medicine; Family Medicine; Internal Medicine Nephrology; Nurse Practitioner Acute Care; Orthopaedic Surgery; Pharmacist; ADMIT Internal Medicine
PROC: 0Y6S0Z3 Detachment at Left 2nd Toe, Low, Open Approach (ICD-10-PCS; principal; 2021-06-13)
PROC: 0L980ZZ Drainage of Left Hand Tendon, Open Approach (ICD-10-PCS; 2021-06-15)
DX: A41.9 Sepsis, unspecified organism (principal); N18.6 End stage renal disease; I13.2 Hypertensive heart and chronic kidney disease with heart failure and with stage 5 chronic kidney disease, or end stage renal disease; E87.1 Hypo-osmolality and hyponatremia; I48.20 Chronic atrial fibrillation, unspecified; M84.478A Pathological fracture, left toe(s), initial encounter for fracture; I50.42 Chronic combined systolic (congestive) and diastolic (congestive) heart failure; M86.072 Acute hematogenous osteomyelitis, left ankle and foot; I82.509 Chronic embolism and thrombosis of unspecified deep veins of unspecified lower extremity; N25.81 Secondary hyperparathyroidism of renal origin; M65.872 Other synovitis and tenosynovitis, left ankle and foot; E11.628 Type 2 diabetes mellitus with other skin complications; L03.012 Cellulitis of left finger; J44.9 Chronic obstructive pulmonary disease, unspecified; D63.1 Anemia in chronic kidney disease; G25.81 Restless legs syndrome; Z53.29 Procedure and treatment not carried out because of patient's decision for other reasons; F41.9 Anxiety disorder, unspecified; F32.A Depression, unspecified; I35.0 Nonrheumatic aortic (valve) stenosis; S90.465A Insect bite (nonvenomous), left lesser toe(s), initial encounter; E11.621 Type 2 diabetes mellitus with foot ulcer; I95.89 Other hypotension; G47.33 Obstructive sleep apnea (adult) (pediatric); E87.70 Fluid overload, unspecified; E87.5 Hyperkalemia; R60.0 Localized edema; E87.8 Other disorders of electrolyte and fluid balance, not elsewhere classified; E11.69 Type 2 diabetes mellitus with other specified complication; D72.829 Elevated white blood cell count, unspecified; E11.40 Type 2 diabetes mellitus with diabetic neuropathy, unspecified; E11.22 Type 2 diabetes mellitus with diabetic chronic kidney disease; N40.0 Benign prostatic hyperplasia without lower urinary tract symptoms; E78.5 Hyperlipidemia, unspecified; Z89.422 Acquired absence of other left toe(s); Z98.890 Other specified postprocedural states; Z99.2 Dependence on renal dialysis; Z87.891 Personal history of nicotine dependence; Z95.5 Presence of coronary angioplasty implant and graft; Z86.73 Personal history of transient ischemic attack (TIA), and cerebral infarction without residual deficits; Z79.4 Long term (current) use of insulin; Z79.899 Other long term (current) drug therapy
CPT/HCPCS: 0241U; 36415; 73201; 73630; 73701; 80053; 80069; 80202; 82947; 83605; 83735; 84132; 85014; 85018; 85025; 87040; 87070; 87075; 87077; 87147; 87186; 87205; 88305; 88311; 93308; 93321; 94640; 94660; 94664; 94760; 94762; 96374; 96375; 97162; 97166; 97530; 97535; 99285-25; A9270; C1751; J0696; J0881; J2250; J2543; J2704; J3010; J3370; J7030; J7050; Q9967

== ENCOUNTER 2021-06-21 08:00 | Day surgery (SDC) | payer MEDICARE, BC ==
[~2021-06-21 08:00] MED LIST changes: +AMOCLA875 PO; +Norco 5-325 Ta1 EACH PO; +VISBIOME 112.51 EACH PO
== END 2021-06-21 23:59 | disposition home or self-care (01) ==
LOC: WOUND 08:00
DX: S91.105A Unspecified open wound of left lesser toe(s) without damage to nail, initial encounter (principal); S81.812A Laceration without foreign body, left lower leg, initial encounter; T81.41XA Infection following a procedure, superficial incisional surgical site, initial encounter; L02.512 Cutaneous abscess of left hand; I48.20 Chronic atrial fibrillation, unspecified; I13.2 Hypertensive heart and chronic kidney disease with heart failure and with stage 5 chronic kidney disease, or end stage renal disease; E11.22 Type 2 diabetes mellitus with diabetic chronic kidney disease; N18.6 End stage renal disease; I50.9 Heart failure, unspecified; G47.33 Obstructive sleep apnea (adult) (pediatric); E11.40 Type 2 diabetes mellitus with diabetic neuropathy, unspecified; Z79.01 Long term (current) use of anticoagulants; Z87.891 Personal history of nicotine dependence; Z99.2 Dependence on renal dialysis; Z89.422 Acquired absence of other left toe(s); Z79.4 Long term (current) use of insulin
CPT/HCPCS: G0463

== ENCOUNTER 2021-07-21 20:07 | Inpatient (IN) | payer MEDICARE, BC ==
[~2021-07-21] VITALS: Ht 188 cm; Wt 109.2 kg
[2021-07-21 20:48] LABS: BASOPHILS ABSOLUTE AUTO 0.06 K/mm3 (0.00-0.23); BASOPHILS PERCENT AUTO 1 % (0-2); EOSINOPHILS ABSOLUTE AUTO 0.28 K/mm3 (0.00-0.68); EOSINOPHILS PERCENT AUTO 3 % (0-6); Hematocrit 34.4 % (37.0-53.0); Hemoglobin 10.6 g/dL (13.5-17.5); IMMATURE GRAN ABSOLUTE AUTO 0.01 K/mm3 (0.00-0.10); IMMATURE GRAN PERCENT AUTO 0 % (0-1); LYMPHOCYTES PERCENT AUTO 13 % (21-46); MONOCYTES ABSOLUTE AUTO 0.84 K/mm3 (0.16-1.47); MONOCYTES PERCENT AUTO 9 % (4-13); Mean Corpuscular HGB 31.4 pg (26.0-34.0); Mean Corpuscular HGB Conc 30.8 g/dL (31.5-36.5); Mean Corpuscular Volume 102 fL (80-100); Mean Platelet Volume 12.3 fL (9.1-12.4); NEUTROPHILS ABSOLUTE AUTO 6.94 K/mm3 (1.96-9.15); NEUTROPHILS PERCENT AUTO 74 % (41-73); Platelet Count 123 K/mm3 (150-400); RDW Coefficient Variation 15.7 % (11.7-14.2); RDW Standard Deviation 58.2 fL (35.1-46.3); Red Blood Cell Count 3.38 M/mm3 (4.30-5.90); White Blood Cell Count 9.33 K/mm3 (4.00-11.30)
[2021-07-21 21:04] LABS: Albumin/Globulin Ratio 0.7 (0.8-1.8); Bilirubin, Total 0.6 mg/dL (0.1-1.0); Bun/Creatinine Ratio 5.2 (12.0-20.0); Creatinine, Blood 3.67 mg/dL (0.60-1.20); Globulin, Blood 4.1 g/dL (2.2-4.0); Potassium, Blood 4.4 mmol/L (3.5-5.5); Total Protein, Blood 7.1 g/dL (6.4-8.2)
[2021-07-21] MEDS ORDERED: CEPH500 PO (22:03)
--- NOTE | 2021-07-22 03:06 | NUR ---
NEW ADMIT NOTE PT ADMITTED FROM ED ARRIVED BY OLIVIA AND TRANSFERRED TO BED WITH 2PA. PT A/O X 4. PT HAS AN ACTIVE CELLULITIS INFECTION BELOW PERITONIAL CATHETER IN RLQ. PT IS DECONDITIONED. PT DENIES N/V AND CHEST PAIN. PT HAS SOB UPON EXERTION. PT IS CURRENTLY SLEEPING WITH CALL LIGHT WITHIN REACH WITH BED IN LOW POSITION.
[2021-07-22 04:39] LABS: BASOPHILS ABSOLUTE AUTO 0.07 K/mm3 (0.00-0.23); BASOPHILS PERCENT AUTO 1 % (0-2); EOSINOPHILS ABSOLUTE AUTO 0.22 K/mm3 (0.00-0.68); EOSINOPHILS PERCENT AUTO 3 % (0-6); Hematocrit 30.1 % (37.0-53.0); Hemoglobin 9.5 g/dL (13.5-17.5); IMMATURE GRAN ABSOLUTE AUTO 0.02 K/mm3 (0.00-0.10); IMMATURE GRAN PERCENT AUTO 0 % (0-1); LYMPHOCYTES ABSOLUTE AUTO 1.03 K/mm3 (0.84-5.20); LYMPHOCYTES PERCENT AUTO 13 % (21-46); MONOCYTES ABSOLUTE AUTO 0.81 K/mm3 (0.16-1.47); MONOCYTES PERCENT AUTO 10 % (4-13); Mean Corpuscular HGB 31.1 pg (26.0-34.0); Mean Corpuscular HGB Conc 31.6 g/dL (31.5-36.5); Mean Corpuscular Volume 99 fL (80-100); Mean Platelet Volume 12.2 fL (9.1-12.4); NEUTROPHILS ABSOLUTE AUTO 6.01 K/mm3 (1.96-9.15); NEUTROPHILS PERCENT AUTO 74 % (41-73); Platelet Count 117 K/mm3 (150-400); RDW Coefficient Variation 15.4 % (11.7-14.2); RDW Standard Deviation 56.2 fL (35.1-46.3); Red Blood Cell Count 3.05 M/mm3 (4.30-5.90); White Blood Cell Count 8.16 K/mm3 (4.00-11.30)
--- NOTE | 2021-07-22 05:01 | NUR ---
PT ADMITTED TO MED FLOOR AT 0100 FOR CELLULITIS AROUND PERONTINIAL PORT. SHARPIE MARKER AROUND INDURATION BORDER. PT A&O X 4. PT HAS SOB UPON EXERTION. GENERALIZED WEAKNESS. 2PA MAX ASSIST. PT HAS FISTULA IN LFA. NO IV ACCESS. TAKES ABX IM. PATIENT HAS SCABS BLLE AND A LARGE SCAB/BRUISE ON LEFT ELBOW. PT HAS YELLOW PURULENT DRAINAGE SEEPING FROM PORT. PT HAS COMPLAINT OF PAIN BILATERALLY IN PALMS FROM NEUROPATHY. CALLING HOSPITALIST TO OBTAIN ORDER FOR NORCO 5/325 WHICH THE PT TAKES AT HOME. PT IS CURRENTLY SLEEPING IN HOME CLOTHES AND REFUSED A GOWN. CALL LIGHT WITHIN REACH AND BED IN LOW POSITION.
[2021-07-22 05:07] LABS: Albumin, Blood 2.7 g/dL (3.4-5.0); Albumin/Globulin Ratio 0.8 (0.8-1.8); Bilirubin, Total 0.7 mg/dL (0.1-1.0); Bun/Creatinine Ratio 4.6 (12.0-20.0); Calcium, Blood 9.8 mg/dL (8.5-10.1); Creatinine, Blood 4.34 mg/dL (0.60-1.20); Globulin, Blood 3.5 g/dL (2.2-4.0); Potassium, Blood 4.2 mmol/L (3.5-5.5); Total Protein, Blood 6.2 g/dL (6.4-8.2)
--- NOTE | 2021-07-22 05:37 | NUR ---
I AM IN AGREEMENT WITH FOREST PATHOLOGY PROFESSOR NOTES AND ASSESSMENT
--- NOTE | 2021-07-22 11:05 | NUR ---
PT COOPERATIVE AND PLEASANT WITH CARE. DENIES PAIN. A/O X3-4. PT UNSTABLE WHEN SITTING IN EDGE OF BED. PT VISIBLY SEEN SWAYING BACK AND FORTH. H/R REGULAR. MUMUR NOTED. NO TELE. BREATHING ON ROOM AIR. BREATHING IS UNLABORED AND EASY. LUNGS CLEAR BILATERALLY. PT STATES LAST BOWEL MOVEMENT WAS YESTERDAY. 2+ ASSIST WITH FWW TO BATHROOM. PT STATES HE DOES NOT URINATE OFTEN DUE TO KIDNEY FAILURE. DISCOLORATION NOTED BILATERAL EXTREMITES WELL OPEN WOUNDS. PT HAD SX ON RT FOOT TOES AMPUTATION LAST WEEK. WRAPPED IN GAUZE AND COBAN AT THIS TIME. PT HAS LT RING FINGER WRAPPED IN COBAN DUE TO SPIDER BITE. WILL CHECK CHART FOR WOUND CLEANING ORDERS. PT TO RECIEVE DIALYSIS. PERITONEAL DIALYSIS PORT IS RED, WARM, FIRM AND TENDER. APPLIED DRESSING TO CATCH PURULENT DRAINAGE. PT TO POSSIBLY RECIEVE SX TODAY. BED IN LOW POSITION, CALL LIGHT IN REACH, CALLS APPROPRAITLY.
--- NOTE | 2021-07-22 13:45 | NUR ---
Initial Pal Care visit made to pt's room. Colt at bedside. Referral received with request to review code status and complete POLST per pt's request for visit today when discussed yesterday. Pt is currently a FULL CODE and expressed an interest to Dr about changing his code status to DNR. Pt receptive to visit and conversation. He had a clear lunch tray in front of him that he continued to work on but did not take more than sips/bites while I was there. Colt also states they have wanted to do this but both state they have not discussed specifically what pt would like. He thinks he may have completed a POLST a long time ago but is unsure. Pt is here with abd wall cellulitis around his peritoneal dialysis port site. 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 Pt's hands appear contractured or moderately stiffened and difficult to articulate joints to feed self. Pt appears with somewhat flat affect, chronically severely ill appearing. When discussing his code status, he is aware that he is a FULL CODE currently. He states, "I don't want to be a vegatable." and then, "I bet everone says that". We reviewed CPR, intubation, noninvasive respiratory support, ICU care & medications and the vast levels of qualitiy of life between Independent to "vegatative state". Pt thought it might be helpful to him to have reading materials on advanced care planning and advanced care interventions to consider. I gave him "Hard Choices for [place] People" to review and planned with him to return tomorrow to discuss adv care planning further.
--- NOTE | 2021-07-22 17:08 | NUR ---
PT COOPERATIVE AND PLEASANT WITH CARE. A/O X3. C/O RESTLESS LEGS AND PALM PAIN. MEDICATED PER EMAR. H/R REGULAR, MURMUR NOTED. NO TELE. ROOM AIR. LUNGS CLEAR BILATERALLY. 2+ ASSIST TO BEDSIDE COMMODE FOR LARGE BOWEL MOVEMENT. PT GRUNTING AND STATES HE IS HAVING TROUBLE OFTEN WITH BOWEL MOVEMENTS. ORDERS FOR MIRLAX. NO URINATION THIS SHIFT. FOOT WOUNDS AND HAND WOUNDS LEFT IS. ORDERS FROM [facility] FOR NPO AT MIDNIGHT FOR POSSIBLE SURGERY TOMORROW. SODER TO POSSIBLY DO SURGERY WELL ONB ABD. LEGS DRY AND DISCOLORED BILATERALLY. OPEN WOUNDS NOTED. BED IN LOW POSITION, CALL LIGHT IN REACH, CALLS APPROPRIATLY.
--- NOTE | 2021-07-22 17:15 | NUR ---
SPOKE TO DR GALARZA, ORDERS FOR DR BALDERAS TO ASSESS AND TREAT L HAND AND L FOOT WOUNDS. DR BALDERAS DISCUSSED, DRY DRESSING TO FOOT, REPLACE WAS DONE ORIGINALLY. L HAND, XEROFORM AND GAUE AND KERLEX, REPLACE WAS DONE ORIGINALLY. MAKE NPO FOR ANY POSS SURG FOR TOMORROW. DR MARTINEZ WILL SEE IN AM.
--- NOTE | 2021-07-22 18:25 | NUR ---
WOUND CARE DONE. RT FOOT IS DRY AND SCALING. NO OPEN SORES UNDER DRESSING. XEROFORM APPLIED TO AREA, STERILE GAUZE, WRAPPED IN KERLEX AND TAPED DOWN. PICTURES TAKEN. LT HAND HAD OPEN SORE WITH WHITE/YELLOW DRAINAGE. XEROFORM APPLIED, STERILE GAUZE WRAPPED IN KERLEX AND TAPED DOWN. PICTURES TAKE. PT STATES HE CANNOT FEEL ANYTHING BELOW THE KNEE WELL ANYTHING IN HIS HANDS. WILL CONTINUE TO MONITOR.
--- NOTE | 2021-07-22 18:32 | NUR ---
PER DR CRUZ, MAKE NPO MIDNITE FOR TOMORROW DAY SURG
--- NOTE | 2021-07-22 18:37 | NUR ---
AGREE WITH STUDENT NOTES AND ASSESSMENTS
[2021-07-23 04:38] LABS: Hematocrit 31.1 % (37.0-53.0); Hemoglobin 9.8 g/dL (13.5-17.5)
[2021-07-23 05:00] LABS: Albumin, Blood 2.8 g/dL (3.4-5.0); Anion Gap 7 mmol/L (6-16); Blood Urea Nitrogen 16 mg/dL (8-24); Bun/Creatinine Ratio 3.9 (12.0-20.0); CO2, Blood 35 mmol/L (21-32); Calcium, Blood 10.1 mg/dL (8.5-10.1); Chloride, Blood 96 mmol/L (98-108); Creatinine, Blood 4.15 mg/dL (0.60-1.20); Glomerular Filtration Rate 14 (60-); Glucose, Blood 89 mg/dL (70-99); Magnesium, Blood 2.2 mg/dL (1.6-2.4); Phosphorus, Blood 3.2 mg/dL (2.5-4.9); Potassium, Blood 3.9 mmol/L (3.5-5.5); Sodium, Blood 138 mmol/L (136-145)
--- NOTE | 2021-07-23 06:15 | NUR ---
SHIFT SUMMARY 66 YR M ADMITTEDON 07/21/21. FULL CODE. PT C/O PAIN IN BOTH HANDS. HE DID NOT SLEEP MUCH THIS SHIFTAS HE STATED HE COULDN'T FALL ASLEEP. HE STATES THAT HE "FEELS MISERABLE". HE IS SCHEDULED THIS A.M. FOR D&C OF INFECTION ON RIGHT RING FINGER, AND POSSIBLE DC OF HEMODIALYSIS PORT. HR HAS BEEN NPO SINCE MIDNIGHT. WOUNDS ON R HAND AND R FOOT WERE REDRESSED W/ GAUZE THE WRAPPINGS WERE COMIN OFF. R FOOT NO LONGER HAS OPEN WOUNDS OR ANY REDNESS OR DRAINAGE, JUST DRY AND SCALY.
--- NOTE | 2021-07-23 06:49 | NUR ---
PT ASKED THAT THE CONTINUOUS PULSE VIOX BE TURNED OFF IT CONTINUED TO BEEP SPORATICALLY. HE SIGNED A REFUSAL W/ RT AND MONITOR WAS REMOVED.
[2021-07-23 08:36] LABS: Influenza A, PCR NEGATIVE (NEGATIVE); Influenza B, PCR NEGATIVE (NEGATIVE); Resp Syncytial Virus, PCR NEGATIVE (NEGATIVE); SARS-Cov-2 (COVID-19) PCR, MMC NEGATIVE (NEGATIVE)
[2021-07-23 10:41] LABS: Vancomycin, Random 12.6 ug/mL
--- NOTE | 2021-07-23 12:26 | NUR ---
PT TO PACU, A/O X 3. History, Chart, Medications and Allergies reviewed before start of procedure. Patient confirms NPO status and agrees with scheduled surgery. Pre-Op teaching done. Pt verbalizes understanding. Lung sounds with exp wheeze.
--- NOTE | 2021-07-23 15:46 | NUR ---
PROCEDURE PATIENT TO SURGERY AT 1100. PATIENT BACK FROM SURGERY AT 1530. WOUND VAC INTAKE AND SUCTIONING TO LEFT RING FINGER. DRESSING TO ABDOMEN SATURATED WITH BLOOD, REINFORCED BY PACU NURSE. ALMOST SATURATING TO REINFORCED DRESSING WHEN ARRIVED ON FLOOR, PACU NURSE TO NOTIFY DR. CRUZ. PATIENT REPORTS NO PAIN. SPOUSE AT BEDSIDE. VITALS STABLE. WILL CONTINUE TO MONITOR.
--- NOTE | 2021-07-23 16:18 | NUR ---
UPDATE DURING 1600 VITALS, DRESSING CHECKED ON ABDOMEN. SATURATED THROUGH TO ABDOMINAL BINDER. CHARGE NURSE ASSISTED WITH DRESSING CHANGE. OLD DRESSING COMPLETELY SATURATED, EVEN THROUGH ADDITIONAL ADDED ABD PADS. CHARGE NURSE DONNED STERILE GLOVES. DRESSED WITH STERILE GAUZE, ABD PADS, TAPE AND ABDOMINAL BINDER. WILL CONTINUE TO MONITOR. DR. CRUZ NOTIFIED, WILL COME CHECK PATIENT.
--- NOTE | 2021-07-23 17:19 | NUR ---
SURGERY DR. CRUZ ASSESSED PATIENT BLEEDING FROM ABDOMEN. PER DR. CRUZ, WILL BE TAKING PATIENT BACK TO OPERATING ROOM. 1710 PATIENT GIVEN ABX ORDERED. GOWN, ABDOMINAL BINDER, AND DRESSING SATURATED WITH BLOOD. CHANGED GOWN. ADDED MORE ABD PADS. 1725 PATIENT TAKEN TO SURGERY.
--- NOTE | 2021-07-23 18:10 | NUR ---
07/23/211809 Radu Fong PT ENTERED WITH DAILY ABX GIVEN. 2X VESSEL LOOPS REMOVED BY SURGEON.
[2021-07-24] MEDS ORDERED: Rena-Vite Tabl0.8 MG PO (00:23)
[2021-07-24] MEDS ORDERED: NEURONTIN300 MG PO (00:24)
--- NOTE | 2021-07-24 03:35 | NUR ---
SHIFT SUMMARY 66 YR M ADMITTTED ON 07/21/21. FULL CODE. TODAY PT HAD HIS PD CATHETER REMOVED. AFTER INITIAL SURGERY, PT WENT BACK INTO THE OR DUE TO BLEEDING FROM SURGICAL SITE AND A VESSEL LOOP DRAIN WAS PLACED. WOUND HAS BEEN CHECKED SEVERAL TIMES THIS SHIFT AND NO BLEEDING HAS BEEN NOTED. PT ALSO HAD I&D W/ PARTIAL WOUND CLOSURE TO AN OPEN WOUND ON HIS L RING FINDER. WOUND VAC IS CURRENTLY IN PLACE W/ NO DRAINAGE NOTED THUS FAR. PT IS DOING WELL POST SURGERY, BUT STATES THAT HE DOES NOT NOT FEEL WELL IN GENERAL. HE IS ANXIOUS TO GET OUT OF THE HOSPITAL AND GO HOME.
[2021-07-24 05:02] LABS: Hematocrit 25.3 % (37.0-53.0); Hemoglobin 8.1 g/dL (13.5-17.5)
[2021-07-24 05:40] LABS: Albumin, Blood 2.6 g/dL (3.4-5.0); Anion Gap 7 mmol/L (6-16); Blood Urea Nitrogen 25 mg/dL (8-24); Bun/Creatinine Ratio 4.6 (12.0-20.0); CO2, Blood 33 mmol/L (21-32); Calcium, Blood 9.3 mg/dL (8.5-10.1); Chloride, Blood 96 mmol/L (98-108); Creatinine, Blood 5.47 mg/dL (0.60-1.20); Glomerular Filtration Rate 11 (60-); Glucose, Blood 131 mg/dL (70-99); Magnesium, Blood 2.2 mg/dL (1.6-2.4); Phosphorus, Blood 5.8 mg/dL (2.5-4.9); Potassium, Blood 4.6 mmol/L (3.5-5.5); Sodium, Blood 136 mmol/L (136-145)
--- NOTE | 2021-07-24 18:01 | NUR ---
SHIFT SUMMARY PATIENT DENIES PAIN, NAUSEA, AND SHORTNESS OF BREATH. PATIENT IS A 2P FOR TRANSFERS. PATIENT HAD DIALYSIS TODAY. DR. CRUZ SAW PATIENT. PLAN TO REMOVED PACKING FROM ABDOMINAL SITE TOMORROW. DRESSING HAD SMALL AMOUNT OF SEROSANGUINEOUS DRAINAGE. STERILE DRESSING CHANGED. DR. BALDERAS SAW PATIENT. WOUND VAC TO LEFT 4TH FINGER. NO DRAINAGE. PER DR. BALDERAS, PATIENT WILL NEED WOUND VAC WHEN DISCHARGED. LIFE INSURANCE SPECIALIST CONSULT ORDERED FOR WOUND VAC. NEW ORDERS FOR REGULAR DIET, PATIENT TOLERATING WELL. PATIENT HAD VISITORS TODAY. PATIENT WNATING TO GO HOME. PATIENT IS PLEASANT AND COOPERATIVE WITH CARE.
--- NOTE | 2021-07-25 05:41 | NUR ---
SHIFT SUMMARY 66 YR M ADMITTED ON 07/21/21 FOR INFECTIONS IN ABDOMINAL DIALYSIS CATH SITE AND WOUND ON LEFT RING FINGER. FULL CODE. PT HEALING AFTER SURGICAL INTERVENTION FOR BOTH WOUNDS. DIALYSIS CATH REMOVED AND SITE IS PACKED AND BANDAGED. DRESSING IS CLEAN AND DRY. WOUND VAC ON LEFT RING FINGER HAS NOT PRODUCED ANY DRAINAGE. PT STATES HE IS NOT FEELING WELL IN GENERAL AND HAD SEVERAL EPISODES OF DIARRHEA THIS SHIFT. HE DENIES N/V BUT C/O WEAKNESS. HE IS HOPING TO GO HOME TODAY.
[2021-07-25 07:55] LABS: Hematocrit 29.8 % (37.0-53.0); Hemoglobin 9.3 g/dL (13.5-17.5)
[2021-07-25 08:15] LABS: Albumin, Blood 2.7 g/dL (3.4-5.0); Anion Gap 8 mmol/L (6-16); Blood Urea Nitrogen 19 mg/dL (8-24); CO2, Blood 32 mmol/L (21-32); Calcium, Blood 9.8 mg/dL (8.5-10.1); Chloride, Blood 100 mmol/L (98-108); Glomerular Filtration Rate 13 (60-); Glucose, Blood 96 mg/dL (70-99); Magnesium, Blood 2.3 mg/dL (1.6-2.4); Phosphorus, Blood 3.7 mg/dL (2.5-4.9); Potassium, Blood 3.4 mmol/L (3.5-5.5); Sodium, Blood 140 mmol/L (136-145)
--- NOTE | 2021-07-25 10:18 | NUR ---
PT FLAT IN AFFECT, COOPERATIVE WITH CARE. A/OX3. C/O LEG PAIN. MEDICATED PER EMAR. H/R REGULAR. MURMUR NOTED. NO TELE. BREATHING IS EASY AND UNLABORED. ON ROOM AIR. LUNGS CLEAR BILATERALLY. LOOSE STOOL. ABDOMEN IS TENDER. PT 1-2+ ASSIST TO BSC. PT STATES HE DOES NOT URINATE DUE TO HIS KIDNEY FAILURE. DRY SKIN ON LOWER EXTREMITES AND DISCOLORATION NOTED. PT HAS BAND WRAPPED AROUND ABDOMEN FOR HIS PERITONEAL DIALYSIS CATHETER REMOVED. PT LT MIDDLE FINGER WRAPPED IN COBAN AND KERLEX. WOUND VAC IS APPLIED, NO DRAINAGE PRESENT IN CONTAINER. LT FOOT WRAPPED IN COBAN AND KERLEX. WILL CONTINUE TO MONITOR. BED IN LOW POSITION, CALL LIGHT IN REACH, CALLS APPOPRIATLY.
--- NOTE | 2021-07-25 10:45 | NUR ---
PT PLEASANT COOP A/O X3. STATES PAIN QUITE TOLERABLE AT THIS MOMENT. H/R IRREGULAR. MURMUR NOTED. NO TELE. LUNGS CLEAR, REWP EASY, UNLABORED. ON R.A. BT X4 LAST BM THIS AM PER PT. VOIDS VERY LITTLE. STATES R/T DIALYSIS. 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 PERITONEL DIALYSIS PORT REMOVED BY DR CRUZ SUNDAY. DR CRUZ IN TO SEE T HIS AM. REMOVED DRESSING AND PACKING. LEFT THE RED CORD IN PLACE TO ASSIST IN DRAINAGE. STATES PT MAYY SHOWER WITH OUT ANY DRESSING COVERAGE. BARE SKIN, OKAY FOR SOAP & WATER. THEN PAT DRY WITH 6X6 GAUZE AND PLACE 2 6X6 GAUZE PADS AND ABD PAD ON TOP. MAY TAPE IN PLACE OR USE ABD BINDER TO HOLD IN PLACE.. PT PREFERENCE. FINGER WOUND HAS WOUND VAC ATTACHED AND IN PLACE AND OPERATIONAL. NO DRAINAGE NOTED. TOES ON LEFT FOOT ARE DRY. WRAPPED. PT CONTINUES TO BE WEAK. 1 HEAVY ASST. 2 MODERATE. TO BSC. BED IN LOW POSITION. CALL LITE IN REACH, CALLS APROP
--- NOTE | 2021-07-25 12:09 | NUR ---
CALLED DR FLETCHER RE S/S/ MOVED TO LOW SCALE.
--- NOTE | 2021-07-25 14:22 | NUR ---
F/u visit made to pt. He was lying in bed, trying to sit up to edge of bed but needing help getting tubing and cords that he was tethered to untangled. He appears pale, sallow and profoundly fatigued and depressed. Assist given for pt to sit at side of bed in front of lunch tray. Pt reports fatigue, no appetite, insomnia and generalized, all-over aching and feeling "lousy". He reports many nights of being unable to sleep. He does not currently have anything ordered for sleep. He is on an antidepressant and has some medications per eMAR for pain. Pt asks that I remove his meal tray due to no appetite. He denies nausea. Report left by for RN on my visit and I contacted for report on my visit. Pt interested in a sleep medication at . VO obtained and entered for Trazadone 25mg PO qhs prn insomnia. RN and pt notified of new order. Therapy working with pt when I returned to the room. was not present in the room today and pt stated he did not feel up to completing the POLST at the time of my visit. I invited him to let me know any time he did and contact information provided.
--- NOTE | 2021-07-25 17:05 | NUR ---
WOUND VAC CHANGED 07/25/21. TWO SUTURES IN PLACE. PETROLEUM GAUZE PLACED OVER TENDON, COVERED BLACK FOAM, VAC SET CONTINUOUS @ 120MMHG. [employer] ACHIEVED PICTURE AND ASSESSMENT IN CHART
--- NOTE | 2021-07-25 18:15 | NUR ---
PT COOPERATIVE WITH CARE. FLAT IN AFFECT. C/O PAIN IN LOWER EXTREMITIES AND PALMS. MEDICATED PER EMAR. NO TELE. H/R REGULAR. MURMUR NOTED. LUNGS CLEAR BILATERALLY. BREATHING IS UNLABORED AND EASY ON ROOM AIR. PT ASSISTED TO BSC MULTIPLE TIMES TODAY WITH LOOSE STOOL. DARK IN COLOR. NO URINE PRODUCED. BILATERAL LOWER EXTREMITES DRY, SCALING WITH DISCOLORATION NOTED. LT FOOT WRAPPED WITH COBAN AND KERLEX. DID NOT CHANGE BANDAGED. LT RING FINGER WRAPPED WITH WOUND VAC IN PLACE. NO DRAINAGE PRESENT IN WOUND VAC CANISTER. RN FROM [facility]OUND [facility]INIC CHANGED BANDAGE TODAY. PERITONEAL DIALYSIS PORT WAS REMOVED THIS WEEK. BANDAGE AND ABDOMEN WRAP IN PLACE. SLIGHT RED DRAINAGE PRESENT. PT STARTED VOMITING TODAY. C/O NAUSEA MOST OF DAY. PT MEDICATED WITH ZOFRAN PER EMAR. BED IN LOW POSITION, CALL LIGHT IN REACH, CALLS APPROPRIATLY.
--- NOTE | 2021-07-25 18:51 | NUR ---
AGREE WITH STUDENT NOTES AND DOCUMENTATIONS
--- NOTE | 2021-07-26 04:40 | NUR ---
PATIENT ON ASSESSMENT A/OX4, HOWEVER NOTED WITH PERIODS OF CONFUSION. PATIENT DRESSING TO PD SITE REMOVAL CHANGED PREVIOUS ONE HAD FALLEN OFF. NEW DRESSING NOTED WITH SMALL AMOUNT OF DRAINAGE. PATIENT VERBALIZED PAIN TO HANDS AND MEDICATED PER MAR. TRAZADONE GIVEN HOWEVER PT STILL EXPERIENCED INSONMIA. POWER GLIDE IN PLACE WITH BLOOD RETURN NOTED. ABD BINDER IN PLACE. NO OTHER ACUTE CHANGES NOTED.
[2021-07-26 04:46] LABS: BASOPHILS ABSOLUTE AUTO 0.09 K/mm3 (0.00-0.23); BASOPHILS PERCENT AUTO 1 % (0-2); EOSINOPHILS PERCENT AUTO 6 % (0-6); Hematocrit 26.3 % (37.0-53.0); IMMATURE GRAN ABSOLUTE AUTO 0.03 K/mm3 (0.00-0.10); IMMATURE GRAN PERCENT AUTO 0 % (0-1); LYMPHOCYTES ABSOLUTE AUTO 1.18 K/mm3 (0.84-5.20); LYMPHOCYTES PERCENT AUTO 17 % (21-46); MONOCYTES ABSOLUTE AUTO 0.76 K/mm3 (0.16-1.47); MONOCYTES PERCENT AUTO 11 % (4-13); Mean Corpuscular HGB 30.2 pg (26.0-34.0); Mean Corpuscular HGB Conc 30.4 g/dL (31.5-36.5); Mean Corpuscular Volume 99 fL (80-100); Mean Platelet Volume 11.4 fL (9.1-12.4); NEUTROPHILS ABSOLUTE AUTO 4.66 K/mm3 (1.96-9.15); NEUTROPHILS PERCENT AUTO 65 % (41-73); Platelet Count 138 K/mm3 (150-400); RDW Coefficient Variation 15.3 % (11.7-14.2); RDW Standard Deviation 56.1 fL (35.1-46.3); Red Blood Cell Count 2.65 M/mm3 (4.30-5.90); White Blood Cell Count 7.12 K/mm3 (4.00-11.30)
[2021-07-26 05:13] LABS: Albumin, Blood 2.5 g/dL (3.4-5.0); Albumin/Globulin Ratio 0.8 (0.8-1.8); Bilirubin, Total 0.4 mg/dL (0.1-1.0); Bun/Creatinine Ratio 3.8 (12.0-20.0); Calcium, Blood 9.7 mg/dL (8.5-10.1); Creatinine, Blood 5.99 mg/dL (0.60-1.20); Magnesium, Blood 2.3 mg/dL (1.6-2.4); Phosphorus, Blood 3.9 mg/dL (2.5-4.9); Potassium, Blood 3.6 mmol/L (3.5-5.5); Total Protein, Blood 5.5 g/dL (6.4-8.2)
[2021-07-26 12:42] LABS: Vancomycin, Random 15.1 ug/mL
--- NOTE | 2021-07-26 18:24 | NUR ---
SHIFT SUMMARY PT WAS MEANT TO DSCHARGE TODAY,BUT WAS HELD OFF THERE WAS AN ISSUE GETTING A WOUND VAC FOR HIM TO TAKE HOME AND TO ENSURE HE WOULD HAVE A DIALYSIS CHAIR FOR THE WEEK. HE WAS VERY SAD ABOUT NOT BEING ABLE TO RETURN HOME TODAY BUT UNDERSTOOD. DRESSING ON ABDOMEN CHANGED TODAY, MINIMAL DRAINAGE. WOUND VAC STILL WITHOUT DRAINAGE, TO BE CHANGED TOMORROW IF NOT DISCHARGING. HE SAYS HE IS IN PAIN WHEN DRESSING, BUT NOT WHEN RELAXING. NO REDNESS OR SWELLING WILL CONTINUE TO MONITOR.
--- NOTE | 2021-07-27 02:54 | NUR ---
PATIENT A/OX4, INTERMITTENT CONFUSED, SAD BECAUSE HE THOUGHT HE WAS GOING HOME TODAY AND NOW HAS TO STAY UNTIL A "DIALYSIS CHAIR IS AVAILABLE." PD CATH REMOVAL SITE NOTED WITH MINIMUM DRAINAGE. DRESSING CHANGED HOWVER DUE TO PATIENT POSITIONING IT NEEDS FREQUENT REINFORCEMENT. PATIENT UP TO BSC WITH 1 EPISODE OF LOOSE STOOL. C/O OF NEUROPATHIC PAIN TO BILAT. HANDS, PRN GABAPENTIN GIVEN PER MAR. NAUSEATED AND GIVEN ZOFRAN.
[2021-07-27 06:08] LABS: Hematocrit 28.3 % (37.0-53.0); Hemoglobin 8.9 g/dL (13.5-17.5)
[2021-07-27 06:43] LABS: Albumin, Blood 2.7 g/dL (3.4-5.0); Anion Gap 7 mmol/L (6-16); Blood Urea Nitrogen 18 mg/dL (8-24); Bun/Creatinine Ratio 3.5 (12.0-20.0); CO2, Blood 34 mmol/L (21-32); Calcium, Blood 9.6 mg/dL (8.5-10.1); Chloride, Blood 98 mmol/L (98-108); Glomerular Filtration Rate 11 (60-); Glucose, Blood 90 mg/dL (70-99); Magnesium, Blood 2.3 mg/dL (1.6-2.4); Phosphorus, Blood 3.5 mg/dL (2.5-4.9); Potassium, Blood 3.7 mmol/L (3.5-5.5); Sodium, Blood 139 mmol/L (136-145)
--- NOTE | 2021-07-27 14:25 | NUR ---
RN NOTE ME DEION IS ORIENTATED X4, HE WAS ABLE TO GET SOME SLEEP THIS MORNING. AFTERWARDS I CLEANSED AND REDRESSED HIS ABDOMINAL WOUND AND HIS LEFT FOOT WOUND. LEFT FOOT WOUND LOOKS LIKE IT'S HEALING WELL, ABDOMEN IS REDENED AND SWOLLEN WITH SOME BROWN COLORED DISCHARGE TO DRESSING. LOOP DRAIN IN PLACE. FINGER WOUND VAC DRESSING LEFT UNDISTURBED ADMISSIONS SPECIALIST SAID NOT TO CHANGE IT TODAY, PLAN IS TO HAVE IT CHANGED IN THE MD OFFICE TOMORROW AFTER DISCHARGE LATER TODAY. BLOOD SUGARS REMAIN LOW IN THE 80S. DR BARRIENTOS AWARE. PT SAID THE [facility] FOOD ISN'T APPETISING. WE DISCUSSED EATING AND DRINKING DESPITE APPETITE AND HE DRANK ENSURE. NO SOB. NON PRODUCTIVE COUGH THEN LUNG SOUNDS CLEAR AFTER COUGHING. NO C/O PAIN. HE DOES HAVE NEUROPETHY TO HANDS AND LEGS/FEET BELOW THE KNEES. BED LOW, CALL LIGHT IN REACH.
[2021-07-27] MEDS ORDERED: DOXY100 PO ×2 (16:10→16:15)
[2021-07-27] MEDS ORDERED: HYDR1TAB94 PO ×2 (16:12→16:16)
[2021-07-27] MEDS ORDERED: [UNRECOGNIZED DRUG - CODE] PO (16:13)
--- NOTE | 2021-07-27 17:36 | NUR ---
DISCHARGE NOTE PT AND VERBALISE UNDERSTANDING OF VERBAL AND WRITTEN DISCHARGE INSTRUCTIONS. WOUND VAC SET UP AND SENT HOME WITH PT ON BATTERY. THEY HAVE TOTE BAG WITH HIM ANALYST, INTRUCTIONS AND SUPPLIES. THEY VERBALISED UNDERSTANDING OF F/U APPOINTMENTS. POWER GLIDE REMOVED INTACT AND DRESSING APPLIED. PT WHEELED WITH OMAR AND HIS TO HIS DAUGHTER WAITING OUTSIDE TO GIVE THEM A RIDE HOME. NO PROBLEMS OR CONCERNS VOICED PRIOR TO DISCHARGE HOME BY PT OR HIS .
== END 2021-07-27 17:34 | disposition home or self-care (01) | DRG 906 ==
LOC: ER 20:07 → MEDS 20:08
PROVIDERS: Family Medicine; Internal Medicine Nephrology; Orthopaedic Surgery; Student in an Organized Health Care Education/Training Program; Surgery; ADMIT Family Medicine
PROC: 5A1D70Z Performance of Urinary Filtration, Intermittent, Less than 6 Hours Per Day (ICD-10-PCS; 2021-07-22)
PROC: 0K9L0ZZ Drainage of Left Abdomen Muscle, Open Approach (ICD-10-PCS; 2021-07-23)
PROC: 0W3F0ZZ Control Bleeding in Abdominal Wall, Open Approach (ICD-10-PCS; 2021-07-23)
PROC: 0WPG03Z Removal of Infusion Device from Peritoneal Cavity, Open Approach (ICD-10-PCS; principal; 2021-07-23 12:30)
PROC: 0JBK0ZZ Excision of Left Hand Subcutaneous Tissue and Fascia, Open Approach (ICD-10-PCS; 2021-07-23 12:30)
DX: T85.71XA Infection and inflammatory reaction due to peritoneal dialysis catheter, initial encounter (principal); N18.6 End stage renal disease; A41.9 Sepsis, unspecified organism; L03.311 Cellulitis of abdominal wall; I13.2 Hypertensive heart and chronic kidney disease with heart failure and with stage 5 chronic kidney disease, or end stage renal disease; N25.81 Secondary hyperparathyroidism of renal origin; I97.620 Postprocedural hemorrhage of a circulatory system organ or structure following other procedure; Z20.822 Contact with and (suspected) exposure to COVID-19; B95.62 Methicillin resistant Staphylococcus aureus infection as the cause of diseases classified elsewhere; E11.42 Type 2 diabetes mellitus with diabetic polyneuropathy; I50.9 Heart failure, unspecified; N40.0 Benign prostatic hyperplasia without lower urinary tract symptoms; D63.1 Anemia in chronic kidney disease; J44.9 Chronic obstructive pulmonary disease, unspecified; E78.5 Hyperlipidemia, unspecified; E87.6 Hypokalemia; G47.33 Obstructive sleep apnea (adult) (pediatric); I25.10 Atherosclerotic heart disease of native coronary artery without angina pectoris; I48.91 Unspecified atrial fibrillation; S61.205A Unspecified open wound of left ring finger without damage to nail, initial encounter; I35.0 Nonrheumatic aortic (valve) stenosis; F41.9 Anxiety disorder, unspecified; F32.A Depression, unspecified; I95.9 Hypotension, unspecified; G25.81 Restless legs syndrome; E11.22 Type 2 diabetes mellitus with diabetic chronic kidney disease; Z79.899 Other long term (current) drug therapy; Z99.2 Dependence on renal dialysis; Z86.718 Personal history of other venous thrombosis and embolism; Z98.890 Other specified postprocedural states; Y82.8 Other medical devices associated with adverse incidents
CPT/HCPCS: 0241U; 36415; 74176; 80053; 80069; 80202; 82947; 83036; 83735; 84100; 85014; 85018; 85025; 87070; 87075; 87077; 87186; 87205; 94760; 94762; 96365; 96366; 96372; 96374; 96376; 97110; 97162; 97166; 97530; 97535; 99284-25; A9270; G0378; J0690; J0881; J1100; J1644; J1885; J2370; J2405; J2704; J3010; J3370; J7030; J7060; J7120

== ENCOUNTER 2022-01-07 18:36 | Emergency (ER) | payer MEDICARE, BC ==
[~2022-01-07] VITALS: Ht 188 cm; Wt 94.3 kg
[~2022-01-07 18:36] MED LIST changes: +DOXY100 PO; +HYDR1TAB94 PO; +NEURONTIN300 MG PO; +[UNRECOGNIZED DRUG - CODE] PO
[2022-01-07] MEDS ORDERED: Vibramycin100 MG PO (20:27)
== END 2022-01-07 20:34 | disposition home or self-care (01) ==
LOC: ER 18:36
DX: L03.012 Cellulitis of left finger (principal); I11.0 Hypertensive heart disease with heart failure; I50.9 Heart failure, unspecified; N19 Unspecified kidney failure; E11.9 Type 2 diabetes mellitus without complications; Z79.899 Other long term (current) drug therapy
CPT/HCPCS: 99282

== ENCOUNTER 2022-03-12 22:02 | Observation (INO) | payer MEDICARE, BC ==
[~2022-03-12] VITALS: Ht 167.6 cm; Wt 93.0 kg
[~2022-03-12 22:02] MED LIST changes: +PREG75 PO; -PREGABALIN50 MG PO; -ROPI1 PO; +Ropinirole HCl0.5 MG PO; +SERT100 PO; +Vibramycin100 MG PO; -ZOLOFT50 MG PO
[2022-03-12 23:08] LABS: BASOPHILS ABSOLUTE AUTO 0.03 K/mm3 (0.00-0.23); BASOPHILS PERCENT AUTO 0 % (0-2); EOSINOPHILS ABSOLUTE AUTO 0.13 K/mm3 (0.00-0.68); EOSINOPHILS PERCENT AUTO 1 % (0-6); IMMATURE GRAN ABSOLUTE AUTO 0.02 K/mm3 (0.00-0.10); IMMATURE GRAN PERCENT AUTO 0 % (0-1); LYMPHOCYTES ABSOLUTE AUTO 0.94 K/mm3 (0.84-5.20); LYMPHOCYTES PERCENT AUTO 10 % (21-46); MONOCYTES ABSOLUTE AUTO 0.86 K/mm3 (0.16-1.47); MONOCYTES PERCENT AUTO 10 % (4-13); Mean Corpuscular HGB 32.4 pg (26.0-34.0); Mean Corpuscular HGB Conc 33.3 g/dL (31.5-36.5); Mean Corpuscular Volume 97 fL (80-100); Mean Platelet Volume 12.9 fL (9.1-12.4); NEUTROPHILS ABSOLUTE AUTO 7.06 K/mm3 (1.96-9.15); NEUTROPHILS PERCENT AUTO 78 % (41-73); NRBC ABSOLUTE 0.02 K/mm3 (0.00-0.02); NRBC Auto 0.2 /100 WBC (0.0-0.2); Platelet Count 128 K/mm3 (150-400); RDW Coefficient Variation 16.9 % (11.7-14.2); RDW Standard Deviation 57.8 fL (35.1-46.3); Red Blood Cell Count 3.39 M/mm3 (4.30-5.90); White Blood Cell Count 9.04 K/mm3 (4.00-11.30)
[2022-03-12 23:22] LABS: Base Excess Venous 8.5 mmol/L; Bicarbonate Venous 30.5 mmol/L (24.0-30.0); PCO2 Venous 50.2 mmHg (38-42); pH Blood Venous 7.42 (7.34-7.37)
[2022-03-12 23:33] LABS: Albumin, Blood 3.4 g/dL (3.4-5.0); Albumin/Globulin Ratio 0.9 (0.8-1.8); Bun/Creatinine Ratio 8.9 (12.0-20.0); Calcium, Blood 9.6 mg/dL (8.5-10.1); Creatinine, Blood 5.87 mg/dL (0.60-1.20); Globulin, Blood 3.6 g/dL (2.2-4.0); Potassium, Blood 5.9 mmol/L (3.5-5.5)
[2022-03-13] MEDS ORDERED: DULO30 PO (02:16)
[2022-03-13] MEDS ORDERED: RENVELA800 MG PO (02:16)
[2022-03-13] MEDS ORDERED: QVAR REDIHALE10.6 G2 INH (02:17)
[2022-03-13] MEDS ORDERED: TEMA30 PO (02:17)
[2022-03-13] MEDS ORDERED: ESZO2 PO (02:18)
[2022-03-13] MEDS ORDERED: GABA300 PO (02:18)
[2022-03-13] MEDS ORDERED: COMBIVENT RESPIM4 G1 INH (02:18)
[2022-03-13] MEDS ORDERED: MIRTAZAPINE7.5 M1 PO (02:19)
[2022-03-13] MEDS ORDERED: RENAL VITAMIN0.8 MG PO (02:19)
[2022-03-13 02:39] LABS: Influenza A, PCR NEGATIVE (NEGATIVE); Influenza B, PCR NEGATIVE (NEGATIVE); Resp Syncytial Virus, PCR NEGATIVE (NEGATIVE); SARS-Cov-2 (COVID-19) PCR, MMC NEGATIVE (NEGATIVE)
--- NOTE | 2022-03-13 02:43 | NUR ---
REPORT RECIEVED FROM JUNE, SCHEDULER AND AWAITING PT T/F TO ROOM 364.
--- NOTE | 2022-03-13 05:06 | NUR ---
SUMMARY: PT A/OX4, INDEPENDENT IN ROOM AND CALLS APPROPRIATELY TO SPECIFY NEEDS. PAIN CONTROL BEING MANAGED W/PRN TYLENOL #4, TORADOL AND MORPHINE FOR TOLERABLE RELIEF. NO ACUTE CHANGES, VSS/AFEBRILE. WCTM AND REPORT TO DAY RN.
[2022-03-13 05:15] LABS: BASOPHILS ABSOLUTE AUTO 0.03 K/mm3 (0.00-0.23); BASOPHILS PERCENT AUTO 0 % (0-2); EOSINOPHILS ABSOLUTE AUTO 0.11 K/mm3 (0.00-0.68); EOSINOPHILS PERCENT AUTO 1 % (0-6); Hematocrit 31.3 % (37.0-53.0); Hemoglobin 10.4 g/dL (13.5-17.5); IMMATURE GRAN ABSOLUTE AUTO 0.03 K/mm3 (0.00-0.10); IMMATURE GRAN PERCENT AUTO 0 % (0-1); LYMPHOCYTES ABSOLUTE AUTO 0.69 K/mm3 (0.84-5.20); LYMPHOCYTES PERCENT AUTO 9 % (21-46); MONOCYTES ABSOLUTE AUTO 0.91 K/mm3 (0.16-1.47); MONOCYTES PERCENT AUTO 11 % (4-13); Mean Corpuscular HGB 32.2 pg (26.0-34.0); Mean Corpuscular HGB Conc 33.2 g/dL (31.5-36.5); Mean Corpuscular Volume 97 fL (80-100); NEUTROPHILS ABSOLUTE AUTO 6.18 K/mm3 (1.96-9.15); NEUTROPHILS PERCENT AUTO 78 % (41-73); Platelet Count 100 K/mm3 (150-400); RDW Coefficient Variation 16.6 % (11.7-14.2); RDW Standard Deviation 56.9 fL (35.1-46.3); Red Blood Cell Count 3.23 M/mm3 (4.30-5.90); White Blood Cell Count 7.95 K/mm3 (4.00-11.30)
[2022-03-13 05:17] LABS: Mean Platelet Volume 13.5 fL (9.1-12.4)
[2022-03-13 05:38] LABS: Anion Gap 11 mmol/L (6-16); Blood Urea Nitrogen 54 mg/dL (8-24); Bun/Creatinine Ratio 8.9 (12.0-20.0); CO2, Blood 30 mmol/L (21-32); Calcium, Blood 9.5 mg/dL (8.5-10.1); Chloride, Blood 94 mmol/L (98-108); Creatinine, Blood 6.05 mg/dL (0.60-1.20); Glomerular Filtration Rate 10 (60-); Glucose, Blood 83 mg/dL (70-99); Phosphorus, Blood 4.7 mg/dL (2.5-4.9); Potassium, Blood 5.1 mmol/L (3.5-5.5); Sodium, Blood 135 mmol/L (136-145)
--- NOTE | 2022-03-13 05:53 | NUR ---
T/F AND SUMMARY: PT T/F VIA GURNEY TO ROOM 364 AT 0258. HE'S A/OX3 BUT FORGETFULL AT TIMES W/BED ALARM ON FOR FALL RISK. PT USES FWW AND W/C AT BASELINE BUT IS MORE DECONDITIONED THEN TYPICAL. LS ARE COARSE W/WHEEZES AND HE REQUIRES TITRATED O2 TO MAINTAIN SPO2>90%. PT ON 2L O2 BLEED IN TO CPAP AT PRESENT BUT HE CONT'S TO DESAT AT TIMES DURING EPISODES OF APNEA. CONT BIOX IS INTACT AND RT TO PROVIDE BREATHING TX'S PRN. BLE'S ARE DISCOLORED, RED, SWOLLEN AND DRY W/SORES AND SCABS PRESENT FROM PROBABLE PVD AND DIABETES. LEGS WERE CLEANSED W/NONADHERENT DX'S AND VASOLINE GAUZE APPLIED TO SORES, THEN WRAPPED W/KERLEX AND SREEDHAR BANDAGES. PHOTO DOCUMENTATION COMPLETED AND CONSENT OBTAINED. PEDAL PULSES ARE BARELY PALPABLE AND EXT'S ARE COOL. FEET AND HANDS ARE SCALEY W/SCATTERED SCABBING/SCARRING. TOES AND NAILBEDS ARE HARDENED AND CALLOUSED AND L.FOOT HAS 2ND, 3RD AND PINKY TOES AMPUTATED. PT WAS PLACED ON TELEMETRY AND IS AFIB W/PVC'S AND 90'S BPM. FISTULA IS PRESENT TO L.ARM AND DIALSYSIS SCHEDULE IS E, VICKEY, SAT. CX CALLED. SBP WAS 90'S-100S BUT PT STATED THIS IS WNL "LATELY", NO S/S CARDIAC DISTRESS. VSS/AFEBRILE, NO ACUTE CHANGES. PT REQUIRES ADL ASSIST FROM /[facility] MANAGE BLE WOUND/DX CHANGES. WCTM AND REPORT TO DAY RN. DESATS OFTEN
--- NOTE | 2022-03-13 16:26 | NUR ---
SHIFT SUMMARY; PATIENT RECEIVED DIALYSIS TODAY. HE REMAINS ON CPAP THROUGHOUT THE DAY AND IS TOO SOMNOLENT TO RECEIVE MEDICATIONS HE IS AN ASPIRATION RISK. HIS BLOOD PRESSURES ARE SOFT AT 97 SYSTOLIC. HE IS ORIENTED TO SELF AND SITUATION BUT NOT PLACE. PATIENT IS NOTED TO REMOVE CPAP DURING DAY AND SAT MONITOR BEEPING WAKES HIM AND HE IS ABLE TO PERCEIVE THE SITUATION PATIENTS SPOUSE AND SON CAME TO VISIT HIM. PER SPOUSE PATIENTS CPAP HAS BEEN BROKEN FOR 4 AND 1/2 MONTHS. THEY RECEIVED IT FROM [facility] AND DO NOT QUALIFY FOR A NEW ONE FOR 6 MORE MONTHS. AUBREY SENT OUT A TECHNITIAN TO FIX PROBLEM AND COULD NOT FIX TO PATIENTS SATISFACTION. HE IS VERY CONCERNED ABOUT THE NOISE OF AIR BLOWING AND IT WAKES HIM UP. SAID HE WILL SPEAK WITH PATIENTS PRIMARY AND WILL PURSUE A REMEDY FOR HIM.
--- NOTE | 2022-03-14 06:12 | NUR ---
SUMMARY: PT A/O TO SELF, FAMILY AND SURROUNDINGS. HE CAN BE SLOW TO RESPOND AND AT TIMES NEGLECTS HIS CALL LIGHT BUT APPROPRIATLY SPECIFIES NEEDS WHEN STAFF PRESENT. HE'S VERY WEAK BUT CAN REPOSITION SELF BUT REQUIRES SOME BOOSTING/REPOSITION ASSIST AT TIMES. PT OFTEN REMOVES CPAP T/O NOCTE AND DESATS QUICKLY TO SPO2 70'S-80'S% CAUSING BIOX TO ALARM. ONCE REPLACED, HE RECOVERS QUICKLY AND MAINTAINS SPO2 >92%. 5L O2 BLEED IN HAS BEEN REQUIRED AND NASAL MASK WAS APPLIED FOR BETTER SEAL AND IMPROVED TOLERANCE. LS ARE COARSE W/WHEEZES AUSCULTATED AND PT ENCOURAGED TO DEEP BREATH AND COUGH WA. HE REMAINS OLIGURIC ON DIALYSIS W/NO UO AGAIN THIS SHIFT. L.ARM FISTULA PRESENT W/THRILLS AND BRUITS INTACT. DX'S TO BLE'S REMAIN C/D/I, SEE SKIN ASSESSMENT FOR DETAILS. HE WAS NSR W/PVC'S AT 80'S BPM ON TELEMTRY THIS SHIFT W/VSS AND NO ACUTE CHANGES. WCTM AND REPORT TO DAY RN.
[2022-03-14 06:28] LABS: BASOPHILS ABSOLUTE AUTO 0.03 K/mm3 (0.00-0.23); BASOPHILS PERCENT AUTO 1 % (0-2); EOSINOPHILS ABSOLUTE AUTO 0.17 K/mm3 (0.00-0.68); EOSINOPHILS PERCENT AUTO 3 % (0-6); Hemoglobin 10.2 g/dL (13.5-17.5); IMMATURE GRAN ABSOLUTE AUTO 0.01 K/mm3 (0.00-0.10); IMMATURE GRAN PERCENT AUTO 0 % (0-1); LYMPHOCYTES ABSOLUTE AUTO 0.77 K/mm3 (0.84-5.20); LYMPHOCYTES PERCENT AUTO 12 % (21-46); MONOCYTES ABSOLUTE AUTO 0.74 K/mm3 (0.16-1.47); MONOCYTES PERCENT AUTO 11 % (4-13); Mean Corpuscular HGB 32.3 pg (26.0-34.0); Mean Corpuscular HGB Conc 32.9 g/dL (31.5-36.5); Mean Corpuscular Volume 98 fL (80-100); Mean Platelet Volume 12.5 fL (9.1-12.4); NEUTROPHILS PERCENT AUTO 74 % (41-73); Platelet Count 103 K/mm3 (150-400); RDW Coefficient Variation 17.2 % (11.7-14.2); Red Blood Cell Count 3.16 M/mm3 (4.30-5.90); White Blood Cell Count 6.52 K/mm3 (4.00-11.30)
[2022-03-14 06:55] LABS: Albumin, Blood 3.2 g/dL (3.4-5.0); Anion Gap 9 mmol/L (6-16); Blood Urea Nitrogen 40 mg/dL (8-24); Bun/Creatinine Ratio 7.8 (12.0-20.0); CO2, Blood 31 mmol/L (21-32); Calcium, Blood 9.4 mg/dL (8.5-10.1); Chloride, Blood 99 mmol/L (98-108); Glomerular Filtration Rate 12 (60-); Glucose, Blood 95 mg/dL (70-99); Magnesium, Blood 2.2 mg/dL (1.6-2.4); Phosphorus, Blood 4.1 mg/dL (2.5-4.9); Potassium, Blood 4.4 mmol/L (3.5-5.5); Sodium, Blood 139 mmol/L (136-145)
[2022-03-14] MEDS ORDERED: LEVFLO500 PO (14:09)
[2022-03-14] MEDS ORDERED: VISBIOME 112.51 EACH PO (14:10)
--- NOTE | 2022-03-14 16:22 | NUR ---
PT DISCHARGED THE PT VERBALIZED UNDERSATANDING OF THE DC INSTRUCTIONS. THE PT APPEARED TO BE BREATHING EASILY ON RA AT THE TIME OF DC. THE PTS SBP WAS 89 AFTER TAKING HIS NOON MIDODRINE. PT REPORTED NO SYMPTOMS OF DIZZINESS OR LIGHT HEADEDNESS. PT HAS CHRONIC LOW BP. A CALL WAS MADE TO WHO AGREED TO LET THE PT GO PER PTS REQUEST, A RECOMMENDATION TO INCREASE THE PTS MIDODRINE WOULD BE MADE. PT WAS TRANSFERED VIA WHEELCHAIR ACCOMPANIED BY FAMILY. PTS PRESCIPTIONS WERE FAXED TO [facility] PER HIS REQUEST
== END 2022-03-14 15:30 | disposition home or self-care (01) ==
LOC: ER 22:02 → MEDS 22:03
PROVIDERS: Family Medicine; Internal Medicine Nephrology; Physician Assistant; Student in an Organized Health Care Education/Training Program; ADMIT Family Medicine
DX: E87.5 Hyperkalemia (principal); E11.40 Type 2 diabetes mellitus with diabetic neuropathy, unspecified; E11.22 Type 2 diabetes mellitus with diabetic chronic kidney disease; N18.6 End stage renal disease; G47.33 Obstructive sleep apnea (adult) (pediatric); I50.22 Chronic systolic (congestive) heart failure; I13.0 Hypertensive heart and chronic kidney disease with heart failure and stage 1 through stage 4 chronic kidney disease, or unspecified chronic kidney disease; I48.91 Unspecified atrial fibrillation; G47.00 Insomnia, unspecified; Z20.822 Contact with and (suspected) exposure to COVID-19
CPT/HCPCS: 0241U; 36415; 71046; 80053; 80069; 82803; 82947; 83735; 83880; 84145; 85025; 93005; 93010; 94640; 94644; 94660; 94664; 94762; 96365; 96372; 96375; 99285-25; A9270; G0257; G0378; J0881; J1644; J1815; J1956; J7799

== ENCOUNTER → 2022-04-04 | Outpatient (CLI) | payer MEDICARE, BC ==
[~2022-04-04] MED LIST changes: +COMBIVENT RESPIM4 G1 INH; +DULO30 PO; +ESZO2 PO; +GABA300 PO; +LEVFLO500 PO; +MIRTAZAPINE7.5 M1 PO; +QVAR REDIHALE10.6 G2 INH; +RENAL VITAMIN0.8 MG PO; +TEMA30 PO
== END ==
LOC: LAB 09:20 → LAB SHORT 09:20
DX: S61.205D Unspecified open wound of left ring finger without damage to nail, subsequent encounter (principal); Z98.890 Other specified postprocedural states
CPT/HCPCS: 87070; 87075; 87205

== ENCOUNTER 2022-09-20 02:10 | Emergency (ER) | payer OTHER ==
[~2022-09-20] VITALS: Ht 188 cm; Wt 95.2 kg
[2022-09-20 07:15] VITALS: BP 112/78
[2022-09-20] MEDS ORDERED: CEPH500 PO (07:28)
== END 2022-09-20 07:36 | disposition home or self-care (01) ==
LOC: ER 02:10
DX: S91.115A Laceration without foreign body of left lesser toe(s) without damage to nail, initial encounter (principal); X58.XXXA Exposure to other specified factors, initial encounter; E11.42 Type 2 diabetes mellitus with diabetic polyneuropathy; I13.2 Hypertensive heart and chronic kidney disease with heart failure and with stage 5 chronic kidney disease, or end stage renal disease; E11.22 Type 2 diabetes mellitus with diabetic chronic kidney disease; N18.6 End stage renal disease; I50.9 Heart failure, unspecified; Z99.2 Dependence on renal dialysis; Z79.899 Other long term (current) drug therapy
CPT/HCPCS: 12041; 73660; 99283-25

== ENCOUNTER 2022-09-25 00:46 | Day surgery (SDC) | payer OTHER | END 2022-09-25 22:56 | disposition home or self-care (01) | LOC: WOUND 00:46 | DX: E11.621 Type 2 diabetes mellitus with foot ulcer (principal); L97.522 Non-pressure chronic ulcer of other part of left foot with fat layer exposed; E11.42 Type 2 diabetes mellitus with diabetic polyneuropathy; E78.5 Hyperlipidemia, unspecified; E11.22 Type 2 diabetes mellitus with diabetic chronic kidney disease; N18.6 End stage renal disease; I48.91 Unspecified atrial fibrillation; I50.9 Heart failure, unspecified; I13.2 Hypertensive heart and chronic kidney disease with heart failure and with stage 5 chronic kidney disease, or end stage renal disease; Z89.422 Acquired absence of other left toe(s); I87.313 Chronic venous hypertension (idiopathic) with ulcer of bilateral lower extremity; I87.2 Venous insufficiency (chronic) (peripheral); E11.622 Type 2 diabetes mellitus with other skin ulcer; L97.822 Non-pressure chronic ulcer of other part of left lower leg with fat layer exposed; L97.322 Non-pressure chronic ulcer of left ankle with fat layer exposed | CPT/HCPCS: G0463 ==

== ENCOUNTER 2022-11-01 05:30 | Day surgery (SDC) | payer OTHER | END 2022-11-01 22:44 | disposition home or self-care (01) | LOC: WOUND 05:30 | DX: E11.622 Type 2 diabetes mellitus with other skin ulcer (principal); L97.509 Non-pressure chronic ulcer of other part of unspecified foot with unspecified severity; L97.508 Non-pressure chronic ulcer of other part of unspecified foot with other specified severity; I87.313 Chronic venous hypertension (idiopathic) with ulcer of bilateral lower extremity; E11.21 Type 2 diabetes mellitus with diabetic nephropathy; I87.2 Venous insufficiency (chronic) (peripheral); I73.9 Peripheral vascular disease, unspecified; Z68.31 Body mass index [BMI] 31.0-31.9, adult | CPT/HCPCS: G0463 ==

== ENCOUNTER 2022-11-03 09:39 | Observation (INO) | payer OTHER ==
[~2022-11-03] VITALS: Ht 182.9 cm; Wt 92.2 kg
[2022-11-03 10:22] LABS: BASOPHILS ABSOLUTE AUTO 0.05 K/mm3 (0.00-0.23); BASOPHILS PERCENT AUTO 0 % (0-2); EOSINOPHILS PERCENT AUTO 0 % (0-6); IMMATURE GRAN ABSOLUTE AUTO 0.64 K/mm3 (0.00-0.10); IMMATURE GRAN PERCENT AUTO 2 % (0-1); LYMPHOCYTES ABSOLUTE AUTO 0.57 K/mm3 (0.84-5.20); LYMPHOCYTES PERCENT AUTO 2 % (21-46); MONOCYTES PERCENT AUTO 5 % (4-13); Mean Corpuscular HGB 32.4 pg (26.0-34.0); Mean Corpuscular HGB Conc 33.3 g/dL (31.5-36.5); Mean Corpuscular Volume 97 fL (80-100); Mean Platelet Volume 11.6 fL (9.1-12.4); NEUTROPHILS ABSOLUTE AUTO 26.86 K/mm3 (1.96-9.15); NEUTROPHILS PERCENT AUTO 90 % (41-73); Platelet Count 111 K/mm3 (150-400); RDW Coefficient Variation 15.2 % (11.7-14.2); RDW Standard Deviation 53.8 fL (35.1-46.3); White Blood Cell Count 29.72 K/mm3 (4.00-11.30)
[2022-11-03 10:34] LABS: Albumin, Blood 3.1 g/dL (3.4-5.0); Albumin/Globulin Ratio 0.8 (0.8-1.8); Bilirubin, Total 0.7 mg/dL (0.1-1.0); Bun/Creatinine Ratio 7.6 (12.0-20.0); Creatinine, Blood 5.24 mg/dL (0.60-1.20); Globulin, Blood 3.8 g/dL (2.2-4.0); Potassium, Blood 4.8 mmol/L (3.5-5.5); Total Protein, Blood 6.9 g/dL (6.4-8.2)
[2022-11-03 10:52] LABS: BAND PERCENT MAN 5 % (0-8); BASOPHILS PERCENT MAN 0 % (0-2); EOSINOPHILS PERCENT MAN 0 % (0-6); LYMPHOCYTES ABSOLUTE MAN 1.18 K/mm3 (0.84-5.20); LYMPHOCYTES PERCENT MAN 4 % (21-46); MONOCYTES ABSOLUTE MAN 0.29 K/mm3 (0.16-1.47); MONOCYTES PERCENT MAN 1 % (4-13); NEUTROPHILS ABSOLUTE MAN 28.23 K/mm3 (1.96-9.15); SEG NEUTROPHILS PERCENT MAN 90 % (41-73); TOTAL CELLS COUNTED 100
--- NOTE | 2022-11-03 12:46 | NUR ---
ED Palliative Care Consult 67 year old male with a history of CHF, ESRD, Episodic Bradycardia, AFIB, Chronic DVT, Sleep Apnea, HTN, BPH, and Thoracic Aneurysm. Spoke with Dr Hennessy and discussed case. Pt came in and was hypotensive and hypoxic. Initially Pt appeared to have a poor clinical picture but since has improved. Dr Hennessy did call and speak with and briefly. Pt to be admitted. Pt resting on gurney upon arrival. Pt A&OX4. Brief discussion of possible plan to be admitted. Pt expresses mild frustration stating "I hate being at the hospital, I can't sleep here, and their CPAP masks don't fit me". He also states "I can't afford the hospital bills". Continued therapeutic listening as Pt reports retiring about a year ago and his just recently retired. He states "my didn't sign up for this and her senior care shouldn't be wasted on my care". Pt reports feeling that he is a burden. Continued therapeutic listening. Engaged in brief gentle discussion regarding planning for the future as disease process progresses. Engaged in therapeutic discussion regarding code status wishe. Educated on life sustaining treatments including risks and implications to CPR. Pt reports he will consider his wishes. Ended visit to allow Pt to rest. Received verbal permission from Pt to call his and review plan and relay conversation. Spoke with his Primary ED RN and discussed case. Called and spoke with Pt's [facility]. Provided update and plan for possible admission. Relayed conversation that took place regarding planning for the future and potentially considering hospice in the future. [facility] expresses appreciation and reports no concerns at this time. Palliative Care will remain available
[2022-11-03 15:20] VITALS: BP 114/73
--- NOTE | 2022-11-03 18:11 | NUR ---
ER ADMIT Patient has WBC 29, trending trops, lactate of 2.2. IV Vancomycin administred. BLE old healing ulcers, photos taken and documented in chart. Patient reports he sees wound clinic outpatient. Telemetry ordered, Afib rhythm @ 76. Patient c/o chronic pain, usually smokes marijuana at home to managed pain. Patient denies ignition sources on personal, reviewed smoking policy, patient verbalized understanding. VSS. Will continue plan of care.
[2022-11-03 20:27] VITALS: BP 86/60
[2022-11-04] VITALS (13 sets, daily range): BP systolic 83–121; BP diastolic 44–73
--- NOTE | 2022-11-04 03:34 | NUR ---
REPORT RECIEVED PT A/O X1 TO 2 PULLING AT LINES VERY UNCOMFORTABLE, PULLED IV OUT SO I REPLACED WITH 20G TO RIGHT FA, EVEN THOUGH PT CONFUSED PT COOPRATIVE AND REORIENTED QUICKLY. PT TREATED FOR MILD FEVER, TROPONIN CALLED INTO MD.
--- NOTE | 2022-11-04 05:50 | NUR ---
SHIFT SUMMARY VERY RESTLESS NIGHT FOR PT COULD NOT SLEEP PULLED ON ALL CORDS EVEN PULLED IVOUT WHICH I REPLACED WITH A 20G IN HIS RIGHT FA. TYLENOL WAS GIVEN FOR A TEMP OF 100.5 AND TROPS WERE CALLED INTO THE MD. PT FEELS MUCH BETTER AND IS NOW OF CLEAR MIND WATCHING TV BECAUSE HE CANT SLEEP CONFUSION HAS SEEM TO HAVE GONE. WILL CONT MONITORING
[2022-11-04 07:01] LABS: BASOPHILS ABSOLUTE AUTO 0.06 K/mm3 (0.00-0.23); BASOPHILS PERCENT AUTO 0 % (0-2); EOSINOPHILS ABSOLUTE AUTO 0.03 K/mm3 (0.00-0.68); EOSINOPHILS PERCENT AUTO 0 % (0-6); Hematocrit 35.1 % (37.0-53.0); Hemoglobin 11.4 g/dL (13.5-17.5); IMMATURE GRAN ABSOLUTE AUTO 0.08 K/mm3 (0.00-0.10); IMMATURE GRAN PERCENT AUTO 1 % (0-1); LYMPHOCYTES ABSOLUTE AUTO 0.75 K/mm3 (0.84-5.20); LYMPHOCYTES PERCENT AUTO 5 % (21-46); MONOCYTES ABSOLUTE AUTO 1.03 K/mm3 (0.16-1.47); MONOCYTES PERCENT AUTO 6 % (4-13); Mean Corpuscular HGB 32.2 pg (26.0-34.0); Mean Corpuscular HGB Conc 32.5 g/dL (31.5-36.5); Mean Corpuscular Volume 99 fL (80-100); Mean Platelet Volume 11.8 fL (9.1-12.4); NEUTROPHILS ABSOLUTE AUTO 14.55 K/mm3 (1.96-9.15); NEUTROPHILS PERCENT AUTO 88 % (41-73); Platelet Count 75 K/mm3 (150-400); RDW Standard Deviation 54.3 fL (35.1-46.3); Red Blood Cell Count 3.54 M/mm3 (4.30-5.90)
[2022-11-04 07:25] LABS: Albumin, Blood 2.9 g/dL (3.4-5.0); Albumin/Globulin Ratio 0.8 (0.8-1.8); Bilirubin, Total 0.6 mg/dL (0.1-1.0); Bun/Creatinine Ratio 8.7 (12.0-20.0); Calcium, Blood 9.7 mg/dL (8.5-10.1); Creatinine, Blood 6.31 mg/dL (0.60-1.20); Globulin, Blood 3.7 g/dL (2.2-4.0); Potassium, Blood 5.2 mmol/L (3.5-5.5); Total Protein, Blood 6.6 g/dL (6.4-8.2)
[2022-11-04] MEDS ORDERED: BACTRIM 400-801 EACH PO (14:44)
--- NOTE | 2022-11-04 16:13 | NUR ---
Patient had dialysis this morning. MD assessed patient and patient asking to go home, he does not want to stay over night. Administred IV Vancomycin, and discharged patient home with PO ABX. Vitals stable, no signs of confusion observed. Patient left unit at 1530.
== END 2022-11-04 16:41 | disposition home or self-care (01) ==
LOC: ER 09:39 → MEDS 12:24 → ER 12:24 → MEDS 14:46
PROVIDERS: Emergency Medicine; ADMIT Internal Medicine
DX: A41.9 Sepsis, unspecified organism (principal); E88.09 Other disorders of plasma-protein metabolism, not elsewhere classified; E87.70 Fluid overload, unspecified; S81.802A Unspecified open wound, left lower leg, initial encounter; S81.801A Unspecified open wound, right lower leg, initial encounter; X58.XXXA Exposure to other specified factors, initial encounter; I13.0 Hypertensive heart and chronic kidney disease with heart failure and stage 1 through stage 4 chronic kidney disease, or unspecified chronic kidney disease; N18.6 End stage renal disease; I50.20 Unspecified systolic (congestive) heart failure; D64.9 Anemia, unspecified; J44.9 Chronic obstructive pulmonary disease, unspecified; I48.91 Unspecified atrial fibrillation; G47.33 Obstructive sleep apnea (adult) (pediatric); Z79.899 Other long term (current) drug therapy
CPT/HCPCS: 36415; 70450; 71046; 73701; 76770; 80053; 82947; 83605; 84484; 85025; 85651; 86140; 87040; 93005; 93010; 94640; 94664; 94760; 99285-25; A9270; G0257; J1644; J3370; J7030; J7050; Q9967

== ENCOUNTER 2022-11-08 02:51 | Day surgery (SDC) | payer OTHER ==
[~2022-11-08 02:51] MED LIST changes: +BACTRIM 400-801 EACH PO
== END 2022-11-08 22:52 | disposition home or self-care (01) ==
LOC: WOUND 02:51
DX: E11.621 Type 2 diabetes mellitus with foot ulcer (principal); I87.2 Venous insufficiency (chronic) (peripheral); L97.519 Non-pressure chronic ulcer of other part of right foot with unspecified severity; E11.622 Type 2 diabetes mellitus with other skin ulcer; L97.812 Non-pressure chronic ulcer of other part of right lower leg with fat layer exposed; L97.412 Non-pressure chronic ulcer of right heel and midfoot with fat layer exposed; I87.313 Chronic venous hypertension (idiopathic) with ulcer of bilateral lower extremity; E11.21 Type 2 diabetes mellitus with diabetic nephropathy
CPT/HCPCS: G0463

== ENCOUNTER 2022-11-15 01:19 | Day surgery (SDC) | payer OTHER | END 2022-11-15 22:47 | disposition home or self-care (01) | LOC: WOUND 01:19 | DX: I87.313 Chronic venous hypertension (idiopathic) with ulcer of bilateral lower extremity (principal); E11.621 Type 2 diabetes mellitus with foot ulcer; E11.622 Type 2 diabetes mellitus with other skin ulcer; L97.519 Non-pressure chronic ulcer of other part of right foot with unspecified severity; L97.912 Non-pressure chronic ulcer of unspecified part of right lower leg with fat layer exposed; L97.525 Non-pressure chronic ulcer of other part of left foot with muscle involvement without evidence of necrosis; L89.611 Pressure ulcer of right heel, stage 1; E11.51 Type 2 diabetes mellitus with diabetic peripheral angiopathy without gangrene; E11.42 Type 2 diabetes mellitus with diabetic polyneuropathy; E11.22 Type 2 diabetes mellitus with diabetic chronic kidney disease; I13.2 Hypertensive heart and chronic kidney disease with heart failure and with stage 5 chronic kidney disease, or end stage renal disease; N18.6 End stage renal disease; I48.91 Unspecified atrial fibrillation; E78.5 Hyperlipidemia, unspecified; Z86.31 Personal history of diabetic foot ulcer; Z89.422 Acquired absence of other left toe(s) | CPT/HCPCS: G0463 ==

== ENCOUNTER 2022-11-24 01:39 | Day surgery (SDC) | payer OTHER | END 2022-11-24 22:48 | disposition home or self-care (01) | LOC: WOUND 01:39 | DX: E11.622 Type 2 diabetes mellitus with other skin ulcer (principal); L97.509 Non-pressure chronic ulcer of other part of unspecified foot with unspecified severity; L97.508 Non-pressure chronic ulcer of other part of unspecified foot with other specified severity; I87.313 Chronic venous hypertension (idiopathic) with ulcer of bilateral lower extremity; E11.21 Type 2 diabetes mellitus with diabetic nephropathy; E11.29 Type 2 diabetes mellitus with other diabetic kidney complication; I87.2 Venous insufficiency (chronic) (peripheral); E11.51 Type 2 diabetes mellitus with diabetic peripheral angiopathy without gangrene; Z86.31 Personal history of diabetic foot ulcer; I13.2 Hypertensive heart and chronic kidney disease with heart failure and with stage 5 chronic kidney disease, or end stage renal disease; E11.22 Type 2 diabetes mellitus with diabetic chronic kidney disease; N18.6 End stage renal disease; I50.9 Heart failure, unspecified; I48.91 Unspecified atrial fibrillation | CPT/HCPCS: G0463 ==

== ENCOUNTER 2022-12-06 04:41 | Day surgery (SDC) | payer OTHER | END 2022-12-06 22:47 | disposition home or self-care (01) | LOC: WOUND 04:41 | DX: E11.621 Type 2 diabetes mellitus with foot ulcer (principal); L97.525 Non-pressure chronic ulcer of other part of left foot with muscle involvement without evidence of necrosis; E11.622 Type 2 diabetes mellitus with other skin ulcer; L97.829 Non-pressure chronic ulcer of other part of left lower leg with unspecified severity; I87.313 Chronic venous hypertension (idiopathic) with ulcer of bilateral lower extremity; E11.51 Type 2 diabetes mellitus with diabetic peripheral angiopathy without gangrene; E11.42 Type 2 diabetes mellitus with diabetic polyneuropathy; E11.22 Type 2 diabetes mellitus with diabetic chronic kidney disease; I13.2 Hypertensive heart and chronic kidney disease with heart failure and with stage 5 chronic kidney disease, or end stage renal disease; N18.6 End stage renal disease; E78.5 Hyperlipidemia, unspecified; I48.91 Unspecified atrial fibrillation; Z86.31 Personal history of diabetic foot ulcer | CPT/HCPCS: G0463 ==

== ENCOUNTER 2022-12-22 00:32 | Day surgery (SDC) | payer OTHER | END 2022-12-22 22:47 | disposition home or self-care (01) | LOC: WOUND 00:32 | DX: E11.621 Type 2 diabetes mellitus with foot ulcer (principal); L97.522 Non-pressure chronic ulcer of other part of left foot with fat layer exposed; S80.812A Abrasion, left lower leg, initial encounter; I87.313 Chronic venous hypertension (idiopathic) with ulcer of bilateral lower extremity; E11.21 Type 2 diabetes mellitus with diabetic nephropathy; E78.5 Hyperlipidemia, unspecified; I13.2 Hypertensive heart and chronic kidney disease with heart failure and with stage 5 chronic kidney disease, or end stage renal disease; E11.22 Type 2 diabetes mellitus with diabetic chronic kidney disease; N18.6 End stage renal disease; I50.9 Heart failure, unspecified; I48.91 Unspecified atrial fibrillation; X58.XXXA Exposure to other specified factors, initial encounter; Z89.422 Acquired absence of other left toe(s) | CPT/HCPCS: G0463 ==

== ENCOUNTER 2022-12-27 02:32 | Day surgery (SDC) | payer OTHER | END 2022-12-27 23:21 | disposition home or self-care (01) | LOC: WOUND 02:32 | DX: E11.621 Type 2 diabetes mellitus with foot ulcer (principal); L97.522 Non-pressure chronic ulcer of other part of left foot with fat layer exposed; I87.313 Chronic venous hypertension (idiopathic) with ulcer of bilateral lower extremity; E11.21 Type 2 diabetes mellitus with diabetic nephropathy; Z86.31 Personal history of diabetic foot ulcer | CPT/HCPCS: G0463 ==

== ENCOUNTER 2023-01-03 05:03 | Day surgery (SDC) | payer OTHER | END 2023-01-03 23:05 | disposition home or self-care (01) | LOC: WOUND 05:03 | DX: E11.621 Type 2 diabetes mellitus with foot ulcer (principal); L97.522 Non-pressure chronic ulcer of other part of left foot with fat layer exposed; E11.22 Type 2 diabetes mellitus with diabetic chronic kidney disease; I13.2 Hypertensive heart and chronic kidney disease with heart failure and with stage 5 chronic kidney disease, or end stage renal disease; I50.9 Heart failure, unspecified; N18.6 End stage renal disease; E11.42 Type 2 diabetes mellitus with diabetic polyneuropathy; G47.30 Sleep apnea, unspecified; E78.5 Hyperlipidemia, unspecified; I48.91 Unspecified atrial fibrillation; I87.313 Chronic venous hypertension (idiopathic) with ulcer of bilateral lower extremity; E11.51 Type 2 diabetes mellitus with diabetic peripheral angiopathy without gangrene; Z89.422 Acquired absence of other left toe(s); Z86.31 Personal history of diabetic foot ulcer | CPT/HCPCS: G0463 ==

== ENCOUNTER 2023-01-10 02:32 | Day surgery (SDC) | payer OTHER | END 2023-01-10 22:49 | disposition home or self-care (01) | LOC: WOUND 02:32 | DX: E11.621 Type 2 diabetes mellitus with foot ulcer (principal); L97.522 Non-pressure chronic ulcer of other part of left foot with fat layer exposed; I87.2 Venous insufficiency (chronic) (peripheral); E11.622 Type 2 diabetes mellitus with other skin ulcer; L97.512 Non-pressure chronic ulcer of other part of right foot with fat layer exposed; I87.313 Chronic venous hypertension (idiopathic) with ulcer of bilateral lower extremity; E11.51 Type 2 diabetes mellitus with diabetic peripheral angiopathy without gangrene | CPT/HCPCS: G0463 ==

== ENCOUNTER 2023-01-17 04:43 | Day surgery (SDC) | payer OTHER | END 2023-01-17 23:15 | disposition home or self-care (01) | LOC: WOUND 04:43 | DX: E11.621 Type 2 diabetes mellitus with foot ulcer (principal); L97.522 Non-pressure chronic ulcer of other part of left foot with fat layer exposed; E11.622 Type 2 diabetes mellitus with other skin ulcer; L97.812 Non-pressure chronic ulcer of other part of right lower leg with fat layer exposed; L97.509 Non-pressure chronic ulcer of other part of unspecified foot with unspecified severity; L97.508 Non-pressure chronic ulcer of other part of unspecified foot with other specified severity; I87.313 Chronic venous hypertension (idiopathic) with ulcer of bilateral lower extremity; E11.21 Type 2 diabetes mellitus with diabetic nephropathy; E11.29 Type 2 diabetes mellitus with other diabetic kidney complication; I87.2 Venous insufficiency (chronic) (peripheral); E11.51 Type 2 diabetes mellitus with diabetic peripheral angiopathy without gangrene | CPT/HCPCS: G0463 ==

== ENCOUNTER 2023-01-24 01:56 | Day surgery (SDC) | payer OTHER | END 2023-01-24 22:53 | disposition home or self-care (01) | LOC: WOUND 01:56 | DX: E11.621 Type 2 diabetes mellitus with foot ulcer (principal); L97.522 Non-pressure chronic ulcer of other part of left foot with fat layer exposed; E11.622 Type 2 diabetes mellitus with other skin ulcer; L97.822 Non-pressure chronic ulcer of other part of left lower leg with fat layer exposed; E11.42 Type 2 diabetes mellitus with diabetic polyneuropathy; E78.5 Hyperlipidemia, unspecified; I13.2 Hypertensive heart and chronic kidney disease with heart failure and with stage 5 chronic kidney disease, or end stage renal disease; E11.22 Type 2 diabetes mellitus with diabetic chronic kidney disease; N18.6 End stage renal disease; I50.9 Heart failure, unspecified; E11.51 Type 2 diabetes mellitus with diabetic peripheral angiopathy without gangrene; I87.313 Chronic venous hypertension (idiopathic) with ulcer of bilateral lower extremity; Z86.31 Personal history of diabetic foot ulcer | CPT/HCPCS: G0463 ==

== ENCOUNTER 2023-01-31 06:09 | Day surgery (SDC) | payer OTHER | END 2023-01-31 22:59 | disposition home or self-care (01) | LOC: WOUND 06:09 | DX: E11.621 Type 2 diabetes mellitus with foot ulcer (principal); L97.522 Non-pressure chronic ulcer of other part of left foot with fat layer exposed; I87.313 Chronic venous hypertension (idiopathic) with ulcer of bilateral lower extremity; E11.622 Type 2 diabetes mellitus with other skin ulcer; E11.42 Type 2 diabetes mellitus with diabetic polyneuropathy; E78.5 Hyperlipidemia, unspecified; E11.22 Type 2 diabetes mellitus with diabetic chronic kidney disease; I13.2 Hypertensive heart and chronic kidney disease with heart failure and with stage 5 chronic kidney disease, or end stage renal disease; I50.9 Heart failure, unspecified; N18.6 End stage renal disease; I48.91 Unspecified atrial fibrillation; E11.51 Type 2 diabetes mellitus with diabetic peripheral angiopathy without gangrene | CPT/HCPCS: G0463 ==

== ENCOUNTER 2023-02-14 01:53 | Day surgery (SDC) | payer OTHER | END 2023-02-14 22:36 | disposition home or self-care (01) | LOC: WOUND 01:53 | DX: E11.621 Type 2 diabetes mellitus with foot ulcer (principal); L97.522 Non-pressure chronic ulcer of other part of left foot with fat layer exposed; E11.22 Type 2 diabetes mellitus with diabetic chronic kidney disease; I13.2 Hypertensive heart and chronic kidney disease with heart failure and with stage 5 chronic kidney disease, or end stage renal disease; I50.9 Heart failure, unspecified; N18.6 End stage renal disease; I48.91 Unspecified atrial fibrillation; E78.5 Hyperlipidemia, unspecified; I87.312 Chronic venous hypertension (idiopathic) with ulcer of left lower extremity; E11.51 Type 2 diabetes mellitus with diabetic peripheral angiopathy without gangrene | CPT/HCPCS: G0463 ==

== ENCOUNTER 2023-02-21 02:11 | Day surgery (SDC) | payer OTHER | END 2023-02-21 22:45 | disposition home or self-care (01) | LOC: WOUND 02:11 | DX: E11.621 Type 2 diabetes mellitus with foot ulcer (principal); L97.529 Non-pressure chronic ulcer of other part of left foot with unspecified severity; G47.30 Sleep apnea, unspecified; E11.42 Type 2 diabetes mellitus with diabetic polyneuropathy; E11.22 Type 2 diabetes mellitus with diabetic chronic kidney disease; I13.2 Hypertensive heart and chronic kidney disease with heart failure and with stage 5 chronic kidney disease, or end stage renal disease; I50.9 Heart failure, unspecified; N18.6 End stage renal disease; I48.91 Unspecified atrial fibrillation; E11.622 Type 2 diabetes mellitus with other skin ulcer; I87.313 Chronic venous hypertension (idiopathic) with ulcer of bilateral lower extremity; E11.51 Type 2 diabetes mellitus with diabetic peripheral angiopathy without gangrene; Z86.31 Personal history of diabetic foot ulcer | CPT/HCPCS: G0463 ==

== ENCOUNTER 2023-04-17 15:15 | Emergency (ER) | payer OTHER ==
[~2023-04-17] VITALS: Ht 188 cm; Wt 82.1 kg
[2023-04-17 16:04] LABS: BASOPHILS ABSOLUTE AUTO 0.05 K/mm3 (0.00-0.23); BASOPHILS PERCENT AUTO 1 % (0-2); EOSINOPHILS ABSOLUTE AUTO 0.12 K/mm3 (0.00-0.68); EOSINOPHILS PERCENT AUTO 2 % (0-6); Hematocrit 34.8 % (37.0-53.0); IMMATURE GRAN ABSOLUTE AUTO 0.01 K/mm3 (0.00-0.10); IMMATURE GRAN PERCENT AUTO 0 % (0-1); LYMPHOCYTES ABSOLUTE AUTO 0.81 K/mm3 (0.84-5.20); LYMPHOCYTES PERCENT AUTO 14 % (21-46); MONOCYTES ABSOLUTE AUTO 0.72 K/mm3 (0.16-1.47); MONOCYTES PERCENT AUTO 12 % (4-13); Mean Corpuscular HGB 32.5 pg (26.0-34.0); Mean Corpuscular HGB Conc 34.5 g/dL (31.5-36.5); Mean Corpuscular Volume 94 fL (80-100); Mean Platelet Volume 11.8 fL (9.1-12.4); NEUTROPHILS ABSOLUTE AUTO 4.13 K/mm3 (1.96-9.15); NEUTROPHILS PERCENT AUTO 71 % (41-73); Platelet Count 93 K/mm3 (150-400); RDW Coefficient Variation 13.4 % (11.7-14.2); RDW Standard Deviation 46.2 fL (35.1-46.3); Red Blood Cell Count 3.69 M/mm3 (4.30-5.90); White Blood Cell Count 5.84 K/mm3 (4.00-11.30)
[2023-04-17] MEDS ORDERED: NORTRIPTYLINE H1012 PO (16:07)
[2023-04-17 16:12] LABS: Albumin, Blood 3.5 g/dL (3.4-5.0); Bilirubin, Total 0.5 mg/dL (0.1-1.0); Bun/Creatinine Ratio 6.5 (12.0-20.0); Calcium, Blood 10.1 mg/dL (8.5-10.1); Creatinine, Blood 5.85 mg/dL (0.60-1.20); Globulin, Blood 3.4 g/dL (2.2-4.0); Potassium, Blood 4.1 mmol/L (3.5-5.5); Total Protein, Blood 6.9 g/dL (6.4-8.2)
[2023-04-17 16:44] VITALS: BP 95/54
== END 2023-04-17 16:54 | disposition home or self-care (01) ==
LOC: ER 15:15
PROVIDERS: Physician Assistant
DX: N50.82 Scrotal pain (principal); I13.2 Hypertensive heart and chronic kidney disease with heart failure and with stage 5 chronic kidney disease, or end stage renal disease; E11.22 Type 2 diabetes mellitus with diabetic chronic kidney disease; N18.6 End stage renal disease; I50.9 Heart failure, unspecified; E11.40 Type 2 diabetes mellitus with diabetic neuropathy, unspecified; Z99.2 Dependence on renal dialysis; Z79.899 Other long term (current) drug therapy
CPT/HCPCS: 80053; 85025; 96374; 99283-25; J1170

== ENCOUNTER 2023-10-28 07:23 | Emergency (ER) | payer OTHER ==
[~2023-10-28] VITALS: Ht 188 cm; Wt 81.7 kg
[~2023-10-28 07:23] MED LIST changes: +NORTRIPTYLINE H1012 PO
[2023-10-28] MEDS ORDERED: NS 1,000 ML IV ONE (07:57)
[2023-10-28] MEDS ORDERED: Midodrine 5 MG Tab PO ONE (08:05)
[2023-10-28] MEDS ORDERED: NS 1,000 ML IV SCH (08:30)
[2023-10-28 09:42] VITALS: BP 82/55
[2023-10-29] MEDS ORDERED: ASPI81CH PO (10:04)
[2023-10-29] MEDS ORDERED: ATOR10 PO (10:04)
[2023-10-29] MEDS ORDERED: MERIBIN5 M1 PO (10:04)
[2023-10-29] MEDS ORDERED: Voltaren100 GM TOP (10:05)
[2023-10-29] MEDS ORDERED: VITAMIN B-122000 MC1 PO (10:05)
[2023-10-29] MEDS ORDERED: Rena-Vite Tabl0.8 MG PO (10:06)
[2023-10-29] MEDS ORDERED: LOKELMA10 GM PO (10:06)
[2023-10-29] MEDS ORDERED: Flomax0.4 MG PO (10:06)
[2023-10-29] MEDS ORDERED: COMBIVENT RESPIM4 G1 INH (10:06)
== END 2023-10-28 10:50 | disposition home or self-care (01) ==
LOC: ER 07:23
DX: S01.01XA Laceration without foreign body of scalp, initial encounter (principal); E11.22 Type 2 diabetes mellitus with diabetic chronic kidney disease; I12.9 Hypertensive chronic kidney disease with stage 1 through stage 4 chronic kidney disease, or unspecified chronic kidney disease; N18.9 Chronic kidney disease, unspecified; W06.XXXA Fall from bed, initial encounter; Z87.891 Personal history of nicotine dependence
CPT/HCPCS: 12004; 70450; 99284-25; A9270; J7030

== ENCOUNTER 2023-10-28 21:32 | Inpatient (IN) | payer OTHER ==
[~2023-10-28] VITALS: Ht 188 cm; Wt 85.0 kg
[2023-10-28] MEDS ORDERED: Midodrine 5 MG Tab PO ONE (22:20)
[2023-10-28] MEDS ORDERED: NS 1,000 ML IV SCH (22:20)
[2023-10-28 22:29] LABS: BASOPHILS ABSOLUTE AUTO 0.05 K/mm3 (0.00-0.23); BASOPHILS PERCENT AUTO 1 % (0-2); EOSINOPHILS ABSOLUTE AUTO 0.12 K/mm3 (0.00-0.68); EOSINOPHILS PERCENT AUTO 2 % (0-6); Hematocrit 29.5 % (37.0-53.0); Hemoglobin 9.3 g/dL (13.5-17.5); IMMATURE GRAN ABSOLUTE AUTO 0.02 K/mm3 (0.00-0.10); IMMATURE GRAN PERCENT AUTO 0 % (0-1); LYMPHOCYTES ABSOLUTE AUTO 0.86 K/mm3 (0.84-5.20); LYMPHOCYTES PERCENT AUTO 14 % (21-46); MONOCYTES ABSOLUTE AUTO 0.75 K/mm3 (0.16-1.47); MONOCYTES PERCENT AUTO 12 % (4-13); Mean Corpuscular HGB Conc 31.5 g/dL (31.5-36.5); Mean Corpuscular Volume 105 fL (80-100); NEUTROPHILS ABSOLUTE AUTO 4.37 K/mm3 (1.96-9.15); NEUTROPHILS PERCENT AUTO 71 % (41-73); Platelet Count 53 K/mm3 (150-400); RDW Coefficient Variation 18.3 % (11.7-14.2); Red Blood Cell Count 2.82 M/mm3 (4.30-5.90); White Blood Cell Count 6.17 K/mm3 (4.00-11.30)
[2023-10-28 22:34] LABS: Mean Platelet Volume 13.7 fL (9.1-12.4)
[2023-10-28 22:40] LABS: Albumin, Blood 2.9 g/dL (3.4-5.0); Bilirubin, Total 0.6 mg/dL (0.1-1.0); Bun/Creatinine Ratio 7.5 (12.0-20.0); Calcium, Blood 8.8 mg/dL (8.5-10.1); Creatinine, Blood 4.66 mg/dL (0.60-1.20); Potassium, Blood 4.9 mmol/L (3.5-5.5); Total Protein, Blood 5.9 g/dL (6.4-8.2)
[2023-10-29] MEDS ORDERED: Acetaminophen 325 MG TABLET PO PRN (07:40)
[2023-10-29 07:51] LABS: BASOPHILS ABSOLUTE AUTO 0.05 K/mm3 (0.00-0.23); BASOPHILS PERCENT AUTO 1 % (0-2); EOSINOPHILS ABSOLUTE AUTO 0.12 K/mm3 (0.00-0.68); EOSINOPHILS PERCENT AUTO 2 % (0-6); Hematocrit 31.3 % (37.0-53.0); Hemoglobin 9.8 g/dL (13.5-17.5); IMMATURE GRAN ABSOLUTE AUTO 0.01 K/mm3 (0.00-0.10); IMMATURE GRAN PERCENT AUTO 0 % (0-1); LYMPHOCYTES ABSOLUTE AUTO 0.93 K/mm3 (0.84-5.20); LYMPHOCYTES PERCENT AUTO 16 % (21-46); MONOCYTES ABSOLUTE AUTO 0.63 K/mm3 (0.16-1.47); MONOCYTES PERCENT AUTO 11 % (4-13); Mean Corpuscular HGB 33.2 pg (26.0-34.0); Mean Corpuscular HGB Conc 31.3 g/dL (31.5-36.5); Mean Corpuscular Volume 106 fL (80-100); NEUTROPHILS ABSOLUTE AUTO 3.96 K/mm3 (1.96-9.15); NEUTROPHILS PERCENT AUTO 69 % (41-73); RDW Coefficient Variation 18.4 % (11.7-14.2); RDW Standard Deviation 70.8 fL (35.1-46.3); Red Blood Cell Count 2.95 M/mm3 (4.30-5.90)
[2023-10-29 08:03] LABS: Anion Gap 12 mmol/L (3-11); Blood Urea Nitrogen 39 mg/dL (8-24); Bun/Creatinine Ratio 7.8 (12.0-20.0); CO2, Blood 30 mmol/L (21-32); Calcium, Blood 8.9 mg/dL (8.5-10.1); Chloride, Blood 102 mmol/L (98-108); Creatinine, Blood 4.97 mg/dL (0.60-1.20); Glomerular Filtration Rate 12 (60-); Glucose, Blood 103 mg/dL (70-99); Phosphorus, Blood 4.7 mg/dL (2.5-4.9); Potassium, Blood 4.7 mmol/L (3.5-5.5); Sodium, Blood 139 mmol/L (136-145)
[2023-10-29 08:15] LABS: Platelet Count 47 K/mm3 (150-400)
[2023-10-29] MEDS ORDERED: Enoxaparin 40 MG/0.4 ML SYR SC SCH (09:00)
[2023-10-29] MEDS ORDERED: Heparin Sodium,Porcine 5,000 UNIT/0.5 ML SDV SC SCH (09:00)
[2023-10-29] MEDS ORDERED: Midodrine 5 MG Tab PO SCH ×2 (09:00→13:00)
[2023-10-29] MEDS ORDERED: ATOR10 PO (10:04)
[2023-10-29] MEDS ORDERED: MERIBIN5 M1 PO (10:04)
[2023-10-29] MEDS ORDERED: ASPI81CH PO (10:04)
[2023-10-29] MEDS ORDERED: VITAMIN B-122000 MC1 PO (10:05)
[2023-10-29] MEDS ORDERED: Voltaren100 GM TOP (10:05)
[2023-10-29] MEDS ORDERED: COMBIVENT RESPIM4 G1 INH (10:06)
[2023-10-29] MEDS ORDERED: Rena-Vite Tabl0.8 MG PO (10:06)
[2023-10-29] MEDS ORDERED: Flomax0.4 MG PO (10:06)
[2023-10-29] MEDS ORDERED: LOKELMA10 GM PO (10:06)
--- NOTE | 2023-10-29 10:45 | NUR ---
ARRIVAL TO PCU: Report recieved from [place] [employer] TRAM LOADER. Patient arrived to PCU 10 via gurney and was slid to the bed with 4 people. He is alert and oriented x4, he states he has chronic neurpathy at home, the only thing that relieves it per the patient is Marajuana. He is in A-Fib with PVCs in the 60s, he denies chest pain or pressure. LS CTA, biox is high 90s on RA. BT+. He has a dialysis fistula to his left lower arm, +bruit/thrill, he states his normal dialysis days are tu,th, sat. His last HD was on sunday. He states he is mostly oliguric but voids., "every once and a while." Last BM was a couple of days ago. BP soft, MAP is in the 70s, he recieved some fluid and his home dose of Midodrine in the ER. When asked what brought him in he states he has been having syncopal episodes. He states, "I don't get dizzy, my legs just give out on me." He goes on to state his health has been gradually declining and now he is dependent on his for all his needs. He states he has a motorized wheelchair that he is not able to use due to his house being inaccessable-he has stairs. He also talks about not wanting to sell his house or move out because his isn't ready. Patient states, "I have no quality of life and I don't want to be a burden on the rest of my family." This RN talked with the patient about being DNR and the patient verbalizes wanting to look into hospice. I talked with the patient about the palliative care RN coming to speak with him. He denies other needs at this time. Call light in reach.
[2023-10-29] MEDS ORDERED: Darbepoetin Alfa in Polysorbat 25 MCG/0.42 ML Syringe SC SCH (16:00)
--- NOTE | 2023-10-29 16:00 | NUR ---
Care Conference: Met with pt and son Andrei in pt's room today. The patient is alert and oriented. He appears slightly jaundiced. He states he is struggling with "staying alive like a head in a jar," and stopping dialysis altogether. He mentioned there being some family dynamics as well, and I request we have a family meeting to further discuss his concerns that he also mentioned such as being a burden to his family. They are working on putting a time together that works for everyone.
[2023-10-29 17:09] VITALS: BP 83/54
--- NOTE | 2023-10-29 17:36 | NUR ---
Family Meeting with pt and 3 adult children this evening. The patient made it clear he is not ready to stop dialysis for his own sake, and that it is entirely because he feels he is a burden to his , who has her own severe health issues. The kids state they think their parents filed for medicaid a few years ago, but there was something in the banking that may have caused a denial, but they aren't sure. Encouraged the kids to talk with their mom, and see what options are available for paid caregivers, etc. The kids also state their mom is "stubborn" and wouldn't be willing to sell their current home and move into assisted living. They unfortunately have no real assets other than the house. The kids state they will speak with their mom. With pt's permission, I called his . She stated she doesn't feel good today and asked if we could discuss it another time. We agreed on discussion tomorrow instead. Will follow up with CM and pt's [facility] tomorrow.
--- NOTE | 2023-10-29 18:23 | NUR ---
Summary: Patient arrived to PCU 10 via gurney for hypotension and syncope. He is alert and oriented x4. He has chronic neuropahty. He has been in A-Fib wtih PVCs, he has been hypotensive with MAPs in the mid to low 60s-he is on midodrine and recieved a small fluid bolus in the emergency room. LS CTA, biox is WNL on RA. BT+. PPP, his BLE are cyanotic, purple with long cap refill. BLE are dry and scaly with multiple wounds. He is missing all but two toes on his left foot and is missing one on the right. He states he has chronic DVTs. He is a hemodialysis patient, last dialysis run was on sunday. He had an extensive converstaion with palliative care to discuss plan of care, see Radha GRIDER note. No other acute changes this shift. Will report to onccassandra RN.
[2023-10-29 18:44] VITALS: BP 77/67
[2023-10-29] MEDS ORDERED: Gabapentin 400 MG Cap PO SCH (21:00)
[2023-10-29] MEDS ORDERED: Mirtazapine 15 MG Tab PO SCH (21:00)
[2023-10-29] MEDS ORDERED: Atorvastatin 10 MG Tab PO SCH (21:00)
[2023-10-29] MEDS ORDERED: Nortriptyline HCl 10 MG Cap PO SCH (21:00)
[2023-10-29] MEDS ORDERED: Melatonin 5 MG Tablet PO PRN (22:25)
[2023-10-29 22:37] VITALS: BP 82/62
[2023-10-30] VITALS (16 sets, daily range): BP systolic 72–121; BP diastolic 37–90
[2023-10-30 04:14] LABS: Hematocrit 32.2 % (37.0-53.0); Hemoglobin 10.2 g/dL (13.5-17.5)
--- NOTE | 2023-10-30 04:27 | NUR ---
SHIFT SUMMARY THIS RN ASSUMED CARE OF PATIENT AT 1900. PT A&O. ABLE TO MAKE NEEDS KNOWN. REPORTS BEING ANXIOUS AND RESTLESS DURING THE NIGHT BUT STATES THAT THIS IS HIS BASELINE. BEDREST AT THIS TIME. BP'S CONTINUE TO BE SOFT. MAP >65. DENIES CHEST PAIN/PRESSURE, SOB, AND DIZZINESS. AFIB WITH BBB AND PVC'S NOTED, HR 80-90'S. ON RA WITH SPO2 >92%. DOPPLER USED FOR PEDAL/TIBIAL PULSES, MARKED WITH PEN. NO CHANGES TO WOUNDS T/O BODY. PT REPOSITIONING INDEPENDENTLY IN BED. FISTULA TO LEFT FOREARM. OLIGURIA NOTED, PT STATES THIS IS BASELINE. BED IN LOWEST POSITION AND CALL LIGHT WITHIN REACH. THIS RN WILL REPORT TO ONCOMING DAYSHIFT RN.
[2023-10-30 04:39] LABS: Albumin, Blood 3.1 g/dL (3.4-5.0); Anion Gap 13 mmol/L (3-11); Blood Urea Nitrogen 47 mg/dL (8-24); Bun/Creatinine Ratio 7.9 (12.0-20.0); CO2, Blood 29 mmol/L (21-32); Calcium, Blood 9.2 mg/dL (8.5-10.1); Chloride, Blood 98 mmol/L (98-108); Creatinine, Blood 5.93 mg/dL (0.60-1.20); Glomerular Filtration Rate 10 (60-); Glucose, Blood 101 mg/dL (70-99); Magnesium, Blood 2.8 mg/dL (1.6-2.4); Phosphorus, Blood 5.3 mg/dL (2.5-4.9); Potassium, Blood 5.2 mmol/L (3.5-5.5); Sodium, Blood 135 mmol/L (136-145)
[2023-10-30] MEDS ORDERED: Omeprazole 20 MG CapCR PO SCH (06:00)
[2023-10-30] MEDS ORDERED: Tamsulosin HCl 0.4 MG Cap PO SCH ×2 (09:00)
[2023-10-30] MEDS ORDERED: rOPINIRole HCl 2 MG Tab PO SCH (09:00)
[2023-10-30] MEDS ORDERED: Albumin (Human) 25gm/100ml 100 ML IV PRN (10:05)
--- NOTE | 2023-10-30 10:16 | NUR ---
AM NOTE: PATIENT ALERT AND ORIENTED. WEARING GLASSES. NEUROPATHY TO ALL EXTREMITIES. ONE-TWO PERSON ASSIST. COMPLAINS OF 8/10 HEADACHE THIS AM, MEDICATED PER TYLENOL WITH SOME RELIEF. DIALYSIS THIS AM AT 0830. DR. CAPONE TO BEDSIDE AND AWARE OF HEADACHE. 9 IVAN TO HEAD, INTACT AND PAIN FREE AT SITE. ON TELE SHOWING AFIB WITH BBB. HR 70-80'S. MANUAL BLOOD PRESSURE WITH SBP 80'S. PATIENT DENIES DIZZINESS. DENIES CHEST PAIN/PRESSURE/PALPITATIONS. DOPPLER USED TO FIND PEDAL/TIBIAL PULSES. PO MIDODRINE GIVEN THIS AM. DENIES SOB/COUGH. ON ROOM AIR SATING ABOVE 95%. LUNGS SOUNDING CLEAR AND DIM IN BASES. BOWEL TONES PRESENT IN ALL FOUR QUADRANTS. PATIENT EATING BREAKFAST THIS AM WITH NO ISSUES. ATTENDS IN PLACE. ABLE TO TURN SELF IN BED, NEEDS MOTIVATION AND ENCOURAGEMENT. SKIN OVERALL SCATTERED WITH SCABS AND BRUISING. HISTORY OF MULTIPLE TOE AMPUTATIONS. LEFT RING FINGER HISTORY OF SPIDER BITE WITH CHRONIC SWELLING. PATIENT AT DIALYSIS AT THIS TIME.
--- NOTE | 2023-10-30 15:19 | NUR ---
DISCHARGE: NO ACUTE CHANGES. SON IN TO ICE MAKER PATIENT. PLAN FOR HOME HEALTH. THIS RN EDUCATED ON HOME MEDS, FOLLOW UP APPOINTMENT, WOUND CARE WITH SCABS, HYPOTENSION SYMPTOMS AND SIGNS AND SYMPTOMS OF WHEN TO RETURN. IV REMOVED. PATIENT LEFT UNIT WITH ALL PERSONAL BELONGINGS VIA WHEELCHAIR.
== END 2023-10-30 15:14 | disposition home or self-care (01) | DRG 306 ==
LOC: ER 21:32 → ERHOLD 21:33 → PCU 10-29 10:24
PROVIDERS: Emergency Medicine; Family Medicine; Internal Medicine Nephrology; ADMIT Family Medicine
PROC: 5A1D70Z Performance of Urinary Filtration, Intermittent, Less than 6 Hours Per Day (ICD-10-PCS; principal; 2023-10-30)
PROC: 30233J1 Transfusion of Nonautologous Serum Albumin into Peripheral Vein, Percutaneous Approach (ICD-10-PCS; 2023-10-30)
DX: I35.0 Nonrheumatic aortic (valve) stenosis (principal); N18.6 End stage renal disease; I13.2 Hypertensive heart and chronic kidney disease with heart failure and with stage 5 chronic kidney disease, or end stage renal disease; E87.1 Hypo-osmolality and hyponatremia; I12.0 Hypertensive chronic kidney disease with stage 5 chronic kidney disease or end stage renal disease; I50.32 Chronic diastolic (congestive) heart failure; E11.22 Type 2 diabetes mellitus with diabetic chronic kidney disease; E11.40 Type 2 diabetes mellitus with diabetic neuropathy, unspecified; G47.30 Sleep apnea, unspecified; I48.91 Unspecified atrial fibrillation; Z66 Do not resuscitate; E87.5 Hyperkalemia; F12.90 Cannabis use, unspecified, uncomplicated; D69.6 Thrombocytopenia, unspecified; E11.51 Type 2 diabetes mellitus with diabetic peripheral angiopathy without gangrene; N40.0 Benign prostatic hyperplasia without lower urinary tract symptoms; E78.5 Hyperlipidemia, unspecified; Z79.899 Other long term (current) drug therapy; D63.1 Anemia in chronic kidney disease; Z99.2 Dependence on renal dialysis; Z86.718 Personal history of other venous thrombosis and embolism; Z79.01 Long term (current) use of anticoagulants; Z86.79 Personal history of other diseases of the circulatory system; Z98.890 Other specified postprocedural states; I95.89 Other hypotension; E83.39 Other disorders of phosphorus metabolism; E88.09 Other disorders of plasma-protein metabolism, not elsewhere classified
CPT/HCPCS: 36415; 80053; 80069; 83735; 84484; 85014; 85018; 85025; 93005; 93010; 93306; 93308; 93321; 96360; 96372-59; 99285-25; A9270; G0378; J0881; J1644; J7030; P9047